=== PATIENT | male | born 1975 | race Caucasian/White ===

== ENCOUNTER 2025-01-28 13:02 | Outpatient (AMB) | payer OTHER, SELFPAY ==
--- OUTSIDE RECORDS SUMMARY | 2014-03-26 06:08 | XMS_ITS | Continuity of Care Document ---
Author Organization [facility] Address [address] [place] [address] Care Team Providers Care Bacteriologist Dairy Name Role Phone Gabrielle BENITEZ, Shantal Unavailable Unavai lable Allergies, Adverse Reactions, Alerts Substance Reaction Status Criticality No Known Allergies Active No Inform ation Medications Medication Instructions Dosage Effective Dates (start - stop) Status Comments metformin 500 mg tablet TAKE 1 TABLET BY MOUTH DAILY WITH DINNER IN 2 WEEKS AND INCREASE TO TWICE A DAY THEREAFTER - Active losartan 50 mg tablet take 1 tablet by oral route every day 50 MG - Active Lipitor 10 mg tablet take 1 tablet by oral route every day 10 MG - Active METFORMIN HCL 500 MG TABLET TAKE 1 TABLET BY MOUTH DAILY WITH DINNER IN 2 WEEKS AND INCREASE TO TWICE A DAY THEREAFTER - No Longer Active metformin 500 mg tablet take 1 tablet by oral route one time daily with dinner and in 2 weeks increase to 2 times every day with morning and evening meals - No Longer Active Procedures Procedure Date Offic/Outpt E&M Estab Low-Mod 4 Systolic BP 140 Or Above Mm Hg 14 Diastolic BP Between 80-89 Mm Hg 2013 BODY MASS INDEX DOCD Current Tobacco Smoker Offic/Outpt E&M Estab Low-Mod 4 Systolic BP 140 Or Above Mm Hg 14 Diastolic BP 90 Or Above Mm Hg 14 BODY MASS INDEX DOCD Glucose Bld Monitr Ysdperj-Fgh-Ruib Use Preven Meds E&M Estab Pt; 18-39 Yr Systolic BP 140 Or Above Mm Hg 14 Diastolic BP 90 Or Above Mm Hg 14 BODY MASS INDEX DOCD Offic/Outpt E&M New Mod Sever 30Min Srvc Prvd Off Add To Basic Srvc 012 Advance Directives Directive Yes / No Effective Date File Name No Information Encounters Encounter Description Practice Location Reason(s) For Visit Diagnoses Date Provider Providers Copied on Encounter [facility] , [address], [place], [place], [id number], [address]. [place] [address] L[address] No Information 4 Gabrielle Murguia. [address] , [address], [place], [address], [place]. tel:[phone] Offic/Outpt E&M Estab LowMod [facility] , [address], [place], [place], [id number], [facility]. [place] [address] LMO Follow up on lab test(s) (chief complaint) DiabetesEssenti al hypertensionHyp erlipidemiaTran saminitis Sep-3 0- 4 Gabrielle Murguia. [address], [address], [place], [address], [place]. tel:[phone] Offic/Outpt E&M Estab LowMod [facility] , [address], [place], [place], [id number], [facility] [address] LMO Discuss blood test results (chief complaint) Essential hypertensionHig h blood sugarTransamini tisBody Mass Index 35.0-35.9, adult Sep-2 -201 4 Gabrielle Murguia. [address] , [address], [place], [address], [place]. tel:[phone] Preven Meds E&M Estab Pt; 18-39 Yr [facility] , [address], [place], [place], [id number], [facility] physical (chief complaint) Hypertensi on (chief complaint) Anxiety (chief complaint) Allergic rhinitis, cause unspecifiedRout ine Medical ExamHypertensio n, BenignRoutine Medical ExamAnxietyAnxi etyRoutine Medical ExamOther specified examinationBody Mass Index 36.0-36.9, adult 4 No Information Offic/Outpt E&M New Mod Sever 30Min [facility] , [address], [place], [place], [id number], [place] [address]. [place] [address] LMO No Information 2 Holly Tineo. [address] [facility], [address], [place], [place], [id number], [place]. tel:[phone] Family History Family Member Type Diagnosis Age At Onset Aunt Problem (finding) Cancer - tongue Uncle Problem (finding) [place] Payers Payer name Insurance type Covered republican ID Authoriza tion(s) Blue [employer] BL [id number] Social History Type Description Quantity Date Captured Comments Sex Male Smoking Status No Information Chief Complaint And Reason For Visit No Information Reason For Referral Reason For Referral No Information Plan Of Treatment Date Type Action Status Future Order: Lab Order BASIC ME TABOLIC PANEL ([id number]), Sent on: Sent Future Order: Lab Order HEPATIC FUNCTION PANEL ([id number]), Sent on: Sent Future Order: Lab Order HEMOGLOBIN A1c (4 96), Sent on: Sent Future Order: Lab Order HEPATITI S PANEL, ACUTE W/REFLEX ([id number]), Sent on: Sent History Of Present Illness Encounter Date Complaint History Of Prese nt Illness Follow up on lab test(s) atient is here to follow-up, repeat blood work showed slightly high A normal hepatitis panel, hemoglobin A1c was 7.8 and blood sugar unfortunately he is losing his insurance today's the last day and hs [facility], denies any new complaintshe has been cutting the losartan in half but no side effects so far after two dosesdenies any cardiopulmonary complaints Discuss blood test results Discuss blood test r esults (comments) patient is here to follow-up, the last blood work showed a blood sugar of 193, ALT was only minily high at 44, LDL was 208, he has had blood pressure currently not taking any blood pressure medication denies any cardiopulmonary complaints he will see an candy depositing machine operator for routine eye exam physical Hypertension Pt ascribes to w boom coat HTN. Pt asx. Anxiety (comments) physical (comments) Hypertension (comments) Anxiety The patient does not present with thoughts of or suicide. The patient denies any nausea and vomiting. Additional information: Mild. Pt declines med or referral. Functional Status Date Functional Assessmen t No Information Medications Administered Medication Instructions Dosage Effective Dates (start - stop) Status Comments METFORMIN HCL 500 MG TABLET TAKE 1 TABLET BY MOUTH DAILY WITH DINNER IN 2 WEEKS AND INCREASE TO TWICE A DAY THEREAFTER - No Longer Active Instructions Date Instruction Additional Infor mation in favor of [place] ht and diet management discussedhe cannot follow up with us anymore, liver ultrasound and further evaluation should be done by PCP as to get established patient was instructed to come in tomorrow to get a copy of his rrds Related to Transaminitis . Continue losartana t 50 mgdailyDASH diet and weight management discussed recheck BMP in diameter to 3 weeksand monitor blood pressure at home Related to Essential hypertension Lipitor was orderedb ut I suggested to holdtill he gets established with his new PCP so we can monitor his LFTdiet management discussed losing weight is strongly recommended Related to Hyperlipidemia discussed the patien t's plasty of insurance and [facility] is [facility] metformin is started, 500 mg daily andincrease to 500 mg twice a day with food in 2 weeks if tolerated he should Establish with new PCPASAP is minimally increased high liver enzyme is in favor of fatty liverand metformin is actually helpful monitor orLFT closely should be seen and blood works redone in the next3-4 weeks + Instructed to monitor and manage his diabetes to maintain a FBS below 80-120 and two hour post prandial sugar of less than 180. Target A1c goal is <7.0.+ Monitor A1c values as instructed. + Instructed the patient to obtain annual diabetic ophthalmologic exams.+ Instructed on well balanced diet and general diabetic care. + Regular exercise program. + Encourage weight loss. -- Labs: A1c, BMP, Lipids, Urn Microalbumin, CBC Related to Diabetes very minimally high ALTs I do not believe this is anything more than mild fatty liver, I would alkaline OTC meds, maintain healthy weight discussed,recheck liver panel and hepatitis panel given his high LDL stocking was ordered, his LT is only minimally high and I do not believe this is contra also indicated for fatty liver side effects reviewed,Recheck and hepatic panel in the next 2 weeks as above follow-up as above and call me as needed otherwise Related to Transaminitis his blood sugar righ t now and nonfasting was 166,I would check the ed and discussed,Diet management discussed,Losing weight also discussed,Further treatment planning would be based on the repeat blood testing Related to High blood sugar blood pressure is co nfirmed high multiple times, at this point I believe is a candidate for hypertensive medication,Normal BMP,Declines any imaging including ultrasound of the kidneys,Losartan was ordered,Side effects reviewed,DASH diet,Recheck BMP in the next 10 days and follow up to recheck the blood prere,Monitor blood pressure at home Related to Essential hypertension Assessments Type Assessment Date No Information Patient Care Teams Name Effective Dates (start - stop) Status Members No Information
--- NOTE | 2025-01-28 13:09 | MHC.PC.OV ---
Vital Signs 01/28/25 13:12 Height 5 ft 8.31 in Weight 234 lb BMI 35.3 BP 125/72 Respiration 18 Pulse 110 H Pulse Source Pulse Oximeter Temp 98.6 F Temp Source Temporal Artery Scan Pulse Oximetry (%) 98 Oxygen Delivery Method Room Air Intake Visit Reasons: establish care Lean Leader Required: No Accompanied by: Self / Same As Patient Allergies No Known Allergies Allergy (Verified 01/28/25 17:09) Medication List - Last Reconciled 01/28/25 by Swapna Douglas PA-C alprazolam 0.5 mg PO BID amlodipine 5 mg PO DAILY hydrocodone-acetaminophen 5-325 mg 1 tab PO BID PRN hydrocortisone 2.5% 1 appl topical BID-TID PRN levetiracetam 1,500 mg PO BID losartan 50 mg PO BID metformin 500 mg PO TID rosuvastatin 5 mg PO DAILY semaglutide (Ozempic) 2 mg subcut QWEEK Tobacco use date assessed: 01/28/25 Dental Screening Dental Screen Date: 01/28/25 Did you have a dental visit in the last 12 months?: Yes Did you have a dental problem in the last 6 months where you did not have access to dental care?: No Was dental information given to patient?: Patient has dentist HPI establish care HPI Details The patient is a 49-year-old male presenting for a new patient appointment and management of multiple chronic conditions. The patient has a history of brain cancer, initially diagnosed after experiencing a bump on the head and subsequent imaging revealing a tumor. He underwent emergency surgery, which was successful in removing the tumor, and has since been under the care of [facility] for follow-up scans. Recently, he underwent another surgery 14 days ago to remove a recurrent tumor, with the procedure involving lifting a titanium plate to access the tumor site. The patient reports a good recovery but is advised against heavy lifting and bending. The patient experiences anxiety, managed with alprazolam prescribed by his previous primary care provider. He takes the medication primarily at night to aid sleep and reduce anxiety symptoms. Hypertension is managed with amlodipine and losartan, with no reported side effects such as leg swelling. The patient has adhesive capsulitis in the shoulder, initially caused by a seizure-related injury. He received a cortisone injection previously, which provided relief, and is considering further orthopedic evaluation and physical therapy. Diabetes mellitus is managed with metformin and Ozempic, with recent blood work showing a non-fasting glucose level and an A1c of 5.6%. The patient seeks a dermatology referral for regular skin examinations due to a family history of melanoma and previous skin excisions. Social History - Employment: Previously worked as a claims clerk and agriculture research director, currently not working due to health issues. - Family status: Has family support living nearby. - Education: Holds a master's degree in nonprofit management. - Exercise: Engages in walking as part of recovery. [facility] Medical History (Updated 01/28/25 @ 17:12 by Swapna Douglas PA-C) Type 2 diabetes mellitus with hemoglobin A1c goal of less than 7.0% Hypertension Anxiety Brain cancer Multiple nevi Frozen shoulder Left shoulder pain Family History Father Prediabetes Mother Lung cancer Social History Housing: Apartment Alcohol intake: current Alcohol intake frequency: holidays/special occasions only Patient Tobacco Use Status: Former Tobacco user service: No Current occupational status: disabled Cognitive needs: No Hearing needs: No Vision needs: Yes (reading glasses) Questionnaire PHQ-9 Over the last 2 weeks, how often have you been bothered by any of the following problems? 1. Little interest or pleasure in doing things: not at all 2. Feeling down, depressed, or hopeless: not at all 3. Trouble falling or staying asleep, or sleeping too much: not at all 4. Feeling tired or having little energy: not at all 5. Poor appetite or overeating: not at all 6. Feeling bad about yourself - or that you are a failure or have let yourself or your family down: not at all 7. Trouble concentrating on things, such as reading the newspaper or watching television: not at all 8. Moving or speaking so slowly that other people could have noticed. Or the opposite - being so fidgety or restless that you have been moving around a lot more than usual: not at all 9. Thoughts that you would be better off or of hurting yourself in some way: not at all Total score: 0 Depression Screening Interpretation: Negative Depression Screening Done: Yes 12641 - PHQ-9 Billing: Yes Source: Developed by Drs. Tremayne Avendano, Estelle Zhang, Kane Moseley and colleagues, with an educational briana from [employer] Thrive Questionnaire Date Thrive assessed: 01/28/25 I am a: Patient What is your living situation today?: I have a steady place to live Within the past 12 months, did the food you bought not last and you didn't have the money to get more?: Never true Within the past 12 months, did you worry whether your food would run out before you got money to buy more?: Never true Do you have trouble paying for medicines?: No Do you have trouble getting transportation to medical appointments?: No Do you have trouble paying your heating and electricity bill?: No Do you have trouble taking care of your child, family member or friend?: No Do you have trouble with day-to-day activities such as bathing, preparing meals, shopping, managing finances, etc.?: No Are you currently unemployed and looking for a job?: No Are you interested in more education?: No Please select the resources that you would like help with: None THRIVE Score: 0 AUDIT C Alcohol Use Questionnaire (AUDIT-C) 1. How often do you have a drink containing alcohol?: Monthly or less 2. How many drinks containing alcohol do you have on a typical day when you are drinking?: 1 or 2 3. How often do you have six or more drinks on one occasion?: Never Total Score: 1 Score Reviewed/Action Taken: No LINDA-7 AMB Questionnaire LINDA-7 Date LINDA - 7 assessed: 01/28/25 Feeling nervous, anxious, or on edge: 0 = Not at all Not being able to stop or control worryin = Not at all Worrying too much about different things: 0 = Not at all Trouble relaxin = Not at all Being so restless that it is hard to sit still: 0 = Not at all Becoming easily annoyed or irritable: 0 = Not at all Feeling afraid as if something awful might happen: 0 = Not at all Total LINDA-7 score (0-4 normal; 5-9 mild; 10-14 moderate; 15-21 severe): 0 Source: Developed by Drs. Tremayne Avendano, Kane Irvinnke and colleagues, with an educational briana from [employer] LINDA-7 Assessment Billing LINDA-7 Assessment Tool: LINDA-7 Assessment 92885 Review of Systems Const Details: - Cardiovascular: Denies chest pain, reports fast heart rate. - Neurological: Reports history of seizures, denies current symptoms. - Musculoskeletal: Reports shoulder pain, limited range of motion. - Dermatological: Reports skin irritation, seeking dermatology referral. - Gastrointestinal: Denies black or bloody stools, reports no unintentional weight loss. All systems reviewed & are unremarkable except as noted in HPI and below Physical exam (Primary Care) Vital Signs: Last Vital Signs Temp 98.6 F 01/28/25 13:12 Pulse 110 H 01/28/25 13:12 Resp 18 01/28/25 13:12 BP 125/72 01/28/25 13:12 Pulse Ox 98 01/28/25 13:12 Oxygen Delivery Method Room Air 01/28/25 13:12 Care Plan Goal for BP management: <140/90 at Goal BMI result Body Mass Index 35.3 BMI Assessment/Plan discussion: High BMI High, discussed plan: lifestyle, weight reduction, dietary, physical activity, alcohol moderation and other Tobacco/Smoking Status: Tobacco use Status Tobacco use date assessed 01/28/25 01/28/25 13:27 Patient Tobacco Use Status Former Tobacco user 01/28/25 13:27 PHQ-9: PHQ-9 Score PHQ-9: Total score 0 01/28/25 13:27 Depression Screening Interpretation: Negative Thrive Assessment: Date of Thrive Assessment Date Thrive assessed 01/28/25 01/28/25 13:27 Const Other: Appearance: Alert. Oriented X3. No acute distress. Head: Normal external exam. Normocephalic. Atraumatic. Scar from recent brain surgery noted. Eyes: Pupils are equal, round, and reactive to light. Extraocular movements intact. Conjunctiva and sclera normal. Eyelids normal. Ears: External auditory canal normal. Tympanic membranes normal. Throat: Pharynx normal. Uvula midline. Moist mucous membranes. Neck: Normal inspection. Neck supple. Full range of motion. No adenopathy. Thyroid Normal. No meningeal signs. No neck mass noted. Cardiovascular: Fast heart rate, but normal rhythm. Heart sound normal. No murmurs noted. Pulses normal throughout. Respiratory: No respiratory distress. Painless inspiration. Breath sounds normal. No wheezes/rales/rhonchi noted. Chest nontender. No accessory muscle usage noted or decreased air movement noted. Abdomen: Soft and nontender. Bowel sounds normal in all 4 quadrants. No distention noted. No organomegaly noted. No visible injury noted. Back: No costovertebral angle tenderness. Full range of motion noted. Skin: Skin warm and dry. Normal skin color. Normal skin turgor. No rashes/lesions/lacerations noted. Recent excisions on back from dermatological procedures. Extremities: No lower extremity edema. Extremities exhibit normal range of motion. Extremities nontender. Limited range of motion in shoulder due to adhesive capsulitis. Neuro: Oriented X 3. No motor deficit. No sensory deficit. Reflexes normal. Results Reviewed Results Reviewed: - Labs: A1c 5.6%, non-fasting glucose level elevated. Coding Level of Care Code New Pt Level 4 (28319) Complex EM visit Add On G2211 Diagnoses Brain cancer C71.9 Anxiety F41.9 Hypertension I10 Frozen shoulder M75.00 Left shoulder pain M25.512 Type 2 diabetes mellitus with hemoglobin A1c goal of less than 7.0% E11.9 Multiple nevi D22.9 Additional Codes PHQ-9 - 37560 - PHQ-9 Billing: Yes ([id number]) LINDA-7 Assessment Billing - LINDA-7 Assessment Tool: LINDA-7 Assessment 88432 ([id number]) Time Spent (min) 50 Assessment & Plan Assessment & Plan (1) Brain cancer: Code(s): C71.9 - Malignant neoplasm of brain, unspecified Category: Medical Plan: The patient will continue follow-up with his oncologist, Dr. Scott, with a virtual appointment scheduled for February 01 to discuss biopsy results and further management. He is advised to avoid heavy lifting and bending during recovery. Patient will also be reduced from [place] every 6 hours 2 [place] 5 x 325 twice a day. Patient understands agrees with this plan. (2) Anxiety: Code(s): F41.9 - Anxiety disorder, unspecified Category: Medical Plan: The patient will continue taking alprazolam, with a plan to reduce the dosage to two pills per day. A pain contract will be signed, and a drug test will be conducted to monitor medication use. (3) Hypertension: Code(s): I10 - Essential (primary) hypertension Category: Medical Plan: The patient will continue current antihypertensive medications, amlodipine and losartan, with no changes discussed. (4) Frozen shoulder: Code(s): M75.00 - Adhesive capsulitis of unspecified shoulder Category: Medical Plan: The patient will be referred to orthopedics and pain management for further evaluation and possible cortisone injection. Physical therapy will be considered to improve shoulder mobility. (5) Left shoulder pain: Code(s): M25.512 - Pain in left shoulder Category: Medical Plan: The patient will be referred to orthopedics and pain management for further evaluation and possible cortisone injection. Physical therapy will be considered to improve shoulder mobility. (6) Type 2 diabetes mellitus with hemoglobin A1c goal of less than 7.0%: Code(s): E11.9 - Type 2 diabetes mellitus without complications Category: Medical Plan: The patient will continue current diabetes management with metformin and Ozempic, with no changes discussed. (7) Multiple nevi: Code(s): D22.9 - Melanocytic nevi, unspecified Category: Medical Plan: A referral to dermatology will be made for regular skin examinations due to a family history of melanoma. Plan Plan Patient was informed and verbally consented to the use of an ambient scribe for clinic note documentation during this visit. 1. Brain Cancer The patient will continue follow-up with his oncologist, Dr. Scott, with a virtual appointment scheduled for February 01 to discuss biopsy results and further management. He is advised to avoid heavy lifting and bending during recovery. 2. Anxiety The patient will continue taking alprazolam, with a plan to reduce the dosage to two pills per day. A pain contract will be signed, and a drug test will be conducted to monitor medication use. 3. Hypertension The patient will continue current antihypertensive medications, amlodipine and losartan, with no changes discussed. 4. Adhesive Capsulitis The patient will be referred to orthopedics and pain management for further evaluation and possible cortisone injection. Physical therapy will be considered to improve shoulder mobility. 5. Diabetes Mellitus The patient will continue current diabetes management with metformin and Ozempic, with no changes discussed. 6. Preventative Care: Dermatology Referral For Skin Examination A referral to dermatology will be made for regular skin examinations due to a family history of melanoma. I discussed with the patient the importance of continuing follow-up with his oncologist for brain cancer management, including the upcoming virtual appointment to review biopsy results. We also talked about managing anxiety with a reduced dosage of alprazolam and the necessity of signing a pain contract and undergoing drug testing. For hypertension, the patient will maintain his current medication regimen. I recommended referrals to orthopedics and pain management for his shoulder condition and discussed the potential benefits of physical therapy. We agreed on a dermatology referral for regular skin checks due to his family history of melanoma. Orders: Orders PT Evaluation and Treatment Today M25.512 - Pain in left shoulder, M75.00 - Adhesive capsulitis of unspecified shoulder XR shoulder LT min 2V Today M25.512 - Pain in left shoulder, M75.00 - Adhesive capsulitis of unspecified shoulder Drug Screen Urine Today M25.512 - Pain in left shoulder, M75.00 - Adhesive capsulitis of unspecified shoulder Referrals Orthopedics Referral M25.512 - Pain in left shoulder, M75.00 - Adhesive capsulitis of unspecified shoulder Pain Management Referral M25.512 - Pain in left shoulder, M75.00 - Adhesive capsulitis of unspecified shoulder Dermatology Referral D22.9 - Melanocytic nevi, unspecified Medications: New hydrocortisone 2.5% 1 appl topical BID-TID PRN 454 grams 1RF itching Patient Instructions: - Continue follow-up with your oncologist and attend the virtual appointment on February 01. - Take alprazolam as prescribed, reducing to two pills per day. - Maintain current blood pressure medications and monitor for any side effects. - Follow up with orthopedics and pain management for shoulder evaluation and consider physical therapy. - Schedule a dermatology appointment for a skin examination. - Complete the drug test as instructed and sign the pain contract.
[2025-01-28 13:12] VITALS: BP 125/72; PULSE 110; RESP 18; TEMP 37; O2SAT 98; BMI 35.3
--- OUTSIDE RECORDS SUMMARY | 2025-01-28 14:17 | XMS_ITS | Encounter Summary ---
Author Organization [facility] Address [address] [place] [id number] Phone Care Team Providers Care Poultry Hatchery Manager Name Role Phone Self-Referred, Patient Unavailable Unavailab Lucio Arora MD Primary Care Provider [phone] Encounter Details Date Type Department Care Team (Late st Contact Info) Description 01/13/[address] [facility] [address] [place] [address] Social History Tobacco Use Types Packs/Day Years Used Date Smoking Tobacco: Former Cigarettes Smokeless Tobacco: Never Comments:Quit 2015 Uses nicotine gum Alcohol Use Standard Drinks/Week Comments Yes 0 (1 standard drink = 0.6 oz pur e alcohol) 3 drinks per week Child or Family Care Answer Date Record ed Do you have problems with on e of the following making it difficult for you to work, study, or receive health care? No 12/30/2024 Education Answer Date Recorded Are you interested in help w ith more adult education (for example, completing high school, GED, job training, learning the [place] language, technical skills, or developing parenting skills)? No 12/30/2024 Are you concerned about learning? Not on file 12/30/2024 No 12/30/2024 Yes 12/30/2024 Food Answer Date Recorded Within the past 6 months we worried whether our food would run out before we got money to buy more. Never True 01/13/2025 Within the past 6 months the food we bought just didn't last and we didn't have enough money to get more. Never True Residential Stability Answer Date Recor ded What is your housing situation today? I have vesta deshpande 01/13/2025 How many times have you moved in the past 12 sat ths? One time 01/13/2025 Paying for Meds Answer Date Recorded Do you have trouble paying for medicines? No 01/13/2025 Paying Utility Bills Answer Date Record ed Do you have trouble paying your heating or elect ricity bill? No 01/13/2025 Transportation Answer Date Recorded Has the lack of transportati on kept you from medical appointments or from getting medications? No 01/13/2025 Digital Access Answer Date Recorded No 01/13/2025 Yes 01/13/2025 Do you have reliable internet access at home? Ye s 01/13/2025 Do you have a device (e.g., phone, tablet, computer) with a working camera? Yes 01/13/2025 Intimate Partner Violence Answer Date R ecorded Are you denied basic needs s uch as food, clothing, or medical care? No 01/13/2025 In the past 12 months have y ou been in a relationship with a person who hurts, threatens, or tries to control you? No 01/13/2025 Are you denied basic needs s uch as food, clothing, or medical care? No 01/13/2025 In the past 12 months have y ou been in a relationship with a person who hurts, threatens, or tries to control you? No 01/13/2025 Sex and Gender Information Value Date Recorded Sex Assigned at Male 08/18/2024 2:58 PM EDT Legal Sex Male 2:57 PM EDT Gender Identity Male 08/18/2024 2:58 PM EDT Sexual Orientation Straight 08/18/2024 2: 58 PM EDT documented as of this encounter Functional Status * Calculated C-SSRS Risk Score (Lifetime/Recent) Answer Date of Assessment Author No Risk Indicated 01/14/2025 4:00 AM Bev Parra RN * [place] Suicide Severity Rating Scale (Screener/Recent Self-Report) Question Answer Date of Assessment Author 1. Wish to be (Past 1 Month) No 025 4:00 AM Bev Parra RN 2. Non-Specific Active Suici wilder Thoughts (Past 1 Month) No 01/14/2025 4:00 AM EDT Sergey Harrell RN 6. Suicidal Behavior (Lifetime) No 4:00 AM EDT Bev Harrell RN documented as of this encounter Plan of Treatment Upcoming Encounters Date Type Department Care Team (Late st Contact Info) Description 02/01/2025 2:00 PM EDT [facility] [address] [place] [address] Meghna Galeano MD, MPH [address] [place] [id number] [email or web address] documented as of this encounter Visit Diagnoses Not on filedocumented in this encounter Care Teams Poultry Hatchery Manager Relationship Specialty Start Date End Date Lucio Bhatt MD [address] [place] [id number] PCP - General Internal Medicine 08/18/24 Self-Referred, Patient 08/18/24 documented as of this encounter Additional Source Comments The information contained in this document represents components of the legal health record. It is not the complete legal health record.[facility]
--- OUTSIDE RECORDS SUMMARY | 2025-01-28 14:17 | XMS_ITS | Clinical Summary ---
Author Organization [facility] Address [address] [id number] Phone Care Team Providers Care Prepress Specialist Name Role Phone Self-Referred, Patient Unavailable Unavailab Lucio Arora MD Primary Care Provider [phone] Allergies No known active allergies Medications HYDROcodone-les taminophen (NORCO) 5-325 mg per tablet Take 1 tablet by mouth every 6 (six) hours as needed. 12/15/19 25 Active acetaminophen (TYLENOL) 500 MG tablet Take 1,000 mg by mouth. 04/07/20 24 Active ALPRAZolam (XANAX) 0.5 MG tablet Take 0.5 mg by mouth. 12/11/19 25 Active amLODIPine (NORVASC) 5 MG tablet Take 5 mg by mouth daily. Active atorvastatin (LIPITOR) 20 MG tablet Take 1 tablet by mouth daily. Active losartan (COZAAR) 50 MG tablet Take 50 mg by mouth 2 (two) times a day. Active metFORMIN (GLUCOPHAGE) 500 MG tablet Take 500 mg by mouth 4 (four) times a day. Active rosuvastatin (CRESTOR) 5 MG tablet Take 5 mg by mouth daily. Active OZEMPIC 2 mg/dose (8 mg/3 mL) subcutaneous injection pen inject 2 mg subcutaneously every 7 days Active FREESTYLE 28 gauge lancets Active polyethylene glycol (MIRALAX) 17 gram packet Take 17 g by mouth daily as needed for other (free text field) (severe constipation). 01/15/20 25 Active oxyCODONE 5 MG immediate release tablet Take 0.5-1 tablets (2.5-5 mg total) by mouth every 6 (six) hours as needed for pain (specific location in comments). Partial fill ok 10 tablet 01/15/20 25 Active HYDROcodone-les taminophen (NORCO) 5-325 mg per tablet Take 1 tablet by mouth every 6 (six) hours as needed for pain (specific location in comments). Partial fill ok 15 tablet 01/15/20 25 Active levETIRAcetam (KEPPRA) 750 MG IMMEDIATE release tablet Take 1 tablet (750 mg total) by mouth 2 (two) times a day. 180 tablet 01/27/20 25 Active levETIRAcetam (KEPPRA) 750 MG IMMEDIATE release tablet Take 750 mg by mouth. 12/11/19 25 025 Discontinu ed(Reorder ) dexAMETHasone (DECADRON) 1 MG tablet Take 4 tablets (4 mg total) by mouth 2 (two) times a day with meals for 1 day, THEN 2 tablets (2 mg total) 2 (two) times a day with meals for 1 day, THEN 1 tablet (1 mg total) 2 (two) times a day with meals for 1 day. 14 tablet 01/15/20 25 025 Active Problems Problem Noted Date Diagnosed Date Brain lesion 01/13/2025 Glioblastoma 11/11/2024 Encounters Date Type Department Care Team Description 01/26/2025 Orders Only [facility] [address] [facility], 9th [place] [address] Zara Rooney NP 01/21/2025 11:30 AM EDT Office Visit [facility] Department of Neurosurgery [address] [place] [address] Aroldo Knapp MD Moran, Christine, PA-C Glioblastoma (Primary Dx) 01/15/2025 Telephone [facility] [address] [place] [address] Francesca Mcmahon PA-C 01/13/2025 9:30 AM EDT - 01/13/2025 2:[address] [facility] Periop [address] [place] [address] Aroldo Knapp MD Right craniotomy for tumor resection (MONITORING CONFIRMED FOR 01/13 AT 9:30AM) 01/13/2025 9:24 AM EDT Anesthesia Event [facility] Periop [address] [place] [address] Ariana Monge MD Cavagnaro, Laura Kristen, RN 01/13/2025 7:37 AM EDT - 01/14/2025 2:56 PM EDT Hospital Encounter [facility] 5D [address] [place] [address] Aroldo Knapp MD Discharge Disposition: Home or Self Care 01/13/2025 Procedure Pass [facility] [address] [place] [address] 01/13/[address] [facility] Periop [address] [place] [address] 01/12/2025 10:24 AM EDT - 01/12/2025 11:59 PM EDT Hospital Encounter [facility] Laboratory [address] [place] [address] Aroldo Knapp MD Discharge Disposition: Home or Self Care 01/12/[address] [facility] Department of Neurosurgery [address] [place] [address] Rosa Garcia, RN 01/11/[address] [facility] Department of Neurosurgery [address] [place] [address] Rosa Garcia, RN 01/11/[address] [facility] Department of Neurosurgery [address] [place] [address] Rosa Garcia, RN 01/08/2025 1:07 PM EDT - 01/08/2025 11:59 PM EDT Hospital Encounter [facility], [facility] [address] [place] [address] Discharge Disposition: Home or Self Care 01/08/2025 Orders Only [facility], [facility] [address] [facility], 9th [place] [address] Meghna Galeano MD, MPH Glioma (Primary Dx) 01/07/2025 3:30 PM EDT Pre-Admission Testing [facility] [address] [facility] 2[address] [place] [address] Aroldo Knapp MD Pre-op evaluation (Primary Dx) 01/01/2025 3:26 PM EDT - 01/01/2025 11:59 PM EDT Hospital Encounter [facility] Anatomic Pathology [address] [place] [address] Discharge Disposition: Home or Self Care 12/31/2024 1:30 PM EDT Telemedicine [facility] Neurosurgery [facility] [address] [facility], 9th Floor, [address] [place] [address] Aroldo Knapp MD Glioblastoma (Primary Dx) 12/31/[address] [facility] Department of Neurosurgery [address] [place] [address] Aroldo Knapp MD 12/30/2024 11:30 AM EDT Office Visit [facility], [facility] [place] [address] [facility], [address]th [place] [address] Meghna Galeano MD, MPH Glioblastoma (Primary Dx) 12/30/2024 7:10 AM EDT - 12/30/2024 11:59 PM EDT Hospital Encounter [facility], [facility] [address] [address] Meghna Galeano MD, MPH Discharge Disposition: Home or Self Care 11/11/2024 3:00 PM EDT Office Visit [facility], [facility] [address] [facility], [address]th [place] [address] Meghna Galeano MD, MPH Glioblastoma (Primary Dx) 11/11/2024 Procedure Pass [facility], [facility] [address] [address] 11/04/2024 10:05 AM EDT - 11/04/2024 11:59 PM EDT Hospital Encounter [facility], [facility], MRI [address] [facility] [place] [address] Aashish Jackson MD Discharge Disposition: Home or Self Care 09/02/2024 Procedure Pass [facility], [facility], MRI [address] [place] [address] from Last 3 Months Social History Tobacco Use Types Packs/Day Years Used Date Smoking Tobacco: Former Cigarettes Smokeless Tobacco: Never Tobacco Cessation:Counseling Given: Not Answered Comments:Quit 2015 Uses nicotine gum Alcohol Use [...] high school, GED, job training, learning the [place] language, technical skills, or developing parenting skills)? [...] your housing situation today? I have vesta sing 01/13/2025 How many times have you moved [...] Orientation Straight 08/18/2024 2: 58 PM EDT Last Filed Vital Signs Vital Sign Reading Time Taken Comments Blood Pressure 164/82 01/21/2025 11:20 AM EDT Pulse 105 01/21/2025 11:20 AM EDT Temperature 37.2 C (99 F) 01/21/2025 11:20 AM EDT Respiratory Rate 16 01/21/2025 11:2 0 AM EDT Oxygen Saturation 98% 01/21/2025 11: 20 AM EDT Inhaled Oxygen Concentration 100% 01/13/2025 1 :35 PM EDT Weight 107.1 kg (236 lb 1.6 oz) 025 11:20 AM EDT Height 171.5 cm (5' 7.52 ) 01/21/2025 1 1:20 AM EDT Body Mass Index 36.41 01/21/2025 11:20 AM EDT Plan of Treatment Upcoming Encounters Date Type Department Care Team (Late st Contact Info) Description 02/01/2025 2:00 PM EDT [facility]icine [facility] [address] [facility], [address]th [place] [address] Meghna Galeano MD, MPH [address] [place] [address], [place] [address] [email or web address] Maintenance Due Date Last Done Comments Adult Td,Tdap Booster 1975 DEPRESSION SCREENING 1987 SMOKING Hx and SMOKELESS TOBACCO SCREENING 10/15/1988 HEPATITIS C SCREENING 10/15/1993 HIV ONE-TIME SCREENING (18-65 YEARS) 10/15/1993 PNEUMOCOCCAL VACCINES (0-49 years) (1 of 2 - PCV) 10/15/1994 COLOGUARD 10/15/2020 COLONOSCOPY 10/15/2020 COLORECTAL CANCER SCREENING 10/15/2020 FIT TEST 10/15/2020 FOBT 10/15/2020 SIGMOIDOSCOPY 10/15/2020 VIRTUAL COLONOSCOPY 10/15/2020 INFLUENZA VACCINE (#1) 2024 COVID-19 VACCINE ( season) 2025 HEMOGLOBIN A1C 05/29/2025 11/26/2024, 07/11/2024 BLOOD PRESSURE 07/24/2025 01/21/2025 DIABETIC EYE EXAM 12/04/2025 12/04/2024, , 09/27/2023, Additional history exists CREATININE LEVEL 01/14/2026 01/14/2025, , 12/30/2024, Additional history exists POTASSIUM LEVEL 01/14/2026 01/14/2025, 12/26, 12/30/2024, Additional history exists HEPATITIS A VACCINES Aged Out No long er eligible based on patient's age to complete this topic HIB VACCINES Aged Out No longer eligi ble based on patient's age to complete this topic MENINGOCOCCAL VACCINES (ACWY) Aged Out No longer eligible based on patient's age to complete this topic MENINGOCOCCAL VACCINES (B) Aged Out N o longer eligible based on patient's age to complete this topic Medical Devices Implanted Type Area Loader [employer] Dies Device Identifier Shelf Expiration Date Model / Serial / Lot Graft Tissue 2.0 Oliva Duragen Plus Ultra Pure Collagen Regeneration Matrix Dural Ca/1ea - [id number] Implanted:Qty: 1 on 01/13/2025 by Aroldo Knapp MD at [facility] STANDARD Right: Cranial [employer]NA 07/25/2027 [id number] / / [id number] Titanium Description:In skull Plate In Head Procedures Procedure Name Priority Date/Time Associated Diagnosis Comments POCT GLUCOSE Routine 01/14/2025 12:30 PM EDT BASIC METABOLIC PANEL Routine 01/14/2025 7:31 AM EDT CBC Routine 01/14/2025 7:31 AM EDT MAGNESIUM Routine 01/14/2025 7:31 AM EDT POCT GLUCOSE Routine 01/14/2025 7:23 AM EDT MRI BRAIN WITH AND WITHOUT CONTRAST Imaging within next 12 hours 01/14/2025 1:17 AM EDT POCT GLUCOSE Routine 01/13/2025 10:37 PM EDT POCT GLUCOSE Routine 01/13/2025 4:25 PM EDT ECG 12-LEAD Routine 01/13/2025 3:47 PM EDT PTT STAT 01/13/2025 1:48 PM EDT PT-INR STAT 01/13/2025 1:48 PM EDT CBC STAT 01/13/2025 1:48 PM EDT BASIC METABOLIC PANEL STAT 01/13/2025 1:48 PM EDT POCT GLUCOSE Routine 01/13/2025 1:47 PM EDT ANATOMIC PATHOLOGY Routine 01/13/2025 12:09 PM EDT NC INSERT CATH ART PERCUT SHORTTERM PERF Routine 01/13/2025 10:21 AM EDT AIRWAY PLACEMENT Routine 01/13/2025 9:54 AM EDT NC EXCIS SUPRATENT BRAIN TUMOR 01/13/2025 9:12 AM EDT Brain tumor Special Needs Laterality: RightSurgical Control Time: 4 hours Patient Position: LateralEquipment: Microscope, Becky Bipolars, Brainlab, Ultrasound , and Ultralow bedICU needs: CRANI Pathway(MONITORING CONFIRMED FOR 01/13 AT 9:30AM) POCT GLUCOSE Routine 01/13/2025 8:00 AM EDT TYPE AND SCREEN (ABO,RH,ANTIBODY SCREEN) Routine 01/12/2025 10:25 AM EDT Pre-op evaluation PT-INR Routine 01/12/2025 10:25 AM EDT Pre-op evaluation PTT Routine 01/12/2025 10:25 AM EDT Pre-op evaluation ONCOPANEL Routine 01/08/2025 1:08 PM EDT Glioma MRI BRAIN WITH AND WITHOUT CONTRAST Routine 12/30/2024 8:23 AM EDT Glioblastoma COMPREHENSIVE METABOLIC PANEL Routine 12/30/2024 7:06 AM EDT Glioblastoma HC BLOOD COUNT COMPLETE AUTO&AUTO DIFRNTL WBC Routine 12/30/2024 7:06 AM EDT Glioblastoma MRI BRAIN (TUMOR) WITH AND WITHOUT CONTRAST Routine 11/04/2024 10:49 AM EDT Glioblastoma COMPREHENSIVE METABOLIC PANEL Routine 11/04/2024 10:03 AM EDT Glioblastoma HC BLOOD COUNT COMPLETE AUTO&AUTO DIFRNTL WBC Routine 11/04/2024 10:03 AM EDT Glioblastoma from Last 3 Months Results * (ABNORMAL) POCT Glucose (01/14/2025 12:30 PM EDT) Only the most recent of6 resultswithin the time period is included. Glucose, POCT 209(H) 70 - 100 mg/dL [facility] 01/14/2025 12:3 0 PM EDT 01/14/2025 12:33 PM EDT Aroldo Knapp MD POINT OF CARE TEST ORDERABLES Fi nal Result Performing Organization Address City/[facility] Co de Phone Number [facility] [address] [place] [phone] * (ABNORMAL) CBC (01/14/2025 7:31 AM EDT) Only the most recent of2 resultswithin the time period is included. WBC 11.94(H) 4.00 - 11.00 K/uL [facility] RBC 4.36(L) 4.50 - 5.90 M/uL [facility] HGB 13.0(L) 13.5 - 17.5 g/dL [facility] HCT 39.1(L) 41.0 - 53.0 % [facility] PLT 322 150 - 450 K/uL [facility] MCV 89.7 80.0 - 100.[address] [facility] MCH 29.8 27.0 - 31.[address] [facility] MCHC 33.2 32.0 - 36.0 g/dL [facility] RDW 13.3 11.5 - 14.5 % [facility] MPV 8.9 8.4 - 12.[address] [facility] NRBC 0.00 0.00 /[address] [facility] ABSOLUTE NRBC 0.00 0.00 K/uL [facility] Blood 01/14/2025 7:31 AM EDT 01/14/2025 7:59 AM EDT us Aroldo Knapp MD LAB BLOOD ORDERABLES Final Resul t Performing Organization Address City/[facility]/ZIP Co de Phone Number [facility] [address] [place] [phone] * Magnesium (01/14/2025 7:31 AM EDT) MAGNESIUM 1.8 1.7 - 2.6 mg/dL [facility] Blood 01/14/2025 7:31 AM EDT 01/14/2025 7:59 AM EDT Aroldo Knapp MD LAB BLOOD ORDERABLES Final Resul t Performing Organization Address [facility] de Phone Number [facility] [address] [place] [phone] * (ABNORMAL) Basic metabolic panel (01/14/2025 7:31 AM EDT) Only the most recent of2 resultswithin the time period is included. SODIUM 139 136 - 145 mmol/L [facility] POTASSIUM 4.0 3.4 - 5.1 mmol/L [facility] CHLORIDE 104 98 - 107 mmol/L [facility] CO2 25 22 - 31 mmol/L [facility] BUN 6 6 - 23 mg/dL [facility] CREATININE 0.62 0.50 - 1.20 mg/dL [facility] GLUCOSE 178(H) 70 - 100 mg/dL [facility] CALCIUM 9.0 8.8 - 10.7 mg/dL [facility] EGFR 117 >59 mL/min/1.[address] [facility] Comment:Estimated glomerular filtration rate calculated using the CKD-EPI refit equation. ANION GAP 10 7 - 17 mmol/L [facility] Blood 01/14/2025 7:31 AM EDT 01/14/2025 7:59 AM EDT us Aroldo Knapp MD LAB BLOOD ORDERABLES Final Resul t Performing Organization Address [facility] de Phone Number [facility] [address] [place] [phone] * MRI BRAIN WITH AND WITHOUT CONTRAST (01/14/2025 1:17 AM EDT) Anatomical Region Laterality Modality Head Magnetic Resonan ce 01/14/2025 7:43 AM EDT Impressions 01/14/2025 9:01 AM EDT 1. Overall expected postsurgical changes of right parietal craniotomy for mass resection. 2. Trace layering intraventricular blood products. No evidence of hydrocephalus. ATTESTATION: I, Pantera Barger, as teaching physician have reviewed the images, if any, for this patient's exam, and if necessary, have edited the report originally created by Latasha Colmenares. Narrative 01/14/2025 9:01 AM EDT MRI BRAIN WITH AND WITHOUT CONTRAST Referring clinician's provided indication for this examination in [facility]: * Brain mass or lesion Review of the Electronic Medical Record reveals an additional history of: Per neurosurgery report: History significant for PMHx R parietal crani s/p resection 01/2025 (OSH), now presents with disease recurrence. Now, s/p R redo crani for resection with Dr. Knapp on 01/13/25. TECHNIQUE: MRI BRAIN WITH AND WITHOUT CONTRAST Multi-sequence, multi-planar MRI of the brain was performed before and after intravenous contrast. COMPARISON: MRI BRAIN WITH AND WITHOUT CONTRAST ; MRI BRAIN (TUMOR) WITH AND WITHOUT CONTRAST ; MRI BRAIN (TUMOR) WITH AND WITHOUT CONTRAST FINDINGS: Brain Parenchyma: Interval right posterior parietal craniotomy for resection of enhancing mass with small-volume postoperative cast of blood products within the resection cavity. Linear foci of reduced diffusivity along the resection margin, likely reflecting devitalized tissue and adjacent blood products. Scattered foci of predominantly linear enhancement immediately along the resection margin. Slightly increased degree of FLAIR hyperintensity subjacent to the resection site. Similar scattered small chronic infarctions involving the left winters radiata, bilateral basal ganglia, and bilateral cerebellar hemispheres. Ventricular System and Extra-Axial Spaces: Small-volume layering intraventricular hemorrhage within the occipital horns. No evidence of hydrocephalus. Extracranial Structures: Expected arterial flow signal is observed at the skull base. Paranasal sinuses mastoid air cells are clear. Procedure Note Pantera Barger MD - 01/14/2025 MRI BRAIN WITH AND WITHOUT CONTRAST Referring clinician's provided indication for this examination in [facility]: *Brain mass or lesion Review of the Electronic Medical Record reveals an additional history of: Per neurosurgery report: History significant for PMHx R parietal cranis/p resection 01/2025 (OSH), now presents with disease recurrence. Now, s/pR redo crani for resection with Dr. Knapp on 8/20/25. TECHNIQUE: MRI BRAIN WITH AND WITHOUT CONTRAST Multi-sequence, multi-planar MRI of the brain was performed before andafter intravenous contrast. COMPARISON: MRI BRAIN WITH AND WITHOUT CONTRAST ; MRI BRAIN(TUMOR) WITH AND WITHOUT CONTRAST ; MRI BRAIN (TUMOR) WITH ANDWITHOUT CONTRAST FINDINGS: Brain Parenchyma: Interval right posterior parietal craniotomy forresection of enhancing mass with small-volume postoperative cast of bloodproducts within the resection cavity. Linear foci of reduced diffusivityalong the resection margin, likely reflecting devitalized tissue andadjacent blood products. Scattered foci of predominantly linearenhancement immediately along the resection margin. Slightly increaseddegree of FLAIR hyperintensity subjacent to the resection site. Similar scattered small chronic infarctions involving the left coronaradiata, bilateral basal ganglia, and bilateral cerebellar hemispheres. Ventricular System and Extra-Axial Spaces: Small-volume layeringintraventricular hemorrhage within the occipital horns. No evidence ofhydrocephalus. Extracranial Structures: Expected arterial flow signal is observed at theskull base. Paranasal sinuses mastoid air cells are clear. IMPRESSION: 1. Overall expected postsurgical changes of right parietal craniotomy formass resection. 2. Trace layering intraventricular blood products. No evidence ofhydrocephalus. ATTESTATION: I, Pantera Barger, as teaching physician have reviewed theimages, if any, for this patient's exam, and if necessary, have edited thereport originally created by Latasha Colmenares. Aroldo Knapp MD IMG MR HEAD/NECK Final Result * ECG 12-LEAD (01/13/2025 3:47 PM EDT) Systolic Blood Pressure 151 mmHg [facility] Diastolic Blood Pressure 74 mmHg [facility] Ventricular Rate EKG/MIN 119 BPM [facility] Atrial Rate 119 BPM [facility] NC Interval 180 ms [facility] QRS Duration 88 ms [facility] QT Interval 320 ms [facility] QTC Interval 450 ms [facility] P [place] 58 degrees [facility] R Wave [place] -74 degrees [facility] T Wave [place] 73 degrees [facility] 01/13/2025 3:47 PM EDT Narrative [facility] - 01/14/2025 3:21 PM EDT Sinus tachycardia Left axis deviation Abnormal ECG Lucio Tucker PA-C ECG ORDERABLES Final Resul t Performing Organization Address City/[facility] Co de Phone Number [facility] * PTT (01/13/2025 1:48 PM EDT) Only the most recent of2 resultswithin the time period is included. APTT 26.0 24.0 - 37.[address] [facility] Comment:Emicizumab (Hemlibra ) treatment can result in falsely lowered aPTT test results. Blood 01/13/2025 1:48 PM EDT 01/13/2025 1:53 PM EDT Aroldo Knapp MD LAB BLOOD ORDERABLES Final Resul t Performing Organization Address [facility] Co de Phone Number [facility] [employer] [address] [place] [phone] * PT-INR (01/13/2025 1:48 PM EDT) Only the most recent of2 resultswithin the time period is included. PT 11.3 10.0 - 13.[address] [facility] INR 1.0 0.9 - 1.1 [facility] Blood 01/13/2025 1:48 PM EDT 01/13/2025 1:53 PM EDT Aroldo Knapp MD LAB BLOOD ORDERABLES Final Resul t Performing Organization Address City/[facility] Co de Phone Number [facility] [employer] [address] [place] [phone] * Anatomic Pathology (01/13/2025 12:09 PM EDT) 01/13/2025 12:0 9 PM EDT 01/13/2025 12:[address] [facility] - 01/18/2025 1:01 PM EDT CASE: [id number] PATIENT: MÓNICA HURST Date: 1975 Sex: Male [facility] Department of Pathology [address] [place] [address] License No.: [id number] Clinical Education Consultant: Dr. Joe Belcher M.D., Ph.D. Physician: AROLDO KNAPP MD Procedure Date: 01/13/2025 Resident: Domenico Whitfield M.D., Ph.D. Pathologist: Dimas Simpson M.D. PATHOLOGIC DIAGNOSIS: A. RIGHT PARIETAL LESION: RECURRENT/RESIDUAL GLIOBLASTOMA, IDH-WILDTYPE, W.H.O. GRADE 4. See SYNOPTIC REPORT below. B. RIGHT PARIETAL LESION: GLIOBLASTOMA W.H.O. grade 4 IDH1/IDH2 status: negative for mutations (by sequencing) MGMT Promoter: Unmethylated RECURRENT/RESIDUAL Comment: Surgery #2 NOTE: The overall size of the specimen is large Tumor infiltrates brain parenchyma Prior specimen was reviewed: [id number] The tumor's histologic appearance compared to the prior biopsy: Similar Evidence of histologic progression: not present Treatment effect: Viable Tumor: 30% Necrosis: 40% Normal/Reactive: 30% W.H.O. Histologic Grading Criteria Cellularity: Dense Atypia: Moderate Mitoses: Present Vascular Proliferation: Present Necrosis: Present Pathology Clinical Notes: 49 year old male, with history of migraines, GBM (IDHwt, MGMT promoter unmethylated ) s/p craniotomy w/ resection (04/04/2024) and RT/TMZ (06/01/2024-07/10/2024), DM, and seizures. MRI shows increased nodular enhancement in the right parietal lobe with increased surrounding FLAIR hyperintensity. Tumor Tissue Adequacy: large >1.0 cm in multiple blocks Primary Advanced Study Blocks: B5, 1.2 cm, 70% tumor, 5% necrosis, scroll Tissue Submitted to tissue bank: No Clinical frozen tissue: Yes MGMT promoter methylation: Performed on previous specimen: Unmethylated OncoPanel: Performed on previous specimen: [id number] CLINICAL DATA: History: Brain tumor. Operation: Right craniotomy for tumor resection. Operative Findings: None provided. Clinical Diagnosis: None provided. TISSUE SUBMITTED: A/1. Right parietal lesion B/2. Right parietal lesion O.R. CONSULTATION: SPECIMEN LABELED A. RIGHT PARIETAL LESION (FSA, SMA): FSA: Recurrent/residual infiltrating glioma. SMA: Non-contributory. OR Consultation by: Dimas Simpson M.D. Resident: Angie Moody M.D. The senior physician certifies that he/she personally conducted a gross and/or microscopic examination of the described specimen(s) and rendered or confirmed the rapid diagnos(es) related thereto. GROSS DESCRIPTION: The specimen is received in 2 parts, each labeled with the patient's name and medical record number. Part A received fresh for intraoperative consultation labeled Right parietal lesion consists of is a carroll-pink soft tissue fragment (1.2 x 0.7 x 0.4 cm). Chain Saw Driver sections are frozen for FSA and allocated for clinical frozen. The specimen is entirely submitted. A1: FSA remnant, 3 pieces A2: Remainder of specimen, 1 piece Part B received in formalin labeled Right parietal lesion consists of a carroll-brown soft tissue fragment (2.2 x 1.5 x 1.2 cm). The specimen is serially sectioned displaying a hemorrhagic cut surface. The specimen is entirely submitted. B1-B5: Remainder of specimen Dictated by: An Santacruz By his/her signature below, the senior physician certifies that he/she personally conducted a microscopic examination ( gross only exam if so stated) of the described specimen(s) and rendered or confirmed the diagnosis(es) related thereto. Final Diagnosis by Dimas Simpson M.D., Electronically signed on Saturday January 18, 2025 at 01:01:22PM Aroldo Knapp MD PATHOLOGY ORDERABLES Final Resul t Performing Organization Address City/State/[facility] Co de Phone Number [facility] [address] [place] [id number] * NC INSERT CATH ART PERCUT SHORTTERM PERF (01/13/2025 10:21 AM EDT) Narrative An Holden MD - 01/13/2025 10:21 AM EDT An Holden MD 01/13/2025 10:21 AM Arterial Line Placement Procedure Note: Start Time 01/13/2025 9:28 AM: Location: PACU Procedure performed by: anesthesiologist, fellow/resident/INSTRUMENT REPAIR SUPERVISOR and other anesthesia staff Anesthesiologist: Ariana Monge MD Fellow/Resident/INSTRUMENT REPAIR SUPERVISOR: An Holden MD Other Anesthesia Staff: Mari Galarza MD, MS Indication(s): hemodynamic monitoring and frequent labs [place] Protocol performed: consent obtained, patient identified with 2 identifiers, correct procedure verified, correct site and laterality confirmed, verified equipment, coagulation status reviewed and implant history reviewed. Procedure details: Skin prep: chlorhexidine gluconate Skin prep agent completely dried prior to procedure. Insertion site scrubbed for 30 seconds. Sterile barriers: hands washed, cap, mask, prep and drape and sterile gloves used Laterality: right Location: radial artery Catheter type: Arrow Catheter size: 20 G Technique: Technique: Seldinger technique Number of attempts: 1 Ultrasound: Ultrasound image: not saved Post Procedure: Post procedure: dressing applied Complications: none Patient tolerance: patient tolerated the procedure well with no immediate complications Transducer type: regular Name band removed? No us Ariana Monge MD [place] ANESTHESIA Final Res ult * ANES ETT DOUBLE LUMEN - AIRWAY LDA (01/13/2025 9:54 AM EDT) Narrative An Holden MD - 01/13/2025 9:54 AM EDT An Holden MD 01/13/2025 10:23 AM Airway Placement Procedure Note: Patient was not difficult to intubate. Procedure performed by: fellow/resident/INSTRUMENT REPAIR SUPERVISOR and anesthesiologist Anesthesiologist: Ariana Monge MD Fellow/Resident/INSTRUMENT REPAIR SUPERVISOR: An Holden MD Airway procedure initiated at:01/13/2025 9:54 AM and ended at. Personal Protective Equipment: Mask: surgical mask Gloves: gloves Gown: no gown Mask Ventilation: Quality: easy with adjunct Adjunct: oral airway Airway Placement: Technique: video laryngoscopy Rapid sequence induction: no Details: Blade type: Glidescope Blade size: Mac S3 Video view: grade 1 Video Laryngoscopy was: elective Airway manipulation: cricoid pressure Number of attempts: 1 ETT type: cuffed ETT size: 7.0 ETT depth at teeth: 21 Tube position confirmed by: EtCO2 Outcomes: Evidence of dental injury? no Complications observed? no us Ariana Monge MD [place] ANESTHESIA Final Res ult * Type and Screen (ABO,Rh,Antibody Screen) (01/12/2025 10:25 AM EDT) Expiration Date of Sample 02/02/2025 11:59 PM 01/12/2025 11:06 PM EDT [facility] Resulting Agency [facility] ABO Type O 01/12/2025 11:06 PM EDT [facility] Rh Type Positive 01/12/2025 11:06 PM EDT [facility] Antibody Screen Negative 01/12/2025 11:06 PM EDT [facility] 01/12/2025 10:2 5 AM EDT 01/12/2025 10:31 AM EDT us Aroldo Knapp MD BLOOD BANK TEST ORDERABLES Final Result Performing Organization Address City/State/[facility] Co de Phone Number [facility] [address] [place] [id number] * MRI BRAIN WITH AND WITHOUT CONTRAST (12/30/2024 8:23 AM EDT) Anatomical Region Laterality Modality Head Magnetic Resonan ce Other 12/30/2024 10:1 7 AM EDT Impressions 12/30/2024 10:21 AM EDT Increased nodular enhancement in the right parietal lobe as described with increased surrounding FLAIR hyperintensity. Findings could represent any combination of treatment effect or progressive tumor. 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 COMPARISON: Prior brain MRIs, most recently 11/04/24 FINDINGS: Brain Parenchyma: Redemonstrated postoperative findings with decreased size of the resection cavity in the right parietal lobe. In the interval the extent of nodular enhancement has significantly increased now measuring up to 2 x 1.7 cm in maximal axial dimension with increased surrounding FLAIR hyperintensity in the adjacent parenchyma. Abnormal enhancement extends to the some ependymal margin of the right lateral ventricle. No acute infarct or new parenchymal hemorrhage. Unchanged foci of susceptibility within the left frontal lobe and associated with a chronic left winters radiata lacunar infarct. Additional chronic lacunar infarcts along the right external capsule and in the left basal ganglia. No definite increased relative cerebral blood volume is seen on perfusion sequences. Ventricular System and Extra-Axial Spaces: There is no evidence of midline shift or hydrocephalus. Ex vacuo dilatation of the right lateral ventricle atrium and ventricular horn. Extracranial Structures: Expected arterial flow signal is observed at the skull base. Prior right parietal craniotomy. Trace fluid signal in the left mastoid air cells. 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 COMPARISON: Prior brain MRIs, most recently 11/04/24 FINDINGS: Brain Parenchyma: Redemonstrated postoperative findings with decreasedsize of the resection cavity in the right parietal lobe. In the intervalthe extent of nodular enhancement has significantly increased nowmeasuring up to 2 x 1.7 cm in maximal axial dimension with increasedsurrounding FLAIR hyperintensity in the adjacent parenchyma. Abnormalenhancement extends to the some ependymal margin of the right lateralventricle. No acute infarct or new parenchymal hemorrhage. Unchanged foci ofsusceptibility within the left frontal lobe and associated with a chronicleft winters radiata lacunar infarct. Additional chronic lacunar infarctsalong the right external capsule and in the left basal ganglia. No definite increased relative cerebral blood volume is seen on perfusionsequences. Ventricular System and Extra-Axial Spaces: There is no evidence of midlineshift or hydrocephalus. Ex vacuo dilatation of the right lateral ventricleatrium and ventricular horn. Extracranial Structures: Expected arterial flow signal is observed at theskull base. Prior right parietal craniotomy. Trace fluid signal in theleft mastoid air cells. IMPRESSION: Increased nodular enhancement in the right parietal lobe as described withincreased surrounding FLAIR hyperintensity. Findings could represent anycombination of treatment effect or progressive tumor. Meghna Galeano MD, MPH IMG MR HEAD/NECK Carlyn l Result * (ABNORMAL) Comprehensive metabolic panel (12/30/2024 7:06 AM EDT) Only the most recent of2 resultswithin the time period is included. SODIUM 140 136 - 145 mmol/L [facility]# [id number] POTASSIUM 4.0 3.4 - 5.1 mmol/L [facility]# [id number] CHLORIDE 100 98 - 107 mmol/L [facility]# [id number] CO2 24 22 - 31 mmol/L [facility]# [id number] BUN 6 6 - 23 mg/dL [facility]# [id number] CREATININE 0.63 0.50 - 1.20 mg/dL [facility]# [id number] GLUCOSE 162(H) 70 - 100 mg/dL [facility]# [id number] ALBUMIN 4.6 3.5 - 5.2 g/dL [facility]# [id number] TOTAL PROTEIN 7.0 6.4 - 8.3 g/dL [facility]# [id number] CALCIUM 9.3 8.8 - 10.7 mg/dL [facility]# [id number] ALKALINE PHOSPHATASE 78 40 - 129 U/L [facility]# [id number] TOTAL BILIRUBIN 0.5 0.2 - 1.2 mg/dL [facility]# [id number] AST 25 <41 U/L [facility]# [id number] ALT 37 <42 U/L [facility]# [id number] GLOBULIN 2.4 2.3 - 4.2 g/dL [facility]# [id number] EGFR 117 >59 mL/min/1.7 3m2 [facility]# [id number] Comment:Estimated glomerular filtration rate calculated using the CKD-EPI refit equation. ANION GAP 16 7 - 17 mmol/L [facility]# [id number] Blood 12/30/2024 7:06 AM EDT 12/30/2024 7:09 AM EDT us Meghna Galeano MD, MPH LAB BLOOD ORDERABLES Final Result [facility]# [id number] [address] [place] [address] * (ABNORMAL) CBC and differential (12/30/2024 7:06 AM EDT) Only the most recent of2 resultswithin the time period is included. WBC 6.10 4.00 - 10.00 K/uL [facility]# [id number] RBC 4.63 4.50 - 6.40 M/uL [facility]# [id number] HGB 14.0 13.5 - 18.0 g/dL [facility]# [id number] HCT 39.8(L) 40.0 - 54.0 % [facility]# [id number] PLT 258 150 - 450 K/uL [facility]# [id number] MCV 86.0 80.0 - 100.0 fL [facility]# [id number] MCH 30.2 27.0 - 32.0 pg [facility]# [id number] MCHC 35.2 32.0 - 36.0 g/dL [facility]# [id number] RDW 13.2 11.5 - 14.5 % [facility]# [id number] MPV 8.8 8.4 - 12.0 fL [facility]# [id number] NRBC 0.00 0.00 /100 WBCs [facility]# [id number] ABSOLUTE NRBC 0.00 0 K/uL [facility]# [id number] DIFF METHOD Auto [facility]# [id number] NEUTS 57.4 48.0 - 76.0 % [facility]# [id number] LYMPHS 23.1 18.0 - 41.0 % [facility]# [id number] MONOS 10.3 4.0 - 11.0 % [facility]# [id number] EOS 6.6(H) 0.0 - 5.0 % [facility]# [id number] BASOS 1.0 0.00 - 1.50 % [facility]# [id number] % IMMATURE GRANS 1.6(H) 0.00 - 1.00 % [facility]# [id number] ABSOLUTE NEUTS 3.50 1.92 - 7.60 K/uL [facility]# [id number] ABSOLUTE LYMPHS 1.41 0.72 - 4.10 K/uL [facility]# [id number] ABSOLUTE MONOS 0.63 0.16 - 1.10 K/uL [facility]# [id number] ABSOLUTE EOS 0.40 0.00 - 0.50 K/uL [facility]# [id number] ABSOLUTE BASOS 0.06 0.00 - 0.15 K/uL [facility]# [id number] ABS IMMATURE GRANS 0.10 0.00 - 0.10 K/uL [facility]# [id number] Blood 12/30/2024 7:06 AM EDT 12/30/2024 7:09 AM EDT us Meghna Galeano MD, MPH LAB BLOOD ORDERABLES Final Result [facility]# [id number] [address] [place] [address] * MRI BRAIN (TUMOR) WITH AND WITHOUT CONTRAST (11/04/2024 10:49 AM EDT) Anatomical Region Laterality Modality Head Magnetic Resonan ce Other 11/04/2024 2:31 PM EDT Impressions 11/04/2024 2:52 PM EDT 1. Similar to minimally increased enhancement surrounding the right parietal resection cavity may be due to interval partial collapse and/or evolving posttreatment changes. 2. Slightly increased extent of surrounding nonenhancing signal abnormality in the right parietal lobe, which may represent posttreatment changes, although progressive nonenhancing disease is not entirely excluded. ATTESTATION: Isadora Stafford, as teaching physician have reviewed the images, if any, for this patient's exam, and if necessary, have edited the report originally created by Geri Martin. 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 COMPARISON: MRI brain dated 09/02/2024, 07/28/2024, 05/12/2024. FINDINGS: Brain Parenchyma: Redemonstrated postoperative findings with decreased size of the resection cavity in the right parietal lobe, now measuring approximately 1.6 x 1.5 x 2.0 cm, previously 2.0 x 1.8 x 2.3 cm when measured in a similar fashion. Linear and amorphous enhancement along the margins of the resection cavity is slightly more conspicuous along the anterosuperior aspect. No solid nodular enhancement. Surrounding nonenhancing T2 hyperintensity within the adjacent right parietal lobe is slightly increased in extent compared to the previous study, most notable along the lateral aspect. No acute infarct or new parenchymal hemorrhage. Unchanged foci of susceptibility within the left frontal lobe and associated with a chronic left winters radiata lacunar infarct. Additional chronic lacunar infarcts along the right external capsule and in the left basal ganglia. No definite increased relative cerebral blood volume is seen on perfusion sequences. Ventricular System and Extra-Axial Spaces: There is no evidence of midline shift or hydrocephalus. Ex vacuo dilatation of the right lateral ventricle atrium and ventricular horn. Extracranial Structures: Expected arterial flow signal is observed at the skull base. Prior right parietal craniotomy. Trace fluid signal in the right mastoid air cells. 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 COMPARISON: MRI brain dated 09/02/2024, 07/28/2024, 05/12/2024. FINDINGS: Brain Parenchyma: Redemonstrated postoperative findings with decreasedsize of the resection cavity in the right parietal lobe, now measuringapproximately 1.6 x 1.5 x 2.0 cm, previously 2.0 x 1.8 x 2.3 cm whenmeasured in a similar fashion. Linear and amorphous enhancement along themargins of the resection cavity is slightly more conspicuous along theanterosuperior aspect. No solid nodular enhancement. Surroundingnonenhancing T2 hyperintensity within the adjacent right parietal lobe isslightly increased in extent compared to the previous study, most notablealong the lateral aspect. No acute infarct or new parenchymal hemorrhage. Unchanged foci ofsusceptibility within the left frontal lobe and associated with a chronicleft winters radiata lacunar infarct. Additional chronic lacunar infarctsalong the right external capsule and in the left basal ganglia. No definite increased relative cerebral blood volume is seen on perfusionsequences. Ventricular System and Extra-Axial Spaces: There is no evidence of midlineshift or hydrocephalus. Ex vacuo dilatation of the right lateral ventricleatrium and ventricular horn. Extracranial Structures: Expected arterial flow signal is observed at theskull base. Prior right parietal craniotomy. Trace fluid signal in theright mastoid air cells. IMPRESSION: 1. Similar to minimally increased enhancement surrounding the rightparietal resection cavity may be due to interval partial collapse and/orevolving posttreatment changes. 2. Slightly increased extent of surrounding nonenhancing signalabnormality in the right parietal lobe, which may represent posttreatmentchanges, although progressive nonenhancing disease is not entirelyexcluded. ATTESTATION: I, Isadora Steve, as teaching physician have reviewed the images,if any, for this patient's exam, and if necessary, have edited the reportoriginally created by Geri Martin. us Aashish Jackson MD IMG MR HEAD/NECK Final Result from Last 3 Months Insurance O POS [place] [address] [place], [place] [address]O POS EPO [address] [place], [place] [address]O POS EPO [facility] POS EPO Advance Directives For more information, please contact: [phone] (9AM - 5PM [facility], Saturday-Saturday) * Full Code (Latest Code Status on File) Date Activated Date Inactivated Comments 01/13/2025 1:27 PM Question Answer Comments Code Status Confirmed With: Other (specify below ) Care Teams Prepress Specialist Relationship Specialty Start Date End Date Lucio Bhatt MD [facility] [place] [id number] PCP - General Internal Medicine 08/18/24 Self-Referred, Patient 08/18/24 Additional Source Comments The information contained in this document represents components of the legal health record. It is not the complete legal health record.[facility]
--- OUTSIDE RECORDS SUMMARY | 2025-01-28 14:17 | XMS_ITS ---
Author Organization [facility] Address [address] [facility] [address] [place] [address] Phone Care Team Providers Care Tour Sales Representative Name Role Phone Self-Referred, Patient Unavailable Unavailab Lucio Arora MD Primary Care Provider [phone] Active Problems Problem Noted Date Diagnosed Date Brain lesion 01/13/2025 Glioblastoma 11/11/2024 Current Treatment and Therapy Plans TEMOZOLOMIDE 150MG/M2* Plan Start Date:11/18/2024 Plan Provider:Meghna Galeano MD, MPH Linked Problems Glioblastoma Treatment Medications Current Day (Day 1 , Cycle 2 - Planned for 12/16/2024) Next Day (Day 1, Cycle 3 - Planned for 01/13/2025) temozolomide (TEMODAR) temozolomide (TEM ODAR) 5 MG capsule temozolomide (TEMODAR) 5 MG capsule Past Treatment and Therapy Plans No past plan information found.
--- OUTSIDE RECORDS SUMMARY | 2025-01-28 14:17 | XMS_ITS | Encounter Summary ---
Author Organization [facility] Address [address] [facility] [address] [place] [phone] Phone Care Team Providers Care Manufacturing Project Engineer Name Role Phone Self-Referred, Patient Unavailable Unavailab Lucio Arora MD Primary Care Provider [phone] Encounter Details Date Type Department Care Team (Late st Contact Info) Description 01/26/2025 Orders Only [facility], [facility] [place] [address] [place] [address], 9th [place] [address] Zara Rooney, NILESH [address] [place] [id number] [email or web address] Social History Tobacco Use Types Packs/Day Years Used Date Smoking Tobacco: Former Cigarettes Smokeless Tobacco: Never Comments:Quit 2016 Uses nicotine gum Alcohol Use Standard Drinks/Week [...] high school, GED, job training, learning the Latvian language, technical skills, or developing parenting skills)? [...] PM EDT documented as of this encounter Plan of Treatment Upcoming Encounters Date Type Department Care Team (Late st Contact Info) Description 02/01/2025 2:00 PM EDT Telemedicine [facility], [facility] [place] [address] [facility], 9th [place] [address] Meghna Galeano MD, MPH [address] [place] [address] [email or web address] documented as of this encounter Visit Diagnoses Not on filedocumented in this encounter Care Teams Manufacturing Project Engineer Relationship Specialty Start Date End Date Lucio Bhatt MD [address] [place] [address] PCP - General Internal Medicine 08/18/24 Self-Referred, Patient 08/18/24 documented as of this encounter Additional Source Comments The information contained in this document represents components of the legal health record. It is not the complete legal health record.[facility]
--- OUTSIDE RECORDS SUMMARY | 2025-01-28 14:17 | XMS_ITS | Encounter Summary ---
Author Organization [facility] Address [address] [place] [address] Phone Care Team Providers Care Automotive Mechanic Name Role Phone Self-Referred, Patient Unavailable Unavailab Lucio Arora MD Primary Care Provider [phone] [phone] Encounter Details Date Type Department Care Team (Late st Contact Info) Description 09/02/2024 Procedure Pass [facility] Imaging Department, [facility] [place], MRI [address] [address] Social History Tobacco Use Types Packs/Day Years Used Date Smoking Tobacco: Never Assessed Child or Family Care Answer Date Record ed Do you have problems with on e of the following making it difficult for you to work, study, or receive health care? No 08/22/2024 Education Answer Date Recorded Are you interested in help w ith more adult education (for example, completing high school, GED, job training, learning the Barb[place] language, technical skills, or developing parenting skills)? No 08/22/2024 Are you concerned about learning? Not on file 08/22/2024 No 08/22/2024 Yes 08/22/2024 Food Answer Date Recorded Within the past 6 months we worried whether our food would run out before we got money to buy more. Never True 08/22/2024 Within the past 6 months the food we bought just didn't last and we didn't have enough money to get more. Never True Residential Stability Answer Date Recor ded What is your housing situation today? I have vesta sing 08/22/2024 How many times have you move d in the past 12 months? Zero (I did not move) 08/22/2024 Paying for Meds Answer Date Recorded Do you have trouble paying for medicines? No 08/22/2024 Paying Utility Bills Answer Date Record ed Do you have trouble paying your heating or elect ricity bill? No 08/22/2024 Transportation Answer Date Recorded Has the lack of transportati on kept you from medical appointments or from getting medications? No 08/22/2024 Digital Access Answer Date Recorded No 08/20/2024 No 08/20/2024 Reliable internet access at home? Not on file 08/20/2024 Device with a working camera? Not on file Sex and Gender Information Value Date Recorded [...] 2:00 PM EDT Telemedicine [facility], [facility] [place] [address] [facility], 9th [place] [address] Meghna Galeano MD, MPH [address] [place] [address] [email or web address] documented as of this encounter Visit Diagnoses Not on filedocumented in this encounter Care Teams Automotive Mechanic Relationship Specialty Start Date End Date Lucio Bhatt MD [facility] [place] [address] PCP - General Internal Medicine 08/18/24 Self-Referred, Patient 08/18/24 documented as of this encounter Additional Source Comments The information contained in this document represents components of the legal health record. It is not the complete legal health record.[facility]
--- OUTSIDE RECORDS SUMMARY | 2025-01-28 14:17 | XMS_ITS | Encounter Summary ---
Author Organization [facility] Address [address] [place] [address] Phone Care Team Providers Care Dictating Transcribing Machine Servicer Name Role Phone Self-Referred, Patient Unavailable Unavailab Lucio Arora MD Primary Care Provider [phone] Encounter Details Date Type Department Care Team (Late st Contact Info) Description 11/11/2024 Procedure Pass [facility], MRI [address] [facility] 4th [place] [address] Social History Tobacco Use Types Packs/Day Years [...] high school, GED, job training, learning the German language, technical skills, or developing parenting skills)? [...] EDT Telemedicine [facility], [facility] [place] [address] [facility], 9th [place] [address] Meghna Galeano MD, MPH [address] [place] [address] [email or web address] documented as of this encounter Visit Diagnoses Not on filedocumented in this encounter Care Teams Dictating Transcribing Machine Servicer Relationship Specialty Start Date End Date Lucio Bhatt MD [facility] [place] [address] PCP - General Internal Medicine 08/18/24 Self-Referred, Patient 08/18/24 documented as of this encounter Additional Source Comments The information contained in this document represents components of the legal health record. It is not the complete legal health record.[facility]
--- OUTSIDE RECORDS SUMMARY | 2025-01-28 14:17 | XMS_ITS | Encounter Summary ---
Author Organization [facility] Address [address] [place] [address] Phone Care Team Providers Care Ict Project Manager Name Role Phone Self-Referred, Patient Unavailable Unavailab Lucio Arora MD Primary Care Provider [phone] Encounter Details Date Type Department Care Team (Late st Contact Info) Description 09/02/2024 Procedure Pass [facility] MR Imaging, [place] [address] [place] [address] Social History Tobacco Use Types Packs/Day Years [...] high school, GED, job training, learning the Kinyarwanda language, technical skills, or developing parenting skills)? [...] 2:00 PM EDT Telemedicine [facility], [facility] [place] [address] [facility], 9th [place] [address] Meghna Galeano MD, MPH [address] [place] [phone] [email or web address] documented as of this encounter Visit Diagnoses Not on filedocumented in this encounter Care Teams Ict Project Manager Relationship Specialty Start Date End Date Lucio Bhatt MD [address] [place] [address] PCP - General Internal Medicine 08/18/24 Self-Referred, Patient 08/18/24 documented as of this encounter Additional Source Comments The information contained in this document represents components of the legal health record. It is not the complete legal health record.[facility]
--- OUTSIDE RECORDS SUMMARY | 2025-01-28 14:17 | XMS_ITS | Encounter Summary ---
Author Organization [facility] Address [address] [place] [address] Phone Care Team Providers Care Vending Machine Coin Collector Name Role Phone Self-Referred, Patient Unavailable Unavailab Lucio Arora MD Primary Care Provider [phone] Encounter Details Date Type Department Care Team (Late st Contact Info) Description 01/13/2025 Procedure Pass [facility] [address] [place] [address] Social History Tobacco Use Types Packs/Day Years [...] high school, GED, job training, learning the Hebrew language, technical skills, or developing parenting skills)? [...] have you moved in the past 12 mon ths? One time 01/13/2025 Paying for Meds [...] 01/14/2025 4:00 AM Bev Parra RN * [place] Suicide Severity Rating Scale (Screener/Recent Self-Report) Question Answer Date of Assessment Author 1. Wish to be (Past 1 Month) No 025 4:00 AM Bev Parra RN 2. Non-Specific Active Suici wilder Thoughts (Past 1 Month) No 01/14/2025 4:00 AM EDT Sergey Harrell, RN 6. Suicidal Behavior (Lifetime) No 4:00 AM EDT Bev Harrell, RN documented as of this encounter Plan of Treatment Upcoming Encounters Date Type Department Care Team (Late st Contact Info) Description 02/01/2025 2:00 PM EDT Telemedicine Center for Neuro[facility]Oncology, [facility] [place] [address] [facility], 9th [place] [address] Meghna Galeano MD, MPH [address] [place] [address] [email or web address] .[facility] documented as of this encounter Visit Diagnoses Not on filedocumented in this encounter Care Teams Vending Machine Coin Collector Relationship Specialty Start Date End Date Lucio Bhatt MD [address] [facility] [place] [id number] PCP - General Internal Medicine 08/18/24 Self-Referred, Patient 08/18/24 documented as of this encounter Additional Source Comments The information contained in this document represents components of the legal health record. It is not the complete legal health record.[facility]
== END 2025-01-28 14:04 | disposition home or self-care (01) ==
LOC: HO.HMCSH 13:02
PROVIDERS: PCP Physician Assistant Medical; Visit Provider Physician Assistant Medical
DX: C71.9 Malignant neoplasm of brain, unspecified (principal); F41.9 Anxiety disorder, unspecified; I10 Essential (primary) hypertension; M75.00 Adhesive capsulitis of unspecified shoulder; M25.512 Pain in left shoulder; E11.9 Type 2 diabetes mellitus without complications; D22.9 Melanocytic nevi, unspecified

== ENCOUNTER 2025-01-28 13:02 | Outpatient (REF) | payer OTHER, SELFPAY ==
--- NOTE | ~2025-01-28 | XR_ITS ---
EXAMINATION: XR SHOULDER, LEFT CLINICAL INFORMATION: M75.00 - Adhesive capsulitis of unspecified shoulder COMPARISON: None available. TECHNIQUE: AP external rotation, Grashey, scapular Y, and axillary views of the left shoulder. FINDINGS: The bones and soft tissues are normal. No fracture. Glenohumeral and acromioclavicular alignment is anatomic with normal joint space. No abnormal soft tissue calcifications. XR/XR shoulder LT min 2V IMPRESSION: Unremarkable left shoulder Electronically signed by: Ronald Esquivel MD 01/28/2025 04:53 PM EDT
[2025-01-28 18:26] LABS: Cannabinoid Screen Urine Not Detected (Not Detect)
== END 2025-01-28 13:03 | disposition home or self-care (01) ==
LOC: HO.XRAY 13:02
PROVIDERS: PCP Physician Assistant Medical; Visit Provider Physician Assistant Medical
DX: C71.9 Malignant neoplasm of brain, unspecified (principal); F41.9 Anxiety disorder, unspecified; I10 Essential (primary) hypertension; M75.00 Adhesive capsulitis of unspecified shoulder; M25.512 Pain in left shoulder; E11.9 Type 2 diabetes mellitus without complications; D22.9 Melanocytic nevi, unspecified; Z79.899 Other long term (current) drug therapy; Z80.8 Family history of malignant neoplasm of other organs or systems; Z13.31 Encounter for screening for depression; Z13.39 Encounter for screening examination for other mental health and behavioral disorders
CPT/HCPCS: 73030; 80307; 96127

== ENCOUNTER → 2025-01-28 16:25 | Outpatient (BNV) | payer OTHER, SELFPAY | PROVIDERS: PCP Physician Assistant Medical; Visit Provider Radiology Diagnostic Radiology | DX: M25.512 Pain in left shoulder (principal) | CPT/HCPCS: 73030 ==

== ENCOUNTER 2025-03-01 14:28 | Outpatient (AMB) | payer OTHER, SELFPAY ==
--- OUTSIDE RECORDS SUMMARY | 2014-03-26 06:08 | XMS_ITS | Continuity of Care Document ---
Author Organization [facility] Address [address] [place] [address] Care Team Providers Care Advertising Account Representative Name Role Phone Gabrielle BENITEZ, Shantal Unavailable [...] BODY MASS INDEX DOCD Glucose Bld Monitr Oiwxvxp-Rzy-Geui Use Preven Meds E&M Estab Pt; 18-39 [...] Diagnoses Date Provider Providers Copied on Encounter [facility] , [address], [place], [place], [id number], [address]. [place] [address] LMO No Information 4 Gabrielle Murguia. [address] , [address], [place], [address], [place]. tel:[phone] Offic/Outpt E&M Estab LowMod [facility] , [address], [place], [place], [id number], [facility] [place]. [place] [address] LMO Follow up on lab test(s) (chief complaint) DiabetesEssenti al hypertensionHyp erlipidemiaTran saminitis Sep-3 0- 4 Gabrielle Murguia. [address], [address], [place], [address], [place]. tel:[phone] Offic/Outpt E&M Estab LowMod [facility] , [address], [place], [place], [id number], [facility] [address] LMO Discuss blood test results (chief complaint) Essential hypertensionHig h blood sugarTransamini tisBody Mass Index 35.0-35.9, adult Sep-2 -201 4 Gabrielle Murguia. [address] , [address], [place], [address], [place]. tel:[phone] Preven Meds E&M Estab Pt; 18-[address] [facility] , [address], [place], [id number], [facility] L[facility] physical (chief complaint) Hypertensi on (chief complaint) Anxiety (chief complaint) Allergic rhinitis, cause unspecifiedRout ine Medical ExamHypertensio n, BenignRoutine Medical ExamAnxietyAnxi etyRoutine Medical ExamOther specified examinationBody Mass Index 36.0-36.9, adult 4 No Information Offic/Outpt E&M New Mod Sever 30Min [facility] , [address], [place], [place], [id number], [place] [address]. [place] [address] LMO No Information 2 Holly Tineo. [address] [facility], [address], [place], [place], [address], [place]. tel:[phone] Family History Family Member Type Diagnosis Age At Onset Aunt Problem (finding) Cancer - tongue Uncle Problem (finding) [place] Payers Payer name Insurance type Covered constitution party ID Authoriza tion(s) [employer] BL [id number] Social History Type Description Quantity Date Captured Comments Sex Male Smoking Status No Information Chief Complaint And Reason For Visit No Information Reason For Referral Reason For Referral No Information Plan Of Treatment Date Type Action Status Future Order: Lab Order BASIC ME TABOLIC PANEL ([id number]), Sent on: Sent Future Order: Lab Order HEPATIC FUNCTION PANEL ([id number]), Sent on: Sent Future Order: Lab Order HEMOGLOBIN A1c (4 96), Sent on: Sent Future Order: Lab Order HEPATITI S PANEL, ACUTE W/REFLEX ([id number]), Sent on: Sent History Of Present Illness Encounter Date Complaint History Of Prese nt Illness Follow up on lab test(s) atient is here to follow-up, repeat blood work showed slightly high A normal hepatitis panel, hemoglobin A1c was 7.8 and blood sugar unfortunately he is losing his insurance today's the last day and hs [facility], denies any new complaintshe has been cutting [...] any cardiopulmonary complaints he will see an bean weigher for routine eye exam physical Anxiety The patient does not present with thoughts of or suicide. The patient denies any nausea and vomiting. Additional information: Mild. Pt declines med or referral. Anxiety (comments) physical (comments) Hypertension (comments) Hypertension Pt ascribes to w boom coat HTN. Pt asx. Functional Status Date Functional Assessmen t No [...] plasty of insurance and [facility] metformin is started, 500 mg [...]
--- OUTSIDE RECORDS SUMMARY | 2025-02-24 08:15 | XMS_ITS | Encounter Summary ---
Author Organization [facility] Address [address] [place] [address] Phone Care Team Providers Care Councillor Aboriginal Land [employer] Name Role Phone Self-Referred, Patient Unavailable Unavailab Meghna Dalton MD, MPH Unavailable [phone] Swapna Douglas Primary Care Provider [phone] Sabi Oconnell RN Unavailable Vicki @[email or web address] Reason for Referral * MRI/CAT Scan - Closed Specialty Diagnoses / Procedures Referred By Shahrzad xie Referred To Contact Radiology Diagnoses Glioblastoma Procedures MRI Brain CHG MRI BRAIN Meghna Sutton MD, MPH Phone: tel: fax: mailto:[email or web address] Referral ID Status Reason Start Date Expiration Date Visits Re quested Visits Authorized [id number] Closed 02/02/2025 08/02/2025 1 1 Reason for Visit * MRI/CAT Scan - Closed Specialty Diagnoses / Procedures Referred By Shahrzad xie Referred To Contact Radiology Diagnoses Glioblastoma Procedures MRI Brain CHG MRI BRAIN COMBMeghna Kim MD, MPH Phone: tel: fax: mailto:[email or web address] Referral ID Status Reason Start Date Expiration Date Visits Re quested Visits Authorized [id number] Closed 02/02/2025 08/02/2025 1 1 Encounter Details Date Type Department Care Team (Latest Contact Info) Description 02/24/2025 8:15 AM EDT - 02/24/2025 11:59 PM EDT Hospital Encounter [facility] MR Imaging, [place] [address] [place] [address] Meghna Galeano MD, MPH [address] [place] [address] Luis @[facility] U Discharge Disposition: Home or Self Care Social History Tobacco Use Types Packs/Day Years [...] high school, GED, job training, learning the Turkish language, technical skills, or developing parenting skills)? [...] PM EDT documented as of this encounter Medications at Time of Discharge acetaminophen (TYLENOL) 325 mg tablet Take 1,000 mg by mouth daily as needed. 4 ALPRAZolam (XANAX) 0.5 MG tabletIndications :anxiety Take 0.5-1 mg by mouth daily as needed. Indications: anxious 5 amLODIPine (NORVASC) 5 MG tablet Take 5 mg by mouth daily. aspirin/sod bicarb/citric acid (OBDULIA-SELTZER ORAL) Take by mouth daily as needed. FREESTYLE 28 gauge lancets HYDROcodone-aceta minophen (NORCO) 5-325 mg per tablet Take 1 tablet by mouth every 6 (six) hours as needed for pain (specific location in comments). Partial fill ok 15 tablet 5 levETIRAcetam (KEPPRA) 750 MG IMMEDIATE release tablet Take 1 tablet (750 mg total) by mouth 2 (two) times a day. 180 tablet 5 losartan (COZAAR) 50 MG tablet Take 50 mg by mouth 2 (two) times a day. metFORMIN (GLUCOPHAGE) 500 MG tablet Take 500 mg by mouth 4 (four) times a day. multivit-minerals /folic acid (MULTIVITAMIN GUMMIES ORAL) Take by mouth daily. nicotine polacrilex (COMMIT) [address] 2 mg inside cheek as needed for smoking cessation. OZEMPIC 2 mg/dose (8 mg/3 mL) subcutaneous injection pen inject 2 mg subcutaneously every 7 days polyethylene glycol (MIRALAX) 17 gram packet Take 17 g by mouth daily as needed for other (free text field) (severe constipation). 5 rosuvastatin (CRESTOR) 5 MG tablet Take 5 mg by mouth daily. documented as of this encounter Plan of Treatment Upcoming Encounters Date Type Department Care Team (Late st Contact Info) Description 02/22/2025 Procedure Pass [facility] [employer] [place] [address] [place] [address] 03/04/2025 6:30 AM EDT Blood Draw Laboratory Services, [address], [address]nd [place] [address] Meghna Galeano MD, MPH [address] [place] [phone] Luis@[email or web address] 03/04/2025 7:30 AM EDT Office Visit [facility] [place], [facility] [address], 6th [place] [address] Gil Kiran PA-C [address] [place] [address] [email or web address] 03/04/2025 7:30 AM EDT Nurse Only [facility] [place], [address], [address] [place] [phone] Meghna Galeano MD, MPH [address] [place] [phone] Luis@[facility] 03/04/2025 8:30 AM EDT [facility] [address], [address] [place] [address] Meghna Galeano MD, MPH [address] [place] [phone] Luis@[facility] Elvia Humphrey RN [address] [place] [phone] ELEANOR@[facility] 03/05/2025 9:00 AM EDT Nurse Only [facility] [place], [address], [address] [place] [address] Meghna Galeano MD, MPH [address] [place] [phone] Luis@[facility] Aaron Sherwood, CHIVO [address] [place] [phone] [email or web address] 03/05/2025 9:00 AM EDT Infusion Infusion Therapy [facility] [place] [address], [address], [address] [place] [address] Meghna Galeano MD, MPH [address] [place] [phone] Luis@[facility] Daniela Freire RN [address] [place] [address] Juanito@[email or web address] 03/09/2025 8:30 AM EDT Nurse Only [facility] [place], [address] [address] Meghna Galeano MD, MPH [address] [place] [phone] Luis@[facility] 03/09/2025 8:30 AM EDT Infusion [facility] [address] [address] Meghna Galeano MD, MPH [address] [place] [phone] Luis@[facility] Keira Downey RN [address] [place] [phone] [email or web address] 03/11/2025 6:50 AM EDT Blood Draw [facility], [address], [address] [place] [address] Meghna Galeano MD, MPH [address] [place] [phone] Luis@[facility] 03/11/2025 7:30 AM EDT Office Visit [facility] [place], [address], [address] [place] [phone] Gil Kiran PA-C [address] [place] [phone] Nadine@[facility] 03/11/2025 7:30 AM EDT Nurse Only [facility] [place], [address], [address] [place] [address] Meghna Galeano MD, MPH [address] [place] [phone] Luis@[facility] 03/11/2025 8:30 AM EDT Infusion [facility] [address], [address] [place] [address] Meghna Galeano MD, MPH [address] [place] [phone] Luis@[facility] Sabi Oconnell RN [address] [place] [address] Vicki@[email or web address] 03/18/2025 7:50 AM EDT [facility], [address], [address] [place] [address] Meghna Galeano MD, MPH [address] [place] [phone] Luis@[facility] 03/18/2025 8:30 AM EDT Office Visit [facility] [place], [address], [address] [place] [phone] Gil Kiran PA-C [address] [place] [phone] Nadine@[facility] 03/18/2025 8:30 AM EDT Nurse Only [facility] [place], [facility] [address] [facility], [address] [place] [address] Meghna Galeano MD, MPH [address] [place] [phone] Luis@[facility] 03/18/2025 9:30 AM EDT Infusion Infusion Therapy Services [place] [address], [address], [address] [place] [address] Meghna Galeano MD, MPH [address] [place] [phone] Luis@[facility] Rosa Araujo RN [address] [place] [phone] Luis@[facility] 03/25/2025 6:30 AM EDT Blood [facility], [address], [address] [place] [address] Meghna Galeano MD, MPH [address] [place] [phone] Luis@[facility] 03/25/2025 7:30 AM EDT Office Visit [facility] [place], [address], [address] [place] [address] Gil Kiran PA-C [address] [place] [phone] Nadine@[facility] 03/25/2025 7:30 AM EDT Nurse Only [facility] [place], [address], [address] [place] [address] Meghna Galeano MD, MPH [address] [place] [phone] Luis@[facility] 03/25/2025 8:30 AM EDT Infusion [facility] [address], [address] [place] [address] Meghna Galeano MD, MPH [address] [place] [phone] Luis@[facility] Giselle Morgan RN [address] [place] [phone] CHOLO@ [facility] 04/01/2025 7:50 AM EST Blood [facility], [address], [address] [place] [address] Meghna Galeano MD, MPH [address] [place] [phone] Luis@[facility] 04/01/2025 8:30 AM EST Office Visit [facility] [place], [address], [address] [place] [phone] Gil Kiran PA-C [address] [place] [phone] Nadine@[facility] 04/01/2025 8:30 AM EST Nurse Only [facility] [place], [address], [address] [place] [address] Meghna Galeano MD, MPH [address] [place] [phone] Luis@[facility] 04/01/2025 9:30 AM EST Infusion Infusion Therapy Services [place] , [facility] [address] [facility], [address] [place] [address] Meghna Galeano MD, MPH [address] [place] [phone] Luis@[facility] Juanita Perez RN [address] [place] [address] Gallo@[email or web address] 04/08/2025 6:30 AM EST Blood [facility], [address], [address] [place], [place] Meghna Galeano MD, MPH [address] [place] [phone] Luis@[facility] 04/08/2025 7:30 AM EST Office Visit [facility] [place], [address], [address] [place] [address] Lucio Thorne N.P., STERILE PROCESSING MANAGER [address] [place] [address] [place] [address] Alecia@[email or web address] 04/08/2025 7:30 AM EST Nurse Only [facility] [place], [address], [address] [place] [address] Meghna Galeano MD, MPH [address] [place] [phone] Luis@[facility] 04/08/2025 8:30 AM EST Infusion [facility], [facility] [place] [address] [place] [address], [address]th [place] [address] Meghna Galeano MD, MPH [address] [place] [phone] Luis@[facility] Rani Garzon, RN [address] [place] [phone] maria de 04/13/2025 3:20 PM EST Appointment [facility] [address] [address] Meghna Galeano MD, MPH [address] [place] [phone] Luis@[email or web address] 04/19/2025 10:00 AM EST Telemedicine [facility] Department of Neurosurgery [address] [place] [address] Francesca Mcmahon PA-C [address] [place] [address] [email or web address] documented as of this encounter Procedures Procedure Name Priority Date/Time Associated Diagnosis Comments MRI BRAIN (TUMOR) WITH AND WITHOUT CONTRAST Routine 02/24/2025 8:56 AM EDT Glioblastoma documented in this encounter Results * MRI BRAIN (TUMOR) WITH AND WITHOUT CONTRAST (02/24/2025 8:56 AM EDT) MGB IMG UNDERLAY STITCHER COMMENT No solid enhancing foci at the anterior border of the postop cavity worrisome for recurrent disease. [facility] Anatomical Region Laterality Modality Head Magnetic Resonan ce 02/24/2025 9:41 AM EDT Impressions 02/24/2025 9:51 AM EDT Solid enhancing foci at the superior and inferior anterior border of the postop cavity with associated elevated CBV worrisome for recurrent disease. Slight increase in extra-axial collection on the right. A clinically significant result was initiated on 02/24/2025 9:51 AM, Message ID [id number]. 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 COMPARISON: 01/14/2025 FINDINGS: Status post right parietal craniotomy postop changes postop cavity and surrounding gliosis. Old left winters radiata ischemic changes stable. Interval slight increase in extra-axial fluid collection best proteinaceous. Bilateral old basal ganglia and left thalamic lacune noted. No acute hemorrhage seen with again components of DWI signal abnormality surrounding the postop cavity. After contrast there is a new focal solid enhancing foci at the superior anterior and inferior anterior margin of the postop cavity although the associated FLAIR T2 signal was present on prior exam. This is worrisome for recurrent disease. This is associated with mildly elevated CBV on perfusion study. 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 COMPARISON: 01/14/2025 FINDINGS: Status post right parietal craniotomy postop changes postop cavity andsurrounding gliosis. Old left winters radiata ischemic changes stable.Interval slight increase in extra-axial fluid collection bestproteinaceous. Bilateral old basal ganglia and left thalamic lacune noted.No acute hemorrhage seen with again components of DWI signal abnormalitysurrounding the postop cavity. After contrast there is a new focal solid enhancing foci at the superioranterior and inferior anterior margin of the postop cavity although theassociated FLAIR T2 signal was present on prior exam. This is worrisomefor recurrent disease. This is associated with mildly elevated CBV onperfusion study. IMPRESSION: Solid enhancing foci at the superior and inferior anterior border of thepostop cavity with associated elevated CBV worrisome for recurrentdisease. Slight increase in extra-axial collection on the right. A clinically significant result was initiated on 02/24/2025 9:51 AM,Message ID [id number]. Meghna Galeano MD, MPH IMG MR HEAD/NECK Carlyn l Result documented in this encounter Visit Diagnoses Diagnosis Glioblastoma Malignant neoplasm of brain, unspecified site documented in this encounter Administered Medications Inactive Administered Medications - up to 3 most recent administrations Medication Order MAR Action Action Date Dose Rate Site gadobutrol (GADAVIST) 1 mmol/mL injection 10 mL 10 mL, Intravenous, Once as needed, pre procedure/treatment, Starting on Sat02/24/25 at 0839, For 1 dose, Procedural Contrast/Med Active Now Given 02/24/2025 8:39 AM EDT 10 mL documented in this encounter Care Teams Councillor Aboriginal Land [employer] Relationship Specialty Start Date End Date Swapna Douglas PA [address] [place] [address] PCP - General Physician Detonator Maker 02/01/25 Self-Referred, Patient 08/18/24 Meghna Galeano MD, MPH [address] [place] [phone] [email or web address] Neurology 02/01/25 Sabi Oconnell, RN [address] [place] [phone] [email or web address] Primary Infusion Nurse 02/24/25 documented as of this encounter Additional Source Comments The information contained in this document represents components of the legal health record. It is not the complete legal health record.[facility]
--- OUTSIDE RECORDS SUMMARY | 2025-02-24 11:00 | XMS_ITS | Encounter Summary ---
Author Organization [facility] Address [address] [place] [address] Phone Care Team Providers Care Lamps Tester And Inspector Name Role Phone Self-Referred, Patient Unavailable Unavailab Meghna Dalton MD, MPH Unavailable [phone] Swapna Douglas Primary Care Provider [phone] Sabi Oconnell RN Unavailable [email or web address] Encounter Details Date Type Department Care Team (Late st Contact Info) Description 02/24/2025 11:00 AM EDT Nurse Only Electrocardiogram, [facility] [address] [place] [address] Meghna Galeano MD, MPH [address] [place] [address] [email or web address]@[email or web address] Glioblastoma Social History Tobacco Use Types Packs/Day Years [...] high school, GED, job training, learning the [place] language, technical skills, or developing parenting skills)? [...] PM EDT documented as of this encounter Last Filed Vital Signs Vital Sign Reading Time Taken Comments Blood Pressure 116/58 02/24/2025 10:48 AM EDT Pulse 107 02/24/2025 10:48 AM EDT Temperature 36.8 C (98.2 F) 02/24/2025 10:48 AM EDT Respiratory Rate 18 02/24/2025 10:48 AM EDT Oxygen Saturation 99% 02/24/2025 10:48 AM EDT Inhaled Oxygen Concentration - - Weight 105.8 kg (233 lb 4 oz) 02/24/2025 10:48 A M EDT Height - - Body Mass Index 36.53 02/24/2025 8:27 AM EDT documented in this encounter Plan of Treatment Upcoming Encounters Date Type Department Care Team (Late st Contact Info) Description 02/22/2025 Procedure Pass [facility] Candles Pourer [place] [address] [place] [address] 03/04/2025 6:30 AM EDT Blood Draw Laboratory Services, [address] [place] [address] Meghna Galeano MD, MPH [address] [place] [phone] Luis@[facility] 03/04/2025 7:30 AM EDT Office Visit [facility], [address] [place] [address] Gil Kiran PA-C [address] [place] [phone] [email or web address]. [facility] 03/04/2025 7:30 AM EDT Nurse Only [facility], [address] [place] [address] Meghna Galeano MD, MPH [address] [place] [phone] Luis@[facility] 03/04/2025 8:30 AM EDT Infusion Infusion [facility], [address], [address] [place] [address] Meghna Galeano MD, MPH [address] [place] [phone] Luis@[facility] Elvia Humphrey RN [address] [place] [address] [email or web address] 03/05/2025 9:00 AM EDT Nurse Only [facility], [address], [address] [place] [address] Meghna Galeano MD, MPH [address] [place] [phone] Luis@[facility] Aaron Sherwood RN [address] [place] [address] [email or web address] 03/05/2025 9:00 AM EDT Infusion Infusion Therapy [facility] [place] [address], [address], [address] [place] [address] Meghna Galeano MD, MPH [address] [place] [phone] Luis@[facility] Daniela Freire RN [address] [place] [address] [email or web address]@[facility] 03/09/2025 8:30 AM EDT Nurse Only [facility], [address], [address] [place] [address] Meghna Galeano MD, MPH [address] [place] [phone] Luis@[facility] 03/09/2025 8:30 AM EDT Infusion Infusion Therapy Services [place] [address], [address] [place] [address] Meghna Galeano MD, MPH [address] [place] [phone] Luis@[facility] Keira Downey RN [address] [place] [phone] [email or web address] 03/11/2025 6:50 AM EDT Blood Draw Laboratory Services, [address], [address] [place] [address] Meghna Galeano MD, MPH [address] [place] [phone] Luis@[facility] 03/11/2025 7:30 AM EDT Office Visit [facility], [address] [place] [address] Gil Kiran PA-C [address] [place] [phone] Nadine@[facility] 03/11/2025 7:30 AM EDT Nurse Only [facility], [address], [address] [place] [address] Meghna Galeano MD, MPH [address] [place] [phone] Luis@[facility] 03/11/2025 8:30 AM EDT Infusion Infusion Therapy Services [address], [address] [place] [address] Meghna Galeano MD, MPH [address] [place] [phone] Luis@[facility] Sabi Oconnell RN [address] [place] [phone] Vicki@[facility] 03/18/2025 7:50 AM EDT Blood Draw Laboratory Services, [address], [address] [place] [address] Meghna Galeano MD, MPH [address] [place] [phone] Luis@[facility] 03/18/2025 8:30 AM EDT Office Visit [facility], [address], [address] [place] [address] Gil Kiarn PA-C [address] [place] [address] Nadine@[facility] 03/18/2025 8:30 AM EDT Nurse Only [facility], [address], [address] [place] [address] Meghna Galeano MD, MPH [address] [place] [phone] Luis@[facility] 03/18/2025 9:30 AM EDT Infusion Infusion Therapy Services [facility], [address], [address] [place] [address] Meghna Galeano MD, MPH [address] [place] [phone] Luis@[facility] Rosa Araujo RN [address] [place] [address] Luis@[facility] 03/25/2025 6:30 AM EDT Blood Draw Laboratory Services, [address], [address] [place] [address] Meghna Galeano MD, MPH [address] [place] [phone] Luis@[facility] 03/25/2025 7:30 AM EDT Office [facility], [address], [address] [place] [address] Gil Kiran PA-C [address] [place] [phone] Nadine@[facility] 03/25/2025 7:30 AM EDT Nurse Only [facility], [address], [address] [place] [address] Meghna Galeano MD, MPH [address] [place] [phone] Luis@[facility] 03/25/2025 8:30 AM EDT Infusion Infusion Therapy Services [place] [address], [address], [address] [place] [address] Meghna Galeano MD, MPH [address] [place] [phone] Luis@[facility] Giselle Morgan, CHIVO [address] [place] [phone] CHOLO@ [facility] 04/01/2025 7:50 AM EST Blood [facility], [address], [address] [place] [address] Meghna Galeano MD, MPH [address] [place] [phone] Luis@[facility] 04/01/2025 8:30 AM EST Office [facility], [address], [address] [place] [address] Gil Kiran PA-C [address] [place] [phone] Nadine@[facility] 04/01/2025 8:30 AM EST Nurse Only [facility], [address], [address] [place] [address] Meghna Galeano MD, MPH [address] [place] [phone] Luis@[facility] 04/01/2025 9:30 AM EST Infusion Infusion Therapy Services [place] [address], [facility] [address] [facility], [address] [place] [address] Meghna Galeano MD, MPH [address] [place] [phone] Luis@[facility] Juanita Perez RN [address] [place] [address] [email or web address] 04/08/2025 6:30 AM EST Blood Draw [facility] Services, [address] [place], [place] Meghna Galeano MD, MPH [address] [place] [phone] Luis@[facility] 04/08/2025 7:30 AM EST Office [facility], [address] [place] [address] Lucio Thorne N.P., SPECIAL OFFICER [address] [place] [address] [place] [address] [email or web address] 04/08/2025 7:30 AM EST Nurse Only [facility], [address] [place] [address] Meghna Galeano MD, MPH [address] [place] [phone] Luis@[facility] 04/08/2025 8:30 AM EST Infusion Infusion Therapy Services [place] [address], [address], [address] [place] [address] Meghna Galeano MD, MPH [address] [place] [address] Luis@[facility] Rani Garzon, RN [address] [place] [address] [email or web address] 04/13/2025 3:20 PM EST Appointment [facility] [place] [address] [place] [address] Meghna Galeano MD, MPH [address] [place] [address] Luis@[facility] 04/19/2025 10:00 AM EST Telemedicine [facility] Department of Neurosurgery [address] [place] [address] Francesca Mcmahon PA-C [address] [place] [address] [email or web address] documented as of this encounter Procedures Procedure Name Priority Date/Time Associated Diagnosis Comments ECG 12-LEAD Routine 02/24/2025 11:08 AM EDT Glioblastoma documented in this encounter Results * ECG 12-LEAD (02/24/2025 11:08 AM EDT) Ventricular Rate EKG/MIN 107 BPM [facility] Atrial Rate 107 BPM [facility] NM Interval 162 ms [facility] QRS Duration 78 ms [facility] QT Interval 328 ms [facility] QTC Interval 437 ms [facility] P [place] 44 degrees [facility] R Wave [place] 12 degrees [facility] T Wave [place] 32 degrees [facility] Other 02/24/2025 11:0 8 AM EDT Narrative [facility] - 02/25/2025 10:07 PM EDT Sinus tachycardia Otherwise normal ECG No previous ECGs available Meghna Galeano MD, MPH ECG ORDERABLES Final Result [facility] documented in this encounter Visit Diagnoses Diagnosis Glioblastoma Malignant neoplasm of brain, unspecified site documented in this encounter Care Teams Lamps Tester And Inspector Relationship Specialty Start Date End Date Swapna Douglas PA [address] [place] [phone] PCP - General Physician Software Tools Build Engineer 02/01/25 Self-Referred, Patient 08/18/24 Meghna Galeano MD, MPH [address] [place] [phone] [email or web address]. [facility] Neurology 02/01/25 Sabi Oconnell RN [address] [place] [id number] [email or web address] Primary Infusion Nurse 02/24/25 documented as of this encounter Additional Source Comments The information contained in this document represents components of the legal health record. It is not the complete legal health record.[facility]
--- OUTSIDE RECORDS SUMMARY | 2025-02-24 11:00 | XMS_ITS | Encounter Summary ---
Author Organization [facility] Address [address] [place] [phone] Phone Care Team Providers Care Insurance Administrative Assistant Name Role Phone Self-Referred, Patient Unavailable Unavailab Meghna Dalton MD, MPH Unavailable [phone] Swapna Douglas Primary Care Provider [phone] Sabi Oconnell RN Unavailable Vicki [email or web address] Reason for Referral * - New Request Specialty Diagnoses / Procedures Referred By Shahrzad xie Referred To Contact Medical Oncology Procedures Ambulatory [facility] PharmON (Oncology Dental Instructor) E-Consult Meghna Galeano MD, MPH [address] [place] [address] Phone: tel: fax: mailto:[email or web address] Referral ID Status Reason Start Date Expiration Date V isits Requested Visits Authorized [id number] New Request 02/24/2025 1 1 Reason for Visit * - New Request Specialty Diagnoses / Procedures Referred By Shahrzad xie Referred To Contact Medical Oncology Procedures Ambulatory [facility] PharmON (Oncology Dental Instructor) E-Consult Meghna Galeano MD, MPH [address] [place] [address] Phone: tel: fax: mailto:[email or web address] Referral ID Status Reason Start Date Expiration Date V isihi Requested Visits Authorized [id number] New Request 02/24/2025 1 1 Encounter Details Date Type Department Care Team (Nathaly st Contact Info) Description 02/24/2025 11:00 AM EDT Nurse Only [facility] [place] [place] [facility] [place] [address] [facility]th [place] [address] Zara Escobar, PharmD [address] [place] [address] [email or web address] Social History Tobacco Use Types Packs/Day Years [...] high school, GED, job training, learning the Japanese language, technical skills, or developing parenting skills)? [...] PM EDT documented as of this encounter Progress Notes * Zara Escobar, PharmD - 02/24/2025 11:00 AM EDT [facility] Pharmacy Medication Reconciliation Note Name: Brent Hurst Protocol: 24-561 Brent Hurst is a 49 y.o. male with recurrent glioblastoma being considered for clinical trial 24-561: M3554 in Participants with Advanced Solid Tumors. His medication list is being reconciled and evaluated against the protocol to ensure there are no pertinent interactions or prohibitions. PAST MEDICAL HISTORY No Known Allergies Past Medical History: Diagnosis Date Actinic keratosis Frozen shoulder R & L Glioblastoma Hyperlipidemia Hypertensive disorder Kidney stones Type 2 diabetes mellitus without complications Patient Active Problem List Diagnosis Glioblastoma Brain lesion MEDICATION ASSESSMENT Medication history obtained from patient at today???s visit. Changes made to Medication List: Additions: Multivitamin Nicotine lozenge Obdulia-seltzer Deletions: Medications Discontinued During This Encounter Medication Reason oxyCODONE 5 MG immediate release tablet No longer taking atorvastatin (LIPITOR) 20 MG tablet No longer taking HYDROcodone-acetaminophen (NORCO) 5-325 mg per tablet Duplicate order Changes: Acetaminophen taken as needed Alprazolam 1-2 tablets daily as needed Medication Instructions Indication aspirin/sod bicarb/citric acid (OBDULIA-SELTZER ORAL) Take by mouth daily as needed. Acid reflux ALPRAZolam (XANAX) 0.5 MG tablet Take 0.5-1 mg by mouth daily as needed. Indications: anxious Anxiety polyethylene glycol (MIRALAX) 17 gram packet Take 17 g by mouth daily as needed for severe constipation Constipation multivit-minerals/folic acid (MULTIVITAMIN GUMMIES ORAL) Take by mouth daily. Dietary supplementation rosuvastatin (CRESTOR) 5 MG tablet Take 5 mg by mouth daily. Hyperlipidemia amLODIPine (NORVASC) 5 MG tablet Take 5 mg by mouth daily. Hypertension losartan (COZAAR) 50 MG tablet Take 50 mg by mouth 2 (two) times a day. acetaminophen (TYLENOL) 325 mg tablet Take 1,000 mg by mouth daily as needed. Pain HYDROcodone-acetaminophen (NORCO) 5-325 mg per tablet Take 1 tablet by mouth every 6 (six) hours asneeded for pain (specific location in comments). Partial fill ok levETIRAcetam (KEPPRA) 750 MG IMMEDIATE release tablet Take 1 tablet (750 mg total) by mouth 2 (two) times a day. Seizure prophylaxis nicotine polacrilex (COMMIT) [address] 2 mg inside cheek as needed for smoking cessation. Smoking cessation metFORMIN (GLUCOPHAGE) 500 MG tablet Take 500 mg by mouth 4 (four) times a day. Type 2 Diabetes Mellitus OZEMPIC 2 mg/dose (8 mg/3 mL) subcutaneous injection pen inject 2 mg subcutaneously every 7 days M3554 is an ADC targeting GD2 with an exatecan (topo1 inhibitor) payload. The following relevant medication restrictions will apply once enrolled on protocol: Corticosteroids Concomitant or choronic use of immunosuppressive corticosteroids is prohibited (except to manage AEs) He is not on any corticosteroids. CY inhibitors or inducers Exatecan is metabolized CY, thus strong inhibitors and inducers are prohibited. Moderate inhibitors should be avoided unless no alternative treatment exists. He is not on any strong/moderate CY inhibitors or inducers Strong CY inhibitors Exetecan is metabolized by CY, thus strong inhibitors should be avoided unless no alternative treatment exists. He is not on any strong CY inhibitors. Zara Escobar PharmD, [facility] [place] [facility] [place] [email or web address] pager# [id number] Protocol version utilized: 2 ([id number]) documented in this encounter Plan of Treatment Upcoming Encounters Date Type Department Care Team (Late st Contact Info) Description 02/22/2025 Procedure Pass [facility] [employer] Labou[employer] [place] [address] [place] [address] 03/04/2025 6:30 AM EDT [facility], [address] [place] [address] Meghna Galeano MD, MPH [address] [place] [phone] Luis@[email or web address] 03/04/2025 7:30 AM EDT Office Visit [facility] [place], [facility] [address] [place] [address] Gil Kiran PA-C [address] [place] [phone] Nadine@[email or web address] 03/04/2025 7:30 AM EDT Nurse Only [facility] [place], [facility] [place] [address] [facility], [address] [place] [address] Meghna Galeano MD, MPH [address] [place] [address] Luis@[facility] 03/04/2025 8:30 AM EDT Infusion Infusion Therapy Services [facility], [address], [address] [place] [address] Meghna Galeano MD, MPH [address] [place] [address] Luis@[facility] Elvia Humphrey RN [address] [place] [address] [email or web address]@[facility] 03/05/2025 9:00 AM EDT Nurse Only [facility] [place], [address], [address] [place] [address] Meghna Galeano MD, MPH [address] [place] [address] Luis@[facility] Aaron Sherwood RN [address] [place] [address] [email or web address] 03/05/2025 9:00 AM EDT Infusion [facility] Services [address], [address] [place] [address] Meghna Galeano MD, MPH [address] [place] [address] Luis@[facility] Daniela Freire RN [address] [place] [address] Juanito@[facility] 03/09/2025 8:30 AM EDT Nurse Only [facility] [place], [address], [address] [place] [address] Meghna Galeano MD, MPH [address] [place] [phone] Luis@[facility] 03/09/2025 8:30 AM EDT Infusion Infusion Therapy Services [place] [address], [address] [place] [address] Meghna Galeano MD, MPH [address] [place] [address] Luis@[facility] Keira Downey RN [address] [place] [phone] [email or web address] 03/11/2025 6:50 AM EDT Blood Draw Laboratory Services, [address], [address] [place] [address] Meghna Galeano MD, MPH [address] [place] [phone] Luis@[facility] 03/11/2025 7:30 AM EDT Office Visit [facility] [place], [address], [address] [place] [address] Gil Kiran PA-C [address] [place] [phone] Nadine@[facility] 03/11/2025 7:30 AM EDT Nurse Only [facility] [place], [address], [address] [place] [address] Meghna Galeano MD, MPH [address] [place] [phone] Luis@[facility] 03/11/2025 8:30 AM EDT Infusion Infusion Therapy Services [address], [address] [place] [address] Megnha Galeano MD, MPH [address] [place] [phone] Luis@[facility] Sabi Oconnell RN [address] [place] [address] Vicki@[facility] 03/18/2025 7:50 AM EDT Blood Draw [facility], [address], [address] [place] [address] Meghna Galeano MD, MPH [address] [place] [address] Luis@[facility] 03/18/2025 8:30 AM EDT Office Visit [facility] [place], [address], [address] [place] [address] iGl Kiran PA-C [address] [place] [phone] Nadine@[facility] 03/18/2025 8:30 AM EDT Nurse Only [facility] [place], [address], [address] [place] [address] Meghna Galeano MD, MPH [address] [place] [phone] Luis@[facility] 03/18/2025 9:30 AM EDT Infusion Infusion Therapy Services [facility], [address], [address] [place] [address] Meghna Galeano MD, MPH [address] [place] [address] Luis@[facility] Rosa Araujo RN [address] [place] [address] Luis@[facility] 03/25/2025 6:30 AM EDT Blood Draw [facility], [address], [address] [place] [address] Meghna Galeano MD, MPH [address] [place] [phone] Luis@[facility] 03/25/2025 7:30 AM EDT Office Visit [facility] [place], [address], [address] [place] [address] Gil Kiran PA-C [address] [place] [phone] Nadine@[facility] 03/25/2025 7:30 AM EDT Nurse Only [facility] [place], [address], [address] [place] [address] Meghna Galeano MD, MPH [address] [place] [phone] Luis@[facility] 03/25/2025 8:30 AM EDT Infusion Infusion Therapy Services [place] [address], [address], [address] [place] [address] Meghna Galeano MD, MPH [address] [place] [phone] Luis@[facility] Giselle Morgan RN [address] [place] [phone] CHOLO@ [facility] 04/01/2025 7:50 AM EST [facility], [address], [address] [place] [address] Meghna Galeano MD, MPH [address] [place] [phone] Luis@[facility] 04/01/2025 8:30 AM EST Office Visit [facility] [place], [address], [address] [place] [address] Gil Kiran PA-C [address] [place] [phone] Nadine@[facility] 04/01/2025 8:30 AM EST Nurse Only [facility] [place], [address], [address] [place] [address] Meghna Galeano MD, MPH [address] [place] [phone] Luis@[facility] 04/01/2025 9:30 AM EST Infusion Infusion Therapy Services [place] [address], [facility] [address] [facility], [address] [place] [address] Meghna Galeano MD, MPH [address] [place] [phone] Luis@[facility] Juanita Perez RN [address] [place] [address] Gallo@[email or web address] 04/08/2025 6:30 AM EST Blood Draw [facility] Services, [address], [address] [place], [place] Meghna Galeano MD, MPH [address] [place] [address] Luis@[facility] 04/08/2025 7:30 AM EST Office Visit [facility] [place], [address], [address] [place] [address] Lucio Thorne N.P., [employer] [address] [place] [address] [place] [address] Alecia@[facility] 04/08/2025 7:30 AM EST Nurse Only [facility] [place], [address], [address] [place] [address] Meghna Galeano MD, MPH [address] [place] [phone] Luis@[facility] 04/08/2025 8:30 AM EST Infusion Infusion Therapy Services [place] , [facility] [address] [facility], [address] [place] [address] Meghna Galeano MD, MPH [address] [place] [address] Luis@[facility] Rani Garzon, RN [address] [place] [address] 04/13/2025 3:20 PM EST Appointment [facility] [employer] [place] [address] [place] [address] Meghna Galeano MD, MPH [address] [place] [address] Luis@[email or web address] 04/19/2025 10:00 AM EST Telemedicine [facility] Department of Neurosurgery [address] [place] [address] Francesca Mcmahon PA-C [address] [place] [address] [email or web address] documented as of this encounter Visit Diagnoses Not on filedocumented in this encounter Care Teams Insurance Administrative Assistant Relationship Specialty Start Date End Date Swapna Douglas PA [address] [place] [phone] PCP - General Physician Therapist Rrt 02/01/25 Self-Referred, Patient 08/18/24 Meghna Galeano MD, MPH [address] [place] [address] [email or web address] Neurology 02/01/25 Sabi Oconnell, RN [address] [place] [address] [email or web address] Primary Infusion Nurse 02/24/25 documented as of this encounter Additional Source Comments The information contained in this document represents components of the legal health record. It is not the complete legal health record.[facility]
--- OUTSIDE RECORDS SUMMARY | 2025-02-24 12:30 | XMS_ITS | Encounter Summary ---
Author Organization [facility] Address [address] [place] [address] [place] [address] Phone Care Team Providers Care Bond Underwriter Name Role Phone Self-Referred, Patient Unavailable Unavailab Meghna Dalton MD, MPH Unavailable [phone] Swapna Douglas Primary Care Provider [phone] Sabi Oconnell RN Unavailable Vicki @[facility] Reason for Visit * Consultation (Routine) - Authorized Specialty Diagnoses / Procedures Referred By Shahrzad xie Referred To Contact Diagnoses GBM // Recs at [facility] / [facility]/ [facility] / [facility] Procedures CONSULT FELLOW Unknown, Unknown, [address] [address] Referral ID Status Reason Start Date Expiration Date V isits Requested Visits Authorized [id number] Authorized 09/02/2024 05/26/2025 1000 1000 Encounter Details Date Type Department Care Team (Late st Contact Info) Description 02/24/2025 12:30 PM EDT Office Visit Center for Neuro-Oncology, [facility] [address], 9th [place] [address] Meghna Galeano MD, MPH [address] [place] [address] Luis@ [facility] Glioblastoma (Primary Dx) Social History Tobacco Use Types Packs/Day Years [...] high school, GED, job training, learning the Tajik language, technical skills, or developing parenting skills)? [...] Sign Reading Time Taken Comments Blood Pressure 114/78 02/24/2025 11:42 AM EDT Pulse 105 02/24/2025 11:42 AM EDT Temperature 36.8 C (98.2 F) 02/24/2025 11:42 AM EDT Respiratory Rate 18 02/24/2025 11:4 0 AM EDT Oxygen Saturation 97% 02/24/2025 11: 42 AM EDT Inhaled Oxygen Concentration - - Weight 105.1 kg (231 lb 11.3 oz) 2024 11:40 AM EDT Height 171.2 cm (5' 7.4 ) 02/24/2025 11 :40 AM EDT Body Mass Index 35.86 02/24/2025 11:40 AM EDT documented in this encounter Plan of Treatment Upcoming Encounters Date Type Department Care Team (Late st Contact Info) Description 02/22/2025 Procedure Pass [facility] Debt Counselor [place] [address] [place] [address] 03/04/2025 6:30 AM EDT Blood Draw Laboratory Services, [facility] [place] [address] [place] [address], 2nd [place] [address] Meghna Galeano MD, MPH [address] [place] [address] Meghna_[email or web address] I.[facility] 03/04/2025 7:30 AM EDT Office Visit [facility] [place], [facility] [address], 6th [place] [address] Gil Kiran PA-C [address] [place] [address] Nadine@[facility] 03/04/2025 7:30 AM EDT Nurse Only [place] [facility] [place], [address] [address] Meghna Galeano MD, MPH [address] [place] [phone] Luis@[facility] 03/04/2025 8:30 AM EDT Infusion Infusion Therapy Services [address] [address] Meghna Galeano MD, MPH [address] [place] [phone] Luis@[facility] Elvia Humphrey RN [address] [place] [address] ELEANOR@[facility] 03/05/2025 9:00 AM EDT Nurse Only [place] [facility] [place], [address] [address] Mehgna Galeano MD, MPH [address] [place] [address] Luis@[facility] Aaron Sherwood RN [address] [place] [address] carlos@[facility] 03/05/2025 9:00 AM EDT Infusion Infusion Therapy Services [address], [address] [place] [address] Meghna Galeano MD, MPH [address] [place] [phone] Luis@[facility] Daniela Freire RN [address] [place] [address] Juanito@[facility] 03/09/2025 8:30 AM EDT Nurse Only [facility] [place], [address] [address] Meghna Galeano MD, MPH [address] [place] [phone] Luis@[facility] 03/09/2025 8:30 AM EDT Infusion Infusion Therapy Services [address], [address] [place] [address] Meghna Galeano MD, MPH [address] [place] [phone] Luis@[facility] Keira Downey RN [address] [place] [address] [email or web address] 03/11/2025 6:50 AM EDT Blood Draw Laboratory Services, [address], [address] [place] [address] Meghna Galeano MD, MPH [address] [place] [phone] Luis@[facility] 03/11/2025 7:30 AM EDT Office Visit [place] [facility] [place], [address], [address] [place] [address] Gil Kiran PA-C [address] [place] [address] [email or web address]@[facility] 03/11/2025 7:30 AM EDT Nurse Only [facility] [place], [address], [address] [place] [address] Meghna Galeano MD, MPH [address] [place] [phone] Luis@[facility] 03/11/2025 8:30 AM EDT Infusion Infusion Therapy Services [address], [address] [place] [address] Meghna Galeano MD, MPH [address] [place] [phone] Luis@[facility] Sabi Oconnell RN [address] [place] [address] Vicki@[facility] 03/18/2025 7:50 AM EDT Blood Draw Laboratory Services, [address], 2nd [place] [address] Meghna Galeano MD, MPH [address] [place] [phone] Luis@[facility] 03/18/2025 8:30 AM EDT Office Visit [place] [facility] [place], [address], [address] [place] [address] Gil Kiran PA-C [address] [place] [phone] Nadine@[facility] 03/18/2025 8:30 AM EDT Nurse Only [place] [facility] [place], [address], [address] [place] [address] Meghna Galeano MD, MPH [address] [place] [phone] Luis@[facility] 03/18/2025 9:30 AM EDT Infusion Infusion Therapy Services [address], [address] [place] [address] Meghna Galeano MD, MPH [address] [place] [phone] Luis@[facility] Rosa Araujo, CHIVO [address] [place] [address] Luis@[facility] 03/25/2025 6:30 AM EDT Blood Draw Laboratory Services, [address], [address] [place] [address] Meghna Galeano MD, MPH [address] [place] [phone] Luis@[facility] 03/25/2025 7:30 AM EDT Office Visit [place] [facility] [place], [address], [address] [place] [address] Gil Kiran PA-C [address] [place] [address] Nadine@[facility] 03/25/2025 7:30 AM EDT Nurse Only [place] [facility] [place], [address] [address] Meghna Galeano MD, MPH [address] [place] [phone] Luis@[facility] 03/25/2025 8:30 AM EDT Infusion Infusion Therapy Services [address] [address] Meghna Galeano MD, MPH [address] [place] [address] Luis@[facility] Giselle Morgan, CHIVO [address] [place] [address] CHOLO@ [facility] 04/01/2025 7:50 AM EST Blood Draw Laboratory Services, [address] Meghna Galeano MD, MPH [address] [place] [phone] Luis@[facility] 04/01/2025 8:30 AM EST Office Visit [place] [facility] [place], [address] [address] Gil Kiran PA-C [address] [place] [address] Nadine@[facility] 04/01/2025 8:30 AM EST Nurse Only [place] [facility] [place], [address], [address] [place] [address] Meghna Galeano MD, MPH [address] [place] [phone] Luis@[facility] 04/01/2025 9:30 AM EST Infusion Infusion Therapy Services [place] [address], [address], [address] [place] [address] Meghna Galeano MD, MPH [address] [place] [address] Luis@[facility] Juanita Perez, CHIVO [address] [place] [address] Gallo@[email or web address] 04/08/2025 6:30 AM EST Blood Draw Laboratory Services, [address], [address] [place], [place] Meghna Galeano MD, MPH [address] [place] [phone] Luis@[facility] 04/08/2025 7:30 AM EST Office Visit [place] [facility] [place], [address], [address] [place] [address] Lucio Thorne N.P., SUPERVISOR FRAME ASSEMBLY [address] [place] [address] [place] [address] Alecia@[facility] 04/08/2025 7:30 AM EST Nurse Only [facility] [place], [address], [address] [place] [address] Meghna Galeano MD, MPH [address] [place] [phone] Luis@[facility] 04/08/2025 8:30 AM EST Infusion Infusion Therapy Services [address], [address] [place] [address] Meghna Galeano MD, MPH [address] [place] [address] Luis@[facility] Rani Garzon RN [address] [place] [address] maria de [email or web address] 04/13/2025 3:20 PM EST Appointment [facility]'s Debt Counselor [address] [address] Meghna Galeano MD, MPH [address] [place] [phone] Luis@[facility] 04/19/2025 10:00 AM EST Telemedicine [facility] Department of Neurosurgery [address] [place] [address] Francesca Mcmahon PA-C [address] [place] [address] [email or web address] [place] Scheduled Referrals Name Type Priority Associated Diagnoses Order Schedule Ambulatory referral to [facility] Center for Cancer Therapeutics and [place] ([facility]) Outpatient Referral Routine Ordere d: 02/02/2025 documented as of this encounter Visit Diagnoses Diagnosis Glioblastoma- Primary Malignant neoplasm of brain, unspecified site documented in this encounter Care Teams Bond Underwriter Relationship Specialty Start Date End Date Swapna Douglas PA [address] [place] [address] PCP - General Physician Cda Teacher 02/01/25 Self-Referred, Patient 08/18/24 Meghna Galeano MD, MPH [address] [place] [phone] Luis@[email or web address]. [facility] Neurology 02/01/25 Sabi Oconnell, RN [address] [place] [address] Vicki@[facility] Primary Infusion Nurse 02/24/25 documented as of this encounter Additional Source Comments The information contained in this document represents components of the legal health record. It is not the complete legal health record.[facility]
--- OUTSIDE RECORDS SUMMARY | 2025-02-24 13:30 | XMS_ITS | Encounter Summary ---
Author Organization [facility] Address [address] [place] [address] Phone Care Team Providers Care Industrial Hire Sales Assistant Name Role Phone Self-Referred, Patient Unavailable Unavailab Meghna Dalton MD, MPH Unavailable Swapna Douglas Primary Care Provider [phone] Sabi Oconnell RN Unavailable Vicki @[email or web address] Reason for Visit * Reason Comments Blood Draw * Consultation (Routine) - Authorized Specialty Diagnoses / Procedures Referred By Shahrzad xie Referred To Contact Diagnoses GBM // Recs at [facility] / [facility]/ [facility] / [facility] Procedures CONSULT FELLOW Unknown, Unknown, [address] [address] Referral ID Status Reason Start Date Expiration Date V isits Requested Visits Authorized [id number] Authorized 09/02/2024 05/26/2025 1000 1000 Encounter Details Date Type Department Care Team (Late st Contact Info) Description 02/24/2025 1:30 PM EDT Infusion Infusion Therapy Services [address] Cancer [address], 6th [place] [address] Meghna Galeano MD, MPH [address] [place] [address] Luis@[email or web address] Sabi Oconnell RN [address] [place] [address] [email or web address] Glioblastoma Social History Tobacco Use Types Packs/Day [...] high school, GED, job training, learning the Romanian language, technical skills, or developing parenting skills)? [...] Sign Reading Time Taken Comments Blood Pressure 147/82 02/24/2025 2:04 PM EDT Pulse 98 02/24/2025 2:02 PM EDT Temperature 36.6 C (97.8 F) 02/24/2025 2:02 PM EDT Respiratory Rate 18 02/24/2025 2:02 PM EDT Oxygen Saturation 100% 02/24/2025 2:02 PM EDT Inhaled Oxygen Concentration - - Weight - - Height - - Body Mass Index - - documented in this encounter Progress Notes * Sabi Oconnell RN - 02/24/2025 1:30 PM EDT Brent is in clinic for screening assessments for protocol [id number]. VSS, offers no complaints today.Triplicate blood pressured collected w/o incident. T bili redrawn as it had hemolyzed this morning,confirmed w/ RRN brent did not need to stay in clinic for results. Brent is in agreement w/ treatment plan and aware to call w/ questions or concerns, left clinic stable. documented in this encounter Plan of Treatment Upcoming Encounters Date Type Department Care Team (Late st Contact Info) Description 02/22/2025 Procedure Pass [facility] Wax Machine Operator [place] [address] [place] [address] 03/04/2025 6:30 AM EDT Blood Draw Laboratory Services, [address], [address] [place] [address] Meghna Galeano MD, MPH [address] [place] [phone] Luis@[facility] 03/04/2025 7:30 AM EDT Office Visit [facility] [place], [address], [address] [place] [address] Gil Kiran PA-C [address] [place] [phone] Nadine@[facility] 03/04/2025 7:30 AM EDT Nurse Only [place] [facility] [place], [address], [address] [place] [address] Meghna Galeano MD, MPH [address] [place] [phone] Luis@[facility] 03/04/2025 8:30 AM EDT Infusion Infusion Therapy Services [address], [address] [place] [address] Meghna Galeano MD, MPH [address] [place] [phone] Luis@[facility] Elvia Humphrey RN [address] [place] [phone] ELEANOR@[facility] 03/05/2025 9:00 AM EDT Nurse Only [place] [facility] [place], [address], [address] [place] [address] Meghna Galeano MD, MPH [address] [place] [phone] Luis@[facility] Aaron Sherwood, CHIVO [address] [place] [address] [email or web address] 03/05/2025 9:00 AM EDT Infusion Infusion Therapy Services [address], [address] [place] [address] Meghna Galeano MD, MPH [address] [place] [phone] Luis@[facility] Daniela Freire RN [address] [place] [address] Juanito@[facility] 03/09/2025 8:30 AM EDT Nurse Only [facility] [place], [address], [address] [place] [address] Meghna Galeano MD, MPH [address] [place] [address] Luis@[facility] 03/09/2025 8:30 AM EDT Infusion Infusion Therapy Services [address], [address] [place] [address] Meghna Galeano MD, MPH [address] [place] [phone] Luis@[facility] Keira Downey RN [address] [place] [address] [email or web address] 03/11/2025 6:50 AM EDT Blood Draw Laboratory Services, [address], [address] [place] [address] Meghna Galeano MD, MPH [address] [place] [phone] Luis@[facility] 03/11/2025 7:30 AM EDT Office Visit [facility] [place], [address], [address] [place] [address] Gil Kiran PA-C [address] [place] [phone] Nadine@[facility] 03/11/2025 7:30 AM EDT Nurse Only [facility] [place], [address], [address] [place] [address] Meghna Galeano MD, MPH [address] [place] [phone] Luis@[facility] 03/11/2025 8:30 AM EDT Infusion Infusion Therapy Services [place] [address], [address], [address] [place] [address] Meghna Galeano MD, MPH [address] [place] [phone] Luis@[facility] Sabi Oconnell RN [address] [place] [address] Vicki@[facility] 03/18/2025 7:50 AM EDT Blood Draw Laboratory Services, [address], [address] [place] [address] Meghna Galeano MD, MPH [address] [place] [phone] Luis@[facility] 03/18/2025 8:30 AM EDT Office Visit [facility] [place], [address], [address] [place] [address] Gil Kiran PA-C [address] [place] [phone] Nadine@[facility] 03/18/2025 8:30 AM EDT Nurse Only [facility] [place], [address], [address] [place] [address] Meghna Galeano MD, MPH [address] [place] [phone] Luis@[facility] 03/18/2025 9:30 AM EDT Infusion Infusion Therapy Services [address], [address] [place] [address] Meghna Galeano MD, MPH [address] [place] [phone] Luis@[facility] Rosa Araujo, CHIVO [address] [place] [address] Luis@[facility] 03/25/2025 6:30 AM EDT Blood Draw Laboratory Services, [address], [address] [place] [address] Meghna Galeano MD, MPH [address] [place] [phone] Luis@[facility] 03/25/2025 7:30 AM EDT Office Visit [place] [facility] [place], [address], [address] [place] [address] Gil Kiran PA-C [address] [place] [address] Nadine@[facility] 03/25/2025 7:30 AM EDT Nurse Only [facility] [place], [address] [address] Meghna Galeano MD, MPH [address] [place] [phone] Luis@[facility] 03/25/2025 8:30 AM EDT Infusion Infusion Therapy Services [address], [address] [place] [address] Meghna Galeano MD, MPH [address] [place] [phone] Luis@[facility] Giselle Morgan, RN [address] [place] [address] CHOLO@ [facility] 04/01/2025 7:50 AM EST Blood Draw Laboratory Services, [address], [address] [place] [address] Meghna Galeano MD, MPH [address] [place] [phone] Luis@[facility] 04/01/2025 8:30 AM EST Office Visit [facility] [place], [address], [address] [place] [address] Gil Kiran PA-C [address] [place] [address] Nadine@[facility] 04/01/2025 8:30 AM EST Nurse Only [facility] [place], [address], [address] [place] [address] Meghna Galeano MD, MPH [address] [place] [phone] Luis@[facility] 04/01/2025 9:30 AM EST Infusion Infusion Therapy Services [place] [address], [address], [address] [place] [address] Meghna Galeano MD, MPH [address] [place] [phone] Luis@[facility] Juanita Perez, CHIVO [address] [place] [address] Gallo@[facility] 04/08/2025 6:30 AM EST Blood Draw Laboratory Services, [address], [address] [place] [address] Meghna Galeano MD, MPH [address] [place] [address] Luis@[facility] 04/08/2025 7:30 AM EST Office Visit [facility] [place], [facility] [address] [facility], [address] [place] [address] Lucio Thorne N.P., RECRUITMENT MANAGER [address] [facility] [place] [address] Alecia@[facility] 04/08/2025 7:30 AM EST Nurse Only [facility] [place], [address], [address] [place] [address] Meghna Galeano MD, MPH [address] [place] [phone] Luis@[facility] 04/08/2025 8:30 AM EST Infusion Infusion Therapy Services [address], [address] [place] [address] Meghna Galeano MD, MPH [address] [place] [phone] Luis@[facility] Rani Garzon RN [address] [place] [address] maria de [email or web address] 04/13/2025 3:20 PM EST Appointment [facility]'s Wax Machine Operator [place] [address] [place] [address] Meghna Galeano MD, MPH [address] [place] [phone] Luis@[facility] 04/19/2025 10:00 AM EST Telemedicine [facility] Department of Neurosurgery [address] [place] [address] Francesca Mcmahon PA-C [address] [address] TRESSA@[email or web address] [place] documented as of this encounter Procedures Procedure Name Priority Date/Time Associated Diagnosis Comments BILIRUBIN, DIRECT Routine 02/24/2025 2:1 6 PM EDT Glioblastoma documented in this encounter Results * Bilirubin, direct (02/24/2025 2:16 PM EDT) DIRECT BILIRUBIN 0.2 0.0 - 0.3 mg/dL [facility] Blood 02/24/2025 2:16 PM EDT 02/24/2025 2:24 PM EDT us Meghna Galeano MD, MPH LAB BLOOD ORDERABLES Final Result [facility] [address] [place] [address] documented in this encounter Visit Diagnoses Diagnosis Glioblastoma Malignant neoplasm of brain, unspecified site documented in this encounter Care Teams Industrial Hire Sales Assistant Relationship Specialty Start Date End Date Swapna Douglas PA [address] [place] [address] PCP - General Physician Instrumentation And Controls Designer 02/01/25 Self-Referred, Patient 08/18/24 Meghna Galeano MD, MPH [address] [place] [address] Luis@[email or web address] [place] Neurology 02/01/25 Sabi Oconnell, RN [address] [place] [address] Vicki@[email or web address] Primary Infusion Nurse 02/24/25 documented as of this encounter Additional Source Comments The information contained in this document represents components of the legal health record. It is not the complete legal health record.[facility]
--- NOTE | 2025-03-01 14:31 | MHC.PC.OV ---
Vital Signs 03/01/25 14:32 Height 5 ft 8.31 in Weight 230 lb BMI 34.7 BP 123/60 Blood Pressure Location Rt brachial Position Sitting Respiration 16 Pulse 110 H Pulse Source Pulse Oximeter Temp 97 F Temp Source Temporal Artery Scan Pulse Oximetry (%) 98 Oxygen Delivery Method Room Air Intake Visit Reasons: follow up Intermediate Frame Tender Required: No Accompanied by: Self / Same As Patient Allergies No Known Allergies Allergy (Verified 03/01/25 15:06) Medication List - Last Reconciled 03/01/25 by Swapna Dogulas PA-C alprazolam 0.5 mg PO BID 30 days amlodipine 5 mg PO DAILY hydrocodone-acetaminophen 5-325 mg 1 tab PO BID PRN levetiracetam 1,500 mg PO BID losartan 50 mg PO BID metformin 500 mg PO TID rosuvastatin 5 mg PO DAILY semaglutide (Ozempic) 2 mg subcut QWEEK Tobacco use date assessed: 03/01/25 Dental Screening Dental Screen Date: 03/01/25 Did you have a dental visit in the last 12 months?: Yes Did you have a dental problem in the last 6 months where you did not have access to dental care?: No Was dental information given to patient?: Patient has dentist HPI follow up HPI Details The patient is a 49-year-old male presenting with brain tumor recurrence. The tumor was initially treated with surgery on January 14, but has since recurred, necessitating further intervention. The patient is enrolled in a phase one clinical trial at [facility], involving an antibody-drug conjugate targeting cancer cells. The trial drug, identified as M 3554, is designed to bind to cancer cells and deliver chemotherapy directly, with pain being the primary reported side effect. The patient is scheduled for an infusion on March 04 and has been approved to continue current medications, including Jerusalem 5 mg x 325 b.i.d. for pain management. Additionally, the patient reports shoulder pain, which was temporarily alleviated by acupuncture during a recent cruise. He plans to pursue further acupuncture treatments through a support group offering free services for cancer patients. Social History - The patient recently went on a cruise to [place], where he engaged in acupuncture treatments for shoulder pain. - He plans to continue acupuncture through a local support group offering free services for cancer patients. [facility] Medical History Type 2 diabetes mellitus with hemoglobin A1c goal of less than 7.0% Hypertension Anxiety Brain cancer Multiple nevi Frozen shoulder Left shoulder pain Family History Father Prediabetes Mother Lung cancer Social History Housing: Apartment Alcohol intake: current Alcohol intake frequency: holidays/special occasions only Patient Tobacco Use Status: Former Tobacco user service: No Current occupational status: disabled Cognitive needs: No Hearing needs: No Vision needs: Yes (reading glasses) Questionnaire PHQ-9 Over the last 2 weeks, how often have you been bothered by any of the following problems? 1. Little interest or pleasure in doing things: not at all 2. Feeling down, depressed, or hopeless: not at all 3. Trouble falling or staying asleep, or sleeping too much: not at all 4. Feeling tired or having little energy: not at all 5. Poor appetite or overeating: not at all 6. Feeling bad about yourself - or that you are a failure or have let yourself or your family down: not at all 7. Trouble concentrating on things, such as reading the newspaper or watching television: not at all 8. Moving or speaking so slowly that other people could have noticed. Or the opposite - being so fidgety or restless that you have been moving around a lot more than usual: not at all 9. Thoughts that you would be better off or of hurting yourself in some way: not at all Total score: 0 Depression Screening Interpretation: Negative Depression Screening Done: Yes 42784 - PHQ-9 Billing: Yes Source: Developed by Drs. Tremayne Avendano, Estelle Zhang, Kane Moseley and colleagues, with an educational briana from [employer]. Thrive Questionnaire Date Thrive assessed: 03/01/25 I am a: Patient What is your living situation today?: I have a steady place to live Within the past 12 months, did the food you bought not last and you didn't have the money to get more?: Never true Within the past 12 months, did you worry whether your food would run out before you got money to buy more?: Never true Do you have trouble paying for medicines?: No Do you have trouble getting transportation to medical appointments?: No Do you have trouble paying your heating and electricity bill?: No Do you have trouble taking care of your child, family member or friend?: No Do you have trouble with day-to-day activities such as bathing, preparing meals, shopping, managing finances, etc.?: No Are you currently unemployed and looking for a job?: No Are you interested in more education?: No Please select the resources that you would like help with: None THRIVE Score: 0 AUDIT C Alcohol Use Questionnaire (AUDIT-C) 1. How often do you have a drink containing alcohol?: Monthly or less 2. How many drinks containing alcohol do you have on a typical day when you are drinking?: 1 or 2 3. How often do you have six or more drinks on one occasion?: Never Total Score: 1 Score Reviewed/Action Taken: No LINDA-7 AMB Questionnaire LINDA-7 Date LINDA - 7 assessed: 03/01/25 Feeling nervous, anxious, or on edge: 0 = Not at all Not being able to stop or control worryin = Not at all Worrying too much about different things: 0 = Not at all Trouble relaxin = Not at all Being so restless that it is hard to sit still: 0 = Not at all Becoming easily annoyed or irritable: 0 = Not at all Feeling afraid as if something awful might happen: 0 = Not at all Total LINDA-7 score (0-4 normal; 5-9 mild; 10-14 moderate; 15-21 severe): 0 Source: Developed by Drs. Tremayne Avendano, Estelle Zhang, Kane Moseley and colleagues, with an educational briana from [employer]. LINDA-7 Assessment Billing LINDA-7 Assessment Tool: LINDA-7 Assessment 13624 Review of Systems Const Details: - Neurological: Reports no vision changes or other neurological symptoms. - Musculoskeletal: Reports shoulder pain, temporarily relieved by acupuncture. All systems reviewed & are unremarkable except as noted in HPI and below Physical exam (Primary Care) Vital Signs: Last Vital Signs Temp 97 F 03/01/25 14:32 Pulse 110 H 03/01/25 14:32 Resp 16 03/01/25 14:32 BP 123/60 03/01/25 14:32 Pulse Ox 98 03/01/25 14:32 Oxygen Delivery Method Room Air 03/01/25 14:32 Care Plan Goal for BP management: <140/90 at Goal BMI result Body Mass Index 34.7 BMI Assessment/Plan discussion: High BMI High, discussed plan: lifestyle, weight reduction, dietary, physical activity, alcohol moderation and other Tobacco/Smoking Status: Tobacco use Status Tobacco use date assessed 03/01/25 03/01/25 14:36 Patient Tobacco Use Status Former Tobacco user 03/01/25 14:36 PHQ-9: PHQ-9 Score PHQ-9: Total score 0 03/01/25 14:36 Depression Screening Interpretation: Negative Thrive Assessment: Date of Thrive Assessment Date Thrive assessed 03/01/25 03/01/25 14:36 Const Other: Appearance: Alert. Oriented X3. No acute distress. Head: Normal external exam. Normocephalic. Atraumatic. Eyes: Pupils are equal, round, and reactive to light. Extraocular movements intact. Conjunctiva and sclera normal. Eyelids normal. Throat: Pharynx normal. Uvula midline. Moist mucous membranes. Neck: Normal inspection. Neck supple. Full range of motion. Cardiovascular: Normal heart rate and rhythm. Respiratory: No respiratory distress. Painless inspiration. Back: Full range of motion noted. Skin: Skin warm and dry. Normal skin color. Extremities: Extremities exhibit normal range of motion. Coding Level of Care Code Est Pt Level 4 (27480) Complex EM visit Add On G2211 Diagnoses Brain cancer C71.9 Left shoulder pain M25.512 Additional Codes LINDA-7 Assessment Billing - LINDA-7 Assessment Tool: LINDA-7 Assessment 06314 ([id number]) PHQ-9 - 16063 - PHQ-9 Billing: Yes ([id number]) Assessment & Plan Assessment & Plan (1) Brain cancer: Code(s): C71.9 - Malignant neoplasm of brain, unspecified Category: Medical Plan: The patient is enrolled in a phase one clinical trial at [facility], testing an antibody-drug conjugate, M 3554, which targets cancer cells and delivers chemotherapy. The infusion is scheduled for March 04, and the patient will continue current medications, including Jerusalem for pain management. (2) Left shoulder pain: Code(s): M25.512 - Pain in left shoulder Category: Medical Plan: The patient reports shoulder pain, which was temporarily alleviated by acupuncture during a recent cruise. He plans to pursue further acupuncture treatments through a support group offering free services for cancer patients. Patient to continue Jerusalem 5 x 325 mg b.i.d.. Refill sent today. Pain contract already sign. Patient passed drug test. Explained to patient he does not have to come every 30 days. Condition is chronic and stable will continue to monitor. Plan Plan Patient was informed and verbally consented to the use of an ambient scribe for clinic note documentation during this visit. 1. Brain Tumor Recurrence The patient is enrolled in a phase one clinical trial at [facility], testing an antibody-drug conjugate, M 3554, which targets cancer cells and delivers chemotherapy. The infusion is scheduled for March 04, and the patient will continue current medications, including Jerusalem for pain management. 2. Shoulder Pain The patient reports shoulder pain, which was temporarily alleviated by acupuncture during a recent cruise. He plans to pursue further acupuncture treatments through a support group offering free services for cancer patients. I discussed with the patient the recurrence of his brain tumor and the upcoming participation in a phase one clinical trial at [facility]. We reviewed the mechanism of the trial drug, M 3554, and its potential side effects, primarily pain. The patient was advised to continue his current medications and was informed about the infusion scheduled for March 04. Medications: Refilled alprazolam 0.5 mg PO BID 60 tabs 0RF 30 days hydrocodone-acetaminophen 5-325 mg 1 tab PO BID PRN 60 tabs 0RF pain Patient Instructions: - Continue current medications, including Jerusalem, as prescribed. - Attend the scheduled infusion on March 04 at [facility]. - Consider continuing acupuncture treatments for shoulder pain through the [facility] support group.
[2025-03-01 14:32] VITALS: BP 123/60; PULSE 110; RESP 16; TEMP 36.1; O2SAT 98; BMI 34.7
--- OUTSIDE RECORDS SUMMARY | 2025-03-01 16:53 | XMS_ITS ---
Author Organization [facility] Address [address] [place] [address] Phone Care Team Providers Care Machine Shop Helper Name Role Phone Self-Referred, Patient Unavailable Unavailab Meghna Dalton MD, MPH Unavailable Swapna Douglas Primary Care Provider [phone] Sabi Oconnell RN Unavailable Vicki [email or web address] Active Problems Problem Noted Date Diagnosed Date [...]
--- OUTSIDE RECORDS SUMMARY | 2025-03-01 16:53 | XMS_ITS | Encounter Summary ---
Author Organization [facility] Address [address] [place] [phone] Phone Care Team Providers Care Repairer Veneer Sheet Name Role Phone Self-Referred, Patient Unavailable Unavailab Lucio Arora MD Primary Care Provider [phone] Meghna Galeano MD, MPH Unavailable Swapna Douglas Primary Care Provider [phone] Sabi Oconnell RN Unavailable Vicki [email or web address] Encounter Details Date Type Department Care Team (Late st Contact Info) Description 01/13/2025 Procedure Pass [facility] Radiology [address] [place] [address] Social History Tobacco Use Types Packs/Day Years [...] high school, GED, job training, learning the Malaysian language, technical skills, or developing parenting skills)? [...] have you moved in the past 12 sat? One time 01/13/2025 Paying for Meds Answer [...] Author No Risk Indicated 01/14/2025 4:00 AM EDT Bev Harrell RN * [place] Suicide Severity Rating Scale (Screener/Recent Self-Report) Question Answer Date of Assessment Author 1. Wish to be (Past 1 Month) No 025 4:00 AM EDT Bev Harrell RN 2. Non-Specific Active Suici wilder Thoughts (Past 1 Month) No 01/14/2025 4:00 AM EDT Sergey Harrell RN 6. Suicidal Behavior (Lifetime) No 4:00 AM EDT Bev Harrell RN documented as of this encounter Plan of Treatment Upcoming Encounters Date Type Department Care Team (Late st Contact Info) Description 02/22/2025 Procedure Pass [facility]' Psychologist [facility] [place] [address] [place] [address] 03/04/2025 6:30 AM EDT Blood Draw Laboratory Services, [address], [address] [place], [place] Meghna Galeano MD, MPH [address] [place] [phone] [email or web address] 03/04/2025 7:30 AM EDT Office Visit [facility], [address] [place] [address] Gil Kiran PA-C [address] [place] [phone] [email or web address] 03/04/2025 7:30 AM EDT Nurse Only [facility], [address], [address] [place] [address] Meghna Galeano MD, MPH [address] [place] [phone] Luis@[email or web address] 03/04/2025 8:30 AM EDT Infusion [facility], [address] [address] Meghna Galeano MD, MPH [address] [place] [phone] Luis@[email or web address] Elvia Humphrey RN [address] [place] [phone] [email or web address]@[email or web address] 03/05/2025 9:00 AM EDT Nurse Only [facility], [address] [address] Meghna Galeano MD, MPH [address] [place] [phone] Luis@[email or web address] Aaron Sherwood, CHIVO [address] [place] [address] [email or web address] 03/05/2025 9:00 AM EDT Infusion Infusion Therapy Services [address], [address] [place] [address] Meghna Galeano MD, MPH [address] [place] [phone] Luis@[facility] Daniela Freire RN [address] [place] [phone] Juanito@[facility] 03/09/2025 8:30 AM EDT Nurse Only [facility], [address], [address] [place] [address] Meghna Galeano MD, MPH [address] [place] [phone] Luis@[facility] 03/09/2025 8:30 AM EDT Infusion Infusion [facility] Services [facility], [address], [address] [place] [address] Meghna Galeano MD, MPH [address] [place] [phone] Luis@[facility] Keira Downey RN [address] [place] [phone] [email or web address] 03/11/2025 6:50 AM EDT Blood Draw Laboratory Services, [address], [address] [place] [address] Meghna Galeano MD, MPH [address] [place] [phone] [email or web address]@[facility] 03/11/2025 7:30 AM EDT Office Visit [facility], [address], [address] [place] [phone] Gil Kiran PA-C [address] [place] [phone] Nadine@[facility] 03/11/2025 7:30 AM EDT Nurse Only [facility], [address], [address] [place] [address] Meghna Galeano MD, MPH [address] [place] [phone] Luis@[facility] 03/11/2025 8:30 AM EDT Infusion Infusion Therapy Services [place] [id number], [address], [address] [place] [address] Meghna Galeano MD, MPH [address] [place] [phone] Luis@[facility] Sabi Oconnell RN [address] [place] [address] Vicki@[facility] 03/18/2025 7:50 AM EDT Blood Draw [facility], [address], [address] [place] [address] Meghna Galeano MD, MPH [address] [place] [phone] Luis@[facility] 03/18/2025 8:30 AM EDT Office Visit [facility], [address], [address] [place] [address] Gil Kiran PA-C [address] [place] [phone] Nadine@[facility] 03/18/2025 8:30 AM EDT Nurse Only [facility], [address], [address] [place] [address] Meghna Galeano MD, MPH [address] [place] [phone] Luis@[facility] 03/18/2025 9:30 AM EDT Infusion Infusion Therapy Services [facility], [address], [address] [place] [address] Meghna Galeano MD, MPH [address] [place] [phone] Luis@[facility] Rosa Araujo RN [address] [place] [address] Luis@[facility] 03/25/2025 6:30 AM EDT Blood Draw Laboratory Services, [address], [address] [place] [address] Meghna Galeano MD, MPH [address] [place] [phone] Luis@[facility] 03/25/2025 7:30 AM EDT Office Visit [facility], [address], [address] [place] [phone] Gil Kiran PA-C [address] [place] [phone] Nadine@[facility] 03/25/2025 7:30 AM EDT Nurse Only [facility], [address], [address] [place] [address] Meghna Galeano MD, MPH [address] [place] [phone] Luis@[facility] 03/25/2025 8:30 AM EDT Infusion [facility], [address], [address] [place] [address] Meghna Galeano MD, MPH [address] [place] [phone] Luis@[facility] Giselle Morgan RN [address] [place] [phone] CHOLO@ [facility] 04/01/2025 7:50 AM EST Blood Draw [facility], [address], [address] [place] [address] Meghna Galeano MD, MPH [address] [place] [phone] Luis@[email or web address] 04/01/2025 8:30 AM EST Office Visit [facility], [address], [address] [place] [phone] Gil Kiran PA-C [address] [place] [phone] Nadine@[facility] 04/01/2025 8:30 AM EST Nurse Only [facility], [address], [address] [place] [address] Meghna Galeano MD, MPH [address] [place] [phone] Luis@[facility] 04/01/2025 9:30 AM EST Infusion [facility], [address], [address] [place] [address] Meghna Galeano MD, MPH [address] [place] [phone] Luis@[facility] Juanita Perez, CHIVO [address] [place] [address] [email or web address] 04/08/2025 6:30 AM EST Blood Draw [facility] Services, [address], [address] [place] [address] Meghna Galeano MD, MPH [address] [place] [phone] Luis@[email or web address] 04/08/2025 7:30 AM EST Office Visit [facility], [address], [address] [place] [phone] Lucio Thorne N.P., CHILI PEPPER GRINDER [address] [place] [address] [place] [address] [email or web address]@[email or web address] 04/08/2025 7:30 AM EST Nurse Only [facility], [address], [address] [place] [address] Meghna Galeano MD, MPH [address] [place] [phone] Luis@[email or web address] 04/08/2025 8:30 AM EST Infusion Infusion Therapy Services [place] , [address], [address] [place] [address] Meghna Galeano MD, MPH [address] [place] [phone] Luis@[email or web address] Rani Garzon, CHIVO [address] [place] [address] maria de 04/13/2025 3:20 PM EST Appointment [facility] Psychologist [facility] [place] [address] [place] [address] Meghna Galeano MD, MPH [address] [place] [address] Luis@[email or web address] 04/19/2025 10:00 AM EST Telemedicine [facility] Department of Neurosurgery [address] [place] [address] Francesca Mcmahon PA-C [address] [place], [place] [email or web address] documented as of this encounter Visit Diagnoses Not on filedocumented in this encounter Care Teams Repairer Veneer Sheet Relationship Specialty Start Date End Date Lucio Bhatt MD [address] [place] [phone] PCP - General Internal Medicine 08/18/24 01/31/25 Swapna Douglas PA [address] [place] [address] PCP - General Physician Salon Assistant 02/01/25 Self-Referred, Patient 08/18/24 Meghna Galeano MD, MPH [address] [place] [phone] [email or web address] Neurology 02/01/25 Sabi Oconnell RN [address] [place] [phone] [email or web address] Primary Infusion Nurse 02/24/25 documented as of this encounter Additional Source Comments The information contained in this document represents components of the legal health record. It is not the complete legal health record[facility]
--- OUTSIDE RECORDS SUMMARY | 2025-03-01 16:53 | XMS_ITS | Encounter Summary ---
Author Organization [facility] Address [address] [facility] [address] [place] [phone] Phone Care Team Providers Care Parent Aide Name Role Phone Self-Referred, Patient Unavailable Unavailab Lucio Arora MD Primary Care Provider [phone] Meghna Galeano MD, MPH Unavailable Swapna Douglas Primary Care Provider [phone] Sabi Oconnell RN Unavailable Vicki [email or web address] Encounter Details Date Type Department Care Team (Late st Contact Info) Description 01/13/2025 Procedure Pass [facility] Periop [address] [place] [address] Social History Tobacco Use Types Packs/Day Years [...] high school, GED, job training, learning the Georgian language, technical skills, or developing parenting skills)? [...] 4:00 AM EDT Bev Harrell RN * [place] Suicide Severity Rating Scale (Screener/Recent Self-Report) Question [...] st Contact Info) Description 02/22/2025 Procedure Pass [facility] Team Leader [place] [address] [place] [address] 03/04/2025 6:30 AM EDT Blood Draw [facility], [address], [address] [place], [place] Meghna Galeano MD, MPH [address] [place] [phone] Luis@[facility] 03/04/2025 7:30 AM EDT Office Visit [facility], [address] [place] [address] Gil Kiran PA-C [address] [place] [phone] Nadine@[email or web address]. [facility], [facility] 03/04/2025 7:30 AM EDT Nurse Only [facility], [address], [address] [place] [address] Meghna Galeano MD, MPH [address] [place] [phone] Luis@[facility] 03/04/2025 8:30 AM EDT Infusion [facility] [address] [address] Meghna Galeano MD, MPH [address] [place] [phone] Luis@[facility] Elvia Humphrey RN [address] [place] [phone] ELEANOR@[facility] 03/05/2025 9:00 AM EDT Nurse Only [facility], [address] [address] Meghna Galeano MD, MPH [address] [place] [phone] Luis@[facility] Aaron Sherwood RN [address] [place] [phone] [email or web address] 03/05/2025 9:00 AM EDT Infusion [facility] [address] [address] Meghna Galeano MD, MPH [address] [place] [phone] Luis@[facility] Daniela Freire RN [address] [place] [phone] Juanito@[facility] 03/09/2025 8:30 AM EDT Nurse Only [facility], [address] [place] [address] Meghna Galeano MD, MPH [address] [place] [phone] Luis@[facility] 03/09/2025 8:30 AM EDT Infusion [facility] [address] [place] [address] Meghna Galeano MD, MPH [address] [place] [phone] Luis@[facility] Keira Downey RN [address] [place] [phone] hue@[facility] 03/11/2025 6:50 AM EDT Blood Draw Laboratory Services, [address], [address] [place] [address] Meghna Galeano MD, MPH [address] [place] [phone] Luis@[facility] 03/11/2025 7:30 AM EDT Office Visit [facility], [address], [address] [place] [address] Gil Kiran PA-C [address] [place] [phone] Nadine@[facility] 03/11/2025 7:30 AM EDT Nurse Only [facility], [address], [address] [place] [address] ChuMeghna guevara MD, MPH [address] [place] [phone] Luis@[facility] 03/11/2025 8:30 AM EDT Infusion [facility], [address], [address] [place] [address] Meghna Galeano MD, MPH [address] [place] [phone] Luis@[facility] Sabi Oconnell RN [address] [place] [address] Vicki@[facility] 03/18/2025 7:50 AM EDT Blood Draw [facility], [address], [address] [place] [address] Meghna Galeano MD, MPH [address] [place] [phone] Luis@[facility] 03/18/2025 8:30 AM EDT Office Visit [facility], [address], [address] [place] [address] Gil Kiran PA-C [address] [place] [phone] Nadine@[facility] 03/18/2025 8:30 AM EDT Nurse Only [facility], [address], [address] [place] [address] Meghna Galeano MD, MPH [address] [place] [phone] Luis@[facility] 03/18/2025 9:30 AM EDT Infusion Infusion [facility], [address], [address] [place] [address] Meghna Galeano MD, MPH [address] [place] [phone] Luis@[facility] Rosa Araujo RN [address] [place] [address] Luis@[facility] 03/25/2025 6:30 AM EDT Blood [facility], [address], [address] [place] [address] Meghna Galeano MD, MPH [address] [place] [phone] Luis@[facility] 03/25/2025 7:30 AM EDT Office Visit [facility], [address], [address] [place] [address] Gil Kiran PA-C [address] [place] [phone] Nadine@[facility] 03/25/2025 7:30 AM EDT Nurse Only [facility], [address], [address] [place] [address] Meghna Galeano MD, MPH [address] [place] [phone] Luis@[facility] 03/25/2025 8:30 AM EDT Infusion Infusion Therapy [facility], [address], [address] [place] [address] Meghna Galeano MD, MPH [address] [place] [phone] Luis@[facility] Giselle Morgan RN [address] [place] [phone] CHOLO@ [facility] 04/01/2025 7:50 AM EST [facility], [address], [address] [place] [address] Meghna Galeano MD, MPH [address] [place] [phone] Luis@[facility] 04/01/2025 8:30 AM EST Office [facility], [address], [address] [place] [address] Gil Kiran PA-C [address] [place] [phone] Nadine@[facility] 04/01/2025 8:30 AM EST Nurse Only [facility], [address], [address] [place] [address] Meghna Galeano MD, MPH [address] [place] [phone] Luis@[facility] 04/01/2025 9:30 AM EST Infusion In[facility], [address], [address] [place] [address] Meghna Galeano MD, MPH [address] [place] [phone] Luis@[facility] Juanita Perez, CHIVO [address] [place] [address] Gallo@[facility] 04/08/2025 6:30 AM EST Blood Draw Laboratory Services, [facility] [address] [facility], [address] [place], [place] Meghna Galeano MD, MPH [address] [place] [phone] Luis@[facility] 04/08/2025 7:30 AM EST Office Visit [facility], [address], [address] [place] [address] Lucio Thorne N.P., SENIOR PACKAGING ENGINEER [address] [place] [address] [place] [address] Alecia@[facility] 04/08/2025 7:30 AM EST Nurse Only [facility], [address], [address] [place] [address] Meghna Galeano MD, MPH [address] [place] [phone] Luis@[facility] 04/08/2025 8:30 AM EST Infusion Infusion Therapy Services [place] , [facility] [address] [facility], [address] [place] [address] Meghna Galeano MD, MPH [address] [place] [phone] Luis@[facility] Rani Garzon RN [address] [place] [address] maria de 04/13/2025 3:20 PM EST Appointment [facility] Team Leader [employer] [address] [place] [address] Meghna Galeano MD, MPH [address] [place] [phone] Luis@[facility] 04/19/2025 10:00 AM EST Telemedicine [facility] Department of Neurosurgery [address] [place] [address] Francesca Mcmahon PA-C [address] [place], [place] [email or web address] [place] documented as of this encounter Visit Diagnoses Not on filedocumented in this encounter Care Teams Parent Aide Relationship Specialty Start Date End Date Lucio Bhatt MD [address] [place] [phone] PCP - General Internal Medicine 08/18/24 01/31/25 Swapna Douglas PA [address] [place] [address] PCP - General Physician Executive Admin 02/01/25 Self-Referred, Patient 08/18/24 Meghna Galeano MD, MPH [address] [place] [phone] Luis@[email or web address]. [facility] Neurology 02/01/25 Sabi Oconnell RN [address] [place] [address] [email or web address] Primary Infusion Nurse 02/24/25 documented as of this encounter Additional Source Comments The information contained in this document represents components of the legal health record. It is not the complete legal health record.[facility]
--- OUTSIDE RECORDS SUMMARY | 2025-03-01 16:53 | XMS_ITS | Clinical Summary ---
Author Organization [facility] Address [address] [place], [place] [id number] Phone Care Team Providers Care Homicide Investigator Name Role Phone Self-Referred, Patient Unavailable Unavailab Meghna Dalton MD, MPH Unavailable Swapna Douglas Primary Care Provider [phone] Sabi Oconnell RN Unavailable [email or web address] Allergies No known active allergies Medications acetaminophen (TYLENOL) 325 mg tablet Take 1,000 mg by mouth daily as needed. 04/07/20 24 Active ALPRAZolam (XANAX) 0.5 MG tabletIndication s:anxiety Take 0.5-1 mg by mouth daily as needed. Indications: anxious 12/11/19 25 Active amLODIPine (NORVASC) 5 MG tablet Take 5 mg by mouth daily. Active losartan (COZAAR) 50 [...] text field) (severe constipation). 01/15/20 25 Active HYDROcodone-acet aminophen (NORCO) 5-325 mg per tablet Take 1 tablet by mouth every 6 (six) hours as needed for pain (specific location in comments). Partial fill ok 15 tablet 01/15/20 25 Active levETIRAcetam (KEPPRA) 750 MG IMMEDIATE release tablet Take 1 tablet (750 mg total) by mouth 2 (two) times a day. 180 tablet 01/27/20 25 Active nicotine polacrilex (COMMIT) [address] 2 mg inside cheek as needed for smoking cessation. Active multivit-mineral s/folic acid (MULTIVITAMIN GUMMIES ORAL) Take by mouth daily. Active aspirin/sod bicarb/citric acid (OBDULIA-SELTZER ORAL) Take by mouth daily as needed. Active HYDROcodone-acet aminophen (NORCO) 5-325 mg per tablet Take 1 tablet by mouth every 6 (six) hours as needed. 12/15/19 25 025 Discontin ued(Dupli erin order) atorvastatin (LIPITOR) 20 MG tablet Take 1 tablet by mouth daily. 025 Discontin ued(No longer taking) oxyCODONE 5 MG immediate release tablet Take 0.5-1 tablets (2.5-5 mg total) by mouth every 6 (six) hours as needed for pain (specific location in comments). Partial fill ok 10 tablet 01/15/20 25 025 Discontin ued(No longer taking) Active Problems Problem Noted Date Diagnosed Date Brain lesion 01/13/2025 Glioblastoma 11/11/2024 Encounters Date Type Department Care Team Description 02/24/2025 1:30 PM EDT Infusion Infusion Therapy [facility] [address]th [place] [address] Meghna Galeano MD, MPH Sabi Oconnell RN Glioblastoma 02/24/2025 12:30 PM EDT Office Visit [facility], [facility] [address], 9th [place] [address] Meghna Galeano MD, MPH Glioblastoma (Primary Dx) 02/24/2025 11:00 AM EDT Nurse Only [facility], [facility] [address]th [place] [address] Zara Escobar, PharmD 02/24/2025 11:00 AM EDT Nurse Only [facility], [facility] [address] [place] [address] Meghna Galeano MD, MPH Glioblastoma 02/24/2025 8:15 AM EDT - 02/24/2025 11:59 PM EDT Hospital Encounter [facility] MR Imaging, Elinor [address] [place] [address] Meghna Galeano MD, MPH Discharge Disposition: Home or Self Care 02/22/2025 Orders Only [facility] [place], [facility] [address] [facility] [place] [address] Meghna Galeano MD, MPH Glioblastoma (Primary Dx) 02/18/2025 Orders Only [facility] [place], [facility] [address] [facility] [place] [address] Meghna Galeano MD, MPH Glioblastoma (Primary Dx) 02/18/2025 Orders Only [facility] [place], [facility] [address] [facility] [place] [address] Meghna Galeano MD, MPH Glioblastoma (Primary Dx); Need for hepatitis B screening test; Need for hepatitis C screening test 02/03/2025 Documentation [facility] [place], [facility] [address] [facility] [place] [address] Katie Zavala, CHIVO Care Coordination 02/01/2025 2:00 PM EDT Telemedicine [facility], [facility] [address] [facility], [address]th [place] [address] ChuMeghna guevaar MD, MPH Glioblastoma (Primary Dx) 02/01/2025 Procedure Pass [facility] MR Imaging, [place] [address] [place] [address] 01/26/2025 Orders Only [facility], [facility] [address] [facility]th [place] [address] Zara Rooney NP 01/21/2025 11:30 AM EDT Office Visit [facility] Department of Neurosurgery [address] [place] [address] Benigno Knapp MD Moran, Christine, PA-C Glioblastoma (Primary Dx) 01/15/[address] [address] Francesca Mcmahon PA-C 01/13/2025 9:30 AM EDT - 01/13/2025 2:14 PM EDT Surgery [facility] Periop [address] [place] [address] Benigno Knapp MD Right craniotomy for tumor resection (MONITORING CONFIRMED FOR 01/13 AT 9:30AM) 01/13/2025 9:24 AM EDT Anesthesia Event [facility] Periop [address] [place] [address] Ariana Monge MD Cavagnaro, Laura Kristen, RN 01/13/2025 7:37 AM EDT - 01/14/2025 2:56 PM EDT Hospital Encounter [facility] 5D [address] [place] [address] Benigno Knapp MD Discharge Disposition: Home or Self Care 01/13/2025 Procedure Pass [facility] Radiology [address] [place] [address] 01/13/2025 Procedure Pass [facility] Periop [address] [place] [address] 01/12/2025 10:24 AM EDT - 01/12/2025 11:59 PM EDT Hospital Encounter [facility] Laboratory [address] [place] [address] Benigno Knapp MD Discharge Disposition: Home or Self Care 01/12/2025 Documentation [facility] Department of Neurosurgery [address] [place] [address] Rosa Garcia, CHIVO 01/11/2025 Documentation [facility] Department of Neurosurgery [address] [place] [address] Rosa Garcia, CHIVO 01/11/2025 Documentation [facility] Department of Neurosurgery [address] [place] [address] Rosa Garcia, CHIVO 01/08/2025 1:07 PM EDT - 01/08/2025 11:59 PM EDT Hospital Encounter [facility], [facility] [address] [place] [address] Discharge Disposition: Home or Self Care 01/08/2025 Orders Only [facility], [address], [address] [place] [address] Meghna Galeano MD, MPH Glioma (Primary Dx) 01/07/2025 3:30 PM EDT Pre-Admission Testing [facility] [address] [facility] [address] [place] [address] Benigno Knapp MD Pre-op evaluation (Primary Dx) 01/01/2025 3:26 PM EDT - 01/01/2025 11:59 PM EDT Hospital Encounter [facility] Anatomic Pathology [address] [place] [address] Discharge Disposition: Home or Self Care 12/31/2024 1:30 PM EDT Telemedicine [facility] [address] [facility], 9th [address], [address] [place] [address] Benigno Knapp MD Glioblastoma (Primary Dx) 12/31/2024 Orders Only [facility] Department of Neurosurgery [address] [place] [address] Benigno Knapp MD 12/30/2024 11:30 AM EDT Office Visit [facility], [address] [place] [address] Meghna Galeano MD, MPH Glioblastoma (Primary Dx) 12/30/2024 7:10 AM EDT - 12/30/2024 11:59 PM EDT Hospital Encounter [facility], MRI [address] [address] Meghna Galeano MD, MPH Discharge Disposition: Home or Self Care 11/11/2024 Procedure Pass [facility], [facility] [address] [address] from Last 3 Months Social History Tobacco Use Types Packs/Day Years Used Date Smoking Tobacco: Former Cigarettes Smokeless Tobacco: Never Tobacco Cessation:Counseling Given: Not Answered Comments:Quit 2016 Uses nicotine gum Alcohol Use [...] high school, GED, job training, learning the Kazakh language, technical skills, or developing parenting skills)? [...] is your housing situation today? I have vestajenn deshpande 01/13/2025 How many times have you [...] 02/24/2025 2:02 PM EDT Inhaled Oxygen Concentration 100% 01/13/2025 1 :35 PM EDT Weight 105.1 kg (231 lb 11.3 oz) 2024 11:40 AM EDT Height 171.2 cm (5' 7.4 ) 02/24/2025 11 :40 AM EDT Body Mass Index 35.86 02/24/2025 11:40 AM EDT Plan of Treatment Upcoming Encounters Date Type Department Care Team (Late st Contact Info) Description 02/22/2025 Procedure Pass [facility] [place] [address] [place] [address] 03/04/2025 6:30 AM EDT Blood Draw Laboratory Services, [address], [address] [place], [place] Meghna Galeano MD, MPH [address] [place] [address] [email or web address]@[email or web address] 03/04/2025 7:30 AM EDT Office Visit [facility] [place], [address] [place] [address] Gil Kiran PA-C [address] [place] [phone] [email or web address] 03/04/2025 7:30 AM EDT Nurse Only [facility] [place], [address], [address] [place] [address] Meghna Galeano MD, MPH [address] [place] [phone] Luis@[facility] 03/04/2025 8:30 AM EDT Infusion Infusion Therapy Services [place] , [address], [address] [place] [address] Meghna Galeano MD, MPH [address] [place] [phone] Luis@[facility] Elvia Humphrey RN [address] [place] [phone] [email or web address] 03/05/2025 9:00 AM EDT Nurse Only [facility] [place], [address], [address] [place] [address] Meghna Galeano MD, MPH [address] [place] [phone] Luis@[facility] Aaron Sherwood, CHIVO [address] [place] [address] [email or web address] 03/05/2025 9:00 AM EDT Infusion Infusion Therapy Services [address], [address] [place] [address] Meghna Galeano MD, MPH [address] [place] [phone] Luis@[facility] Daniela Freire RN [address] [place] [address] [email or web address] 03/09/2025 8:30 AM EDT Nurse Only [facility] [place], [address], [address] [place] [address] Meghna Galeano MD, MPH [address] [place] [address] Luis@[facility] 03/09/2025 8:30 AM EDT Infusion [facility] Services [address], [address] [place] [address] Meghna Galeano MD, MPH [address] [place] [phone] Luis@[facility] Keira Downey RN [address] [place] [phone] [email or web address] 03/11/2025 6:50 AM EDT Blood Draw Laboratory Services, [address], [address] [place] [address] Meghna Galeano MD, MPH [address] [place] [phone] Luis@[email or web address] 03/11/2025 7:30 AM EDT Office Visit [facility] [place], [address] [address] Gil Kiran PA-C [address] [place] [phone] Nadine@[email or web address] 03/11/2025 7:30 AM EDT Nurse Only [facility] [place], [address], [address] [place] [address] Meghna Galeano MD, MPH [address] [place] [phone] Luis@[facility] 03/11/2025 8:30 AM EDT Infusion Infusion Therapy Services [place] [address], [address], [address] [place] [address] Meghna Galeano MD, MPH [address] [place] [phone] Luis@[facility] Sabi Oconnell RN [address] [place] [phone] [email or web address] 03/18/2025 7:50 AM EDT Blood Draw Laboratory Services, [address], [address] [place] [address] Meghna Galeano MD, MPH [address] [place] [phone] Luis@[facility] 03/18/2025 8:30 AM EDT Office Visit [facility] [place], [address], [address] [place] [address] Gil Kiran PA-C [address] [place] [phone] Nadine@[email or web address] 03/18/2025 8:30 AM EDT Nurse Only [facility] [place], [address], [address] [place] [address] Meghna Galeano MD, MPH [address] [place] [phone] Luis@[facility] 03/18/2025 9:30 AM EDT Infusion Infusion Therapy Services [place] [address], [address], [address] [place] [address] Meghna Galeano MD, MPH [address] [place] [phone] Luis@[facility] Rosa Araujo RN [address] [place] [address] Luis@[email or web address] 03/25/2025 6:30 AM EDT Blood Draw Laboratory Services, [address], [address] [place] [address] Meghna Galeano MD, MPH [address] [place] [phone] Luis@[facility] 03/25/2025 7:30 AM EDT Office Visit [facility] [place], [address], [address] [place] [address] Gil Kiran PA-C [address] [place] [phone] Nadine@[email or web address] 03/25/2025 7:30 AM EDT Nurse Only [facility] [place], [address], [address] [place] [address] Meghna Galeano MD, MPH [address] [place] [phone] Luis@[facility] 03/25/2025 8:30 AM EDT Infusion Infusion Therapy Services [address], [address] [place] [address] Meghna Galeano MD, MPH [address] [place] [address] Luis@[facility] Giselle Morgan, RN [address] [place] [phone] [email or web address]@ [email or web address] 04/01/2025 7:50 AM EST Blood Draw Laboratory Services, [address], [address] [place] [address] Meghna Galeano MD, MPH [address] [place] [phone] Luis@[facility] 04/01/2025 8:30 AM EST Office Visit [facility] [place], [address], [address] [place] [phone] Gil Kiran PA-C [address] [place] [address] Nadine@[email or web address] 04/01/2025 8:30 AM EST Nurse Only [facility] [place], [address] [address] Meghna Galeano MD, MPH [address] [place] [phone] Luis@[facility] 04/01/2025 9:30 AM EST Infusion Infusion Therapy Services [address], [address] [place] [address] Meghna Galeano MD, MPH [address] [place] [phone] Luis@[facility] Juanita Perez, CHIVO [address] [place] [address] [email or web address] 04/08/2025 6:30 AM EST Blood Draw Laboratory Services, [address], [address] [place] [address] Meghna Galeano MD, MPH [address] [place] [phone] Luis@[facility] 04/08/2025 7:30 AM EST Office Visit [facility] [place], [address], [address] [place] [address] Lucio Thorne N.P., [employer] [address] [place] [address] [place] [address] [email or web address]@[email or web address] 04/08/2025 7:30 AM EST Nurse Only [facility] [place], [address] [address] Meghna Galeano MD, MPH [address] [place] [address] Luis@[facility] 04/08/2025 8:30 AM EST Infusion Infusion Therapy Services [address], [address] [place] [address] Meghna Galeano MD, MPH [address] [place] [phone] Luis@[facility] Rani Garzon, CHIVO [address] [place] [address] maria de 04/13/2025 3:20 PM EST Appointment [facility] [address] [address] Meghna Galeano MD, MPH [address] [place] [phone] [email or web address]@[email or web address] 04/19/2025 10:00 AM EST Telemedicine [facility] Department of Neurosurgery [address] [place] [address] Francesca Mcmahon PA-C [address] [place] [address] [email or web address] Maintenance Due Date Last Done Comments Adult Td,Tdap Booster 1975 DEPRESSION SCREENING 1987 SMOKING Hx and SMOKELESS TOBACCO SCREENING 10/15/1988 HIV ONE-TIME SCREENING (18-65 YEARS) 10/15/1993 PNEUMOCOCCAL VACCINES (0-49 years) (1 of 2 - PCV) 10/15/1994 COLOGUARD 10/15/2020 COLONOSCOPY 10/15/2020 COLORECTAL CANCER SCREENING 10/15/2020 FIT TEST 10/15/2020 FOBT 10/15/2020 SIGMOIDOSCOPY 10/15/2020 VIRTUAL COLONOSCOPY 10/15/2020 INFLUENZA VACCINE (#1) 2024 COVID-19 VACCINE ( - season) 2025 HEMOGLOBIN A1C 05/29/2025 11/26/2024, 07/11/2024 BLOOD PRESSURE 08/25/2025 02/24/2025 DIABETIC EYE EXAM 12/04/2025 12/04/2024, , 09/27/2023, Additional history exists CREATININE LEVEL 02/24/2026 02/24/2025, , 01/13/2025, Additional history exists POTASSIUM LEVEL 02/24/2026 02/24/2025, 12/26, 01/13/2025, Additional history exists HEPATITIS C SCREENING Completed 02/24/2025, 025 HEPATITIS A VACCINES Aged Out No long [...] this topic Medical Devices Implanted Type Area Computer Operations Analyst Device Identifier Shelf Expiration Date Model / Serial / Lot Graft Tissue 2.0 Oliva Duragen Plus Ultra Pure Collagen Regeneration Matrix Dural Ca/1ea - [id number] Implanted:Qty: 1 on 01/13/2025 by Benigno Knapp MD at [facility] STANDARD Right: Cranial [employer] 07/25/2027 [id number] / / [id number] Titanium Description:In skull Plate In Head Procedures Procedure Name Priority Date/Time Associated Diagnosis Comments BILIRUBIN, DIRECT Routine 02/24/2025 2:1 6 PM EDT Glioblastoma URINALYSIS Routine 02/24/2025 11:28 AM EDT Glioblastoma ECG 12-LEAD Routine 02/24/2025 11:08 AM EDT Glioblastoma PTT Routine 02/24/2025 10:05 AM EDT Glioblastoma PT-INR Routine 02/24/2025 10:05 AM EDT Glioblastoma IRON AND IRON BINDING CAPACITY Routine 02/24/2025 10:05 AM EDT Glioblastoma FERRITIN Routine 02/24/2025 10:05 AM EDT Glioblastoma LDH Routine 02/24/2025 10:05 AM EDT Glioblastoma LIPASE Routine 02/24/2025 10:05 AM EDT Glioblastoma GGT (GAMMA GLUTAMYL TRANSFERASE) Routine 02/24/2025 10:05 AM EDT Glioblastoma C-REACTIVE PROTEIN Routine 02/24/2025 10:05 AM EDT Glioblastoma BILIRUBIN, DIRECT Routine 02/24/2025 10:05 AM EDT Glioblastoma AMYLASE Routine 02/24/2025 10:05 AM EDT Glioblastoma RETICULOCYTES Routine 02/24/2025 10:05 AM EDT Glioblastoma COMPREHENSIVE METABOLIC PANEL Routine 02/24/2025 10:05 AM EDT Glioblastoma HC BLOOD COUNT COMPLETE AUTO&AUTO DIFRNTL WBC Routine 02/24/2025 10:05 AM EDT Glioblastoma HEPATITIS B SURFACE ANTIBODY Routine 02/24/2025 10:05 AM EDT Glioblastoma HEPATITIS C VIRAL LOAD (PCR) Routine 02/24/2025 10:05 AM EDT Glioblastoma HEPATITIS C ANTIBODY, QUALITATIVE Routine 02/24/2025 10:05 AM EDT Glioblastoma HEPATITIS B CORE ANTIBODY, TOTAL Routine 02/24/2025 10:05 AM EDT Glioblastoma HEPATITIS B SURFACE ANTIGEN Routine 02/24/2025 10:05 AM EDT Glioblastoma MRI BRAIN (TUMOR) WITH AND WITHOUT CONTRAST Routine 02/24/2025 8:56 AM EDT Glioblastoma POCT GLUCOSE Routine 01/14/2025 12:30 PM EDT [...] ANATOMIC PATHOLOGY Routine 01/13/2025 12:09 PM EDT OK INSERT CATH ART PERCUT SHORTTERM PERF Routine 01/13/2025 10:21 AM EDT AIRWAY PLACEMENT Routine 01/13/2025 9:54 AM EDT OK EXCIS SUPRATENT BRAIN TUMOR 01/13/2025 9:12 AM [...] ONCOPANEL Routine 01/08/2025 1:08 PM EDT Glioma CLINICAL ONCOPANEL Routine 01/08/2025 12:00 AM EDT MRI BRAIN WITH AND WITHOUT CONTRAST Routine 12/30/2024 8:23 AM EDT Glioblastoma COMPREHENSIVE METABOLIC PANEL Routine 12/30/2024 7:06 AM EDT Glioblastoma HC BLOOD COUNT COMPLETE AUTO&AUTO DIFRNTL WBC Routine 12/30/2024 7:06 AM EDT Glioblastoma from Last 3 Months Results * Bilirubin, direct (02/24/2025 2:16 PM EDT) Only the most recent of2 resultswithin the time period is included. Pathologist [facility] DIRECT BILIRUBIN 0.2 0.0 - 0.3 mg/dL [facility] Blood 02/24/2025 2:16 PM EDT 02/24/2025 2:24 PM EDT Meghna Galeano MD, MPH LAB BLOOD ORDERABLES Final Result [facility] [address] [place] [address] * (ABNORMAL) Urinalysis (02/24/2025 11:28 AM EDT) Pathologist [facility] COLOR LT YELLOW(A) Yellow [facility] CLARITY Clear Clear [facility] GLUCOSE NORMAL NORMAL [facility] BILI Negative Negative [facility] KETONES Negative Negative [facility] SPECIFIC GRAVITY 1.015 1.003 - 1.035 [facility] BLOOD Negative Negative [facility] PH 5.5 4.6 - 8.0 [facility] Protein-UA Negative Negative [facility] UROBILINOGEN NORMAL NORMAL [facility] NITRITE Negative Negative [facility] Leukocyte esterase, ur Negative Negative [facility] WBC 1 0 - 9 /hpf [facility] RBC None 0 - 2 /hpf [facility] BACTERIA None None /hpf [facility] Urine (Urine) 02/24/2025 11: 28 AM EDT 02/24/2025 11:44 AM EDT Meghna Galeano MD, MPH URINE ORDERABLES Carlyn l Result Performing Organization Address City/[facility] Co de Phone Number [facility] [address] [place] [address] * ECG 12-LEAD (02/24/2025 11:08 AM EDT) Only the most recent of2 resultswithin the time period is included. Ventricular Rate EKG/MIN 107 BPM [facility] Atrial Rate 107 BPM [facility] OK Interval 162 ms [facility] QRS Duration 78 ms [facility] QT Interval 328 ms [facility] QTC Interval 437 ms [facility] P [place] 44 degrees [facility] R Wave [place] 12 degrees [facility] T Wave [place] 32 degrees [facility] Other 02/24/2025 11:0 8 AM EDT Narrative [facility] - 02/25/2025 10:07 PM EDT Sinus tachycardia Otherwise normal ECG No previous ECGs available Meghna Galeano MD, MPH ECG ORDERABLES Final Result Performing Organization Address City/[facility] Co de Phone Number [facility] * Reticulocytes (02/24/2025 10:05 AM EDT) RETIC (%) 1.9 0.7 - 2.5 % [facility] RETIC (ABSOLUTE) 0.0922 0.0315 - 0.1600 M/uL [facility] RETIC HGB EQUIV 34.6 28.6 - 36.2 pg [facility] Blood 02/24/2025 10:0 5 AM EDT 02/24/2025 10:10 AM EDT Meghna Galeano MD, MPH LAB BLOOD ORDERABLES Final Result Performing Organization Address [facility] de Phone Number [facility] [address] [place] [address] * LDH (02/24/2025 10:05 AM EDT) Pathologist [facility] LDH 204 135 - 225 U/L [facility] Comment:INTERPRET WITH CAUTI ON, SPECIMEN HEMOLYZED Blood 02/24/2025 10:0 5 AM EDT 02/24/2025 10:10 AM EDT Meghna Galeano MD, MPH LAB BLOOD ORDERABLES Final Result Performing Organization Address [facility] de Phone Number [facility] [address] [place] [phone] * (ABNORMAL) Comprehensive metabolic panel (02/24/2025 10:05 AM EDT) Only the most recent of2 resultswithin the time period is included. Pathologist [facility] SODIUM 138 136 - 145 mmol/L [facility] POTASSIUM 4.0 3.4 - 5.1 mmol/L [facility] CHLORIDE 102 98 - 107 mmol/L [facility] CO2 21(L) 22 - 31 mmol/L [facility] BUN 12 6 - 23 mg/dL [facility] CREATININE 0.70 0.50 - 1.20 mg/dL [facility] CLINICAL LABORATORY GLUCOSE 130(H) 70 - 100 mg/dL [facility] CL[facility]ICAL LABORATORY ALBUMIN 4.8 3.5 - 5.2 g/dL [facility] TOTAL PROTEIN 7.3 6.4 - 8.3 g/dL [facility] CALCIUM 9.8 8.8 - 10.7 mg/dL [facility] ALKALINE PHOSPHATASE 68 40 - 129 U/L [facility] TOTAL BILIRUBIN 0.8 0.2 - 1.2 mg/dL [facility] CL[facility]ICAL LABORATORY AST 33 <41 U/L [facility] CLINICAL LABORATORY ALT 54(H) <42 U/L [facility] CLINICAL LAB[facility]ATORY GLOBULIN 2.5 2.3 - 4.2 g/dL [facility] EGFR 113 >59 mL/min/1.7 3m2 [facility] Comment:Estimated glomerular filtration rate calculated using the CKD-EPI refit equation. ANION GAP 15 7 - 17 mmol/L [facility] LAB[facility] Blood 02/24/2025 10:0 5 AM EDT 02/24/2025 10:10 AM EDT us Meghna Galeano MD, MPH LAB BLOOD ORDERABLES Final Result Performing Organization Address City/[facility] Co de Phone Number [facility] CLINICAL LABORATORY [address] [place] [address] * Hepatitis C antibody, qualitative (02/24/2025 10:05 AM EDT) Pathologist [facility] HCV Nonreactive Nonreactive [facility] Comment:Antibodies to HCV no t detected. Does not exclude the possibility of exposure to HCV. Blood 02/24/2025 10:0 5 AM EDT 02/24/2025 10:10 AM EDT us Meghna Galeano MD, MPH LAB BLOOD ORDERABLES Final Result Performing Organization Address City/[facility] Co de Phone Number [facility] [address] [place] [address], [facility] * Iron and iron binding capacity (02/24/2025 10:05 AM EDT) IRON 95 59 - 158 ug/dL [facility] CLINICAL LABORATORY IRON BINDING CAPACITY 372 220 - 460 ug/dL [facility] CLINICAL LABORATORY TRANSFERRIN SATURAT. 26 14 - 50 % [facility] Blood 02/24/2025 10:0 5 AM EDT 02/24/2025 10:10 AM EDT us Meghna Galeano MD, MPH LAB BLOOD ORDERABLES Final Result Performing Organization Address [facility]/ZIP Co de Phone Number [facility] CL[facility] LAB[facility]ATORY [address] [place] [address] * Hepatitis B core antibody, total (02/24/2025 10:05 AM EDT) Pathologist [facility] HEP B CORE AB, TOT Nonreactive Nonreactive [facility] Comment:Antibodies to HBc we re not detected, does not exclude the possibility of exposure to HBV. Blood 02/24/2025 10:0 5 AM EDT 02/24/2025 10:10 AM EDT us Meghna Galeano MD, MPH LAB BLOOD ORDERABLES Final Result Performing Organization Address [facility] Co de Phone Number [facility] [address] * Hepatitis C viral load (PCR) (02/24/2025 10:05 AM EDT) Pathologist [facility] HCV RNA DETECT/QNT Undetected Undetected IU/mL [facility] Comment: (NOTE) Result in log IU/mL is Undetected. ADDITIONAL INFORMATION The quantification range of this assay is 15 to 100,000,000 IU/mL (1.18 log to 8.00 log IU/mL). Testing was performed using the rayray HCV test ([employer] Blood (Blood) 02/24/2025 10: 05 AM EDT 02/24/2025 10:10 AM EDT us Meghna Galeano MD, MPH NON CULTURE MICROBIOL OGY Final Result Performing Organization Address [facility] Co de Phone Number [facility]PATH [address] [place] [address] * Hepatitis B surface antibody (02/24/2025 10:05 AM EDT) HBSAB 210.80 mIU/mL [facility] Comment: Reactive (>=10 mIU/ml) Individual is considered immune to HBV infection. Blood 02/24/2025 10:0 5 AM EDT 02/24/2025 10:10 AM EDT Meghna Galeano MD, MPH LAB BLOOD ORDERABLES Final Result Performing Organization Address [facility] de Phone Number [address] * Hepatitis B surface antigen (02/24/2025 10:05 AM EDT) HBV SURFACE ANTIGEN Nonreactive Nonreactive [facility] Comment:HBsAg not detected , does not exclude the possibility of exposure to HBV. Blood 02/24/2025 10:0 5 AM EDT 02/24/2025 10:10 AM EDT Meghna Galeano MD, MPH LAB BLOOD ORDERABLES Final Result Performing Organization Address [facility] de Phone Number [address] * GGT (Gamma glutamyl transferase) (02/24/2025 10:05 AM EDT) GGT 37 8 - 61 U/L [facility] CLINICAL LABORATORY Blood 02/24/2025 10:0 5 AM EDT 02/24/2025 10:10 AM EDT Meghna Galeano MD, MPH LAB BLOOD ORDERABLES Final Result Performing Organization Address [facility] de Phone Number [facility] CL[facility] LABORATORY [address] [place] [address] * PTT (02/24/2025 10:05 AM EDT) Only the most recent of3 resultswithin the time period is included. Pathologist [facility] APTT 30.1 22.7 - 35.9 sec [facility] Blood 02/24/2025 10:0 5 AM EDT 02/24/2025 10:10 AM EDT Meghna Galeano MD, MPH LAB BLOOD ORDERABLES Final Result Performing Organization Address [facility] de Phone Number [facility] [address] [place] [address] * PT-INR (02/24/2025 10:05 AM EDT) Only the most recent of3 resultswithin the time period is included. [facility] PT 12.4 12.1 - 14.8 sec [facility] INR 0.9 0.9 - 1.1 [facility] Blood 02/24/2025 10:0 5 AM EDT 02/24/2025 10:10 AM EDT Meghna Galeano MD, MPH LAB BLOOD ORDERABLES Final Result Performing Organization Address [facility] Co de Phone Number [facility] [address] [place] [address] * CBC and differential (02/24/2025 10:05 AM EDT) Only the most recent of2 resultswithin the time period is included. Pathologist [facility] WBC 6.99 4.00 - 10.00 K/uL [facility] RBC 4.88 4.50 - 6.40 M/uL [facility] HGB 14.3 13.5 - 18.0 g/dL [facility] HCT 42.4 40.0 - 54.0 % [facility] CL[facility] LABORAT[facility] PLT 287 150 - 450 K/uL [facility] MCV 86.9 80.0 - 100.0 fL [facility] MCH 29.3 27.0 - 32.0 pg [facility] MCHC 33.7 32.0 - 36.0 g/dL [facility] RDW 11.9 11.5 - 14.5 % [facility] MPV 9.2 8.4 - 12.0 fL [facility] NRBC 0.00 0 /100 WBCs [facility] CL[facility] LABORATORY ABSOLUTE NRBC 0.00 0 K/uL [facility] LAB[facility] DIFF [employer] [facility] NEUTS 65.4 48.0 - 76.0 % [facility] LAB[facility] LYMPHS 18.7 18.0 - 41.0 % [facility] MONOS 9.6 4.0 - 11.0 % [facility] EOS 4.7 0.0 - 5.0 % [facility] BASOS 0.7 0.0 - 1.5 % [facility] % IMMATURE GRANS 0.9 0.0 - 1.0 % [facility] ABSOLUTE NEUTS 4.57 1.92 - 7.60 K/uL [facility] ABSOLUTE LYMPHS 1.31 0.72 - 4.10 K/uL [facility] ABSOLUTE MONOS 0.67 0.16 - 1.10 K/uL [facility] ABSOLUTE EOS 0.33 0.00 - 0.50 K/uL [facility] ABSOLUTE BASOS 0.05 0.00 - 0.15 K/uL [facility] ABS IMMATURE GRANS 0.06 0.00 - 0.10 K/uL [facility] Blood 02/24/2025 10:0 5 AM EDT 02/24/2025 10:10 AM EDT us Meghna Galeano MD, MPH LAB BLOOD ORDERABLES Final Result Performing Organization Address [facility] de Phone Number [facility] [address] [place] [address] * C-Reactive Protein (02/24/2025 10:05 AM EDT) C REACTIVE PROTEIN 1.1 0.0 - 10.0 mg/L [facility] Blood 02/24/2025 10:0 5 AM EDT 02/24/2025 10:10 AM EDT us Meghna Galeano MD, MPH LAB BLOOD ORDERABLES Final Result Performing Organization Address [facility] Phone Number [facility] [address] [place] [phone] * Lipase (02/24/2025 10:05 AM EDT) LIPASE 19 13 - 60 U/L [facility] Blood 02/24/2025 10:0 5 AM EDT 02/24/2025 10:10 AM EDT us Meghna Galeano MD, MPH LAB BLOOD ORDERABLES Final Result Performing Organization Address [facility] de Phone Number [facility] [address] [place] [address] * Ferritin (02/24/2025 10:05 AM EDT) FERRITIN 207 30 - 400 ug/L [facility] Blood 02/24/2025 10:0 5 AM EDT 02/24/2025 10:10 AM EDT us Meghna Galeano MD, MPH LAB BLOOD ORDERABLES Final Result Performing Organization Address [facility]/State/ZIP Co de Phone Number [facility] [address] [place] [address] * Amylase (02/24/2025 10:05 AM EDT) AMYLASE 45 28 - 100 U/L [facility] Blood 02/24/2025 10:0 5 AM EDT 02/24/2025 10:10 AM EDT us Meghna Galeano MD, MPH LAB BLOOD ORDERABLES Final Result [facility] [address] [place] [address] * MRI BRAIN (TUMOR) WITH AND WITHOUT CONTRAST (02/24/2025 8:56 AM EDT) MGB IMG ASSISTANT NURSE MANAGER COMMENT No solid enhancing foci at the anterior border of the postop cavity worrisome for recurrent disease. [facility] Anatomical Region Laterality Modality Head Magnetic Resonan ce 02/24/2025 9:41 AM EDT Impressions 02/24/2025 9:51 AM EDT Solid enhancing foci at the superior and inferior anterior border of the postop cavity with associated elevated CBV worrisome for recurrent disease. Slight increase in extra-axial collection on the right. A clinically significant result was initiated on 02/24/2025 9:51 AM, Message ID [id number]. Narrative 02/24/2025 9:51 AM EDT MRI BRAIN [...] clinician's provided indication for this examination in [facility]: *Anaplastic gliomas/glioblastoma, monitor (Age 19-70y) TECHNIQUE: Multi-sequence, [...] was initiated on 02/24/2025 9:51 AM,Message ID [id number]. Meghna Galeano MD, MPH IMG MR HEAD/NECK Carlyn l Result * (ABNORMAL) POCT Glucose (01/14/2025 12:30 PM EDT) Only the most recent of6 resultswithin the time period is included. Glucose, POCT 209(H) 70 - 100 mg/dL [facility] NURSING DEPARTMENT 01/14/2025 12:3 0 PM EDT 01/14/2025 12:33 PM EDT Benigno Knapp MD POINT OF CARE TEST ORDERABLES Fi nal Result Performing Organization Address [facility] Co de Phone Number [facility] NURSING DEPARTMENT [address] [place] [phone] * (ABNORMAL) CBC (01/14/2025 7:31 AM EDT) Only the most recent of2 resultswithin the time period is included. WBC 11.94(H) 4.00 - 11.00 K/uL [facility] RBC 4.36(L) 4.50 - 5.90 M/uL [facility] HGB 13.0(L) 13.5 - 17.5 g/dL [facility] HCT 39.1(L) 41.0 - 53.0 % [facility] PLT 322 150 - 450 K/uL [facility] MCV 89.7 80.0 - 100.0 fL [facility] MCH 29.8 27.0 - 31.0 pg [facility] MCHC 33.2 32.0 - 36.0 g/dL [facility] RDW 13.3 11.5 - 14.5 % [facility] MPV 8.9 8.4 - 12.0 fL [facility] NRBC 0.00 0.00 /100 WBCs [facility] ABSOLUTE NRBC 0.00 0.00 K/uL [facility] Blood 01/14/2025 7:31 AM EDT 01/14/2025 7:59 AM EDT Benigno Knapp MD LAB BLOOD ORDERABLES Final Resul t Performing Organization Address [facility] Co de Phone Number [facility] [address] [place] [address] * Magnesium (01/14/2025 7:31 AM EDT) MAGNESIUM 1.8 1.7 - 2.6 mg/dL [facility] Blood 01/14/2025 7:31 AM EDT 01/14/2025 7:59 AM EDT Benigno Knapp MD LAB BLOOD ORDERABLES Final Resul t Performing Organization Address City/[facility]/ZIP Co de Phone Number [facility] [address] [place] [address] * (ABNORMAL) Basic metabolic panel (01/14/2025 7:31 AM EDT) Only the most recent of2 resultswithin the time period is included. SODIUM 139 136 - 145 mmol/L [facility] POTASSIUM 4.0 3.4 - 5.1 mmol/L [facility] CHLORIDE 104 98 - 107 mmol/L [facility] CO2 25 22 - 31 mmol/L [facility] BUN 6 6 - 23 mg/dL [facility] CREATININE 0.62 0.50 - 1.20 mg/dL [facility] GLUCOSE 178(H) 70 - 100 mg/dL [facility] CALCIUM 9.0 8.8 - 10.7 mg/dL [facility] EGFR 117 >59 mL/min/1.7 3m2 [facility] Comment:Estimated glomerular filtration rate calculated using the CKD-EPI refit equation. ANION GAP 10 7 - 17 mmol/L [facility] Blood 01/14/2025 7:31 AM EDT 01/14/2025 7:59 AM EDT us Benigno Knapp MD LAB BLOOD ORDERABLES Final Resul t [facility] [address] [place] [address] * MRI BRAIN WITH AND WITHOUT CONTRAST [...] indication for this examination in Epic: * Brain mass or lesion Review of [...] provided indication for this examination in Epic: *Brain mass or lesion Review of the [...] intraventricular blood products. No evidence ofhydrocephalus. ATTESTATION: Pantera Stafford, as teaching physician have reviewed theimages, if any, for this patient's exam, and if necessary, have edited thereport originally created by Latasha Colmenares. Benigno Knapp MD IMG MR HEAD/NECK Final Result * Anatomic Pathology (01/13/2025 12:09 PM EDT) 01/13/2025 12:0 9 PM EDT 01/13/2025 12:30 PM EDT Narrative [facility] - 02/05/2025 2:09 PM EDT CASE: [id number] PATIENT: MÓNICA HURST Date: 1975 Sex: Male [facility] Department of Pathology [address] [place] [address] License No.: [id number] Stock Car Driver: Dr. Joe Belcher M.D., Ph.D. Physician: BENIGNO KNAPP MD Procedure Date: 01/13/2025 Addended Report Resident: Domenico Whitfield M.D., Ph.D. Pathologist: Dimas [...] infiltrates brain parenchyma Prior specimen was reviewed: [id number] The tumor's histologic appearance compared to the [...] specimen: Unmethylated OncoPanel: Performed on previous specimen: [id number] CLINICAL DATA: History: Brain tumor. Operation: Right [...] fragment (1.2 x 0.7 x 0.4 cm). Mechanical System Technician sections are frozen for FSA and allocated [...] on Saturday January 18, 2025 at 01:01:22PM ADDENDUM: Results of MGMT testing was performed previously, and the tumor is UNMETHYLATED. 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 EGFR p.A289V and p.A289T Biallelic PIK3R1 inactivation (PIK3R1 p.Z111Uuk*28 and p.C825Lep*15) EGFR amplification with vIII variant CDKN2A/CDKN2B two copy loss MTAP single copy loss Polysomy 7 Monosomy 10 Negative for IDH1/IDH2 mutations Negative for 1p/19q co-deletion Addendum #1 by Jassi Flowers M.D., Ph.D., Electronically signed on Wednesday February 05, 2025 at 02:09:25PM us Benigno Knapp MD PATHOLOGY ORDERABLES Edited Resu lt - Final [facility] [address] [place] [address] * OK INSERT CATH ART PERCUT SHORTTERM PERF (01/13/2025 10:21 AM EDT) An Johnson MD - 01/13/2025 10:21 AM EDT An Holden MD 01/13/2025 10:21 AM Arterial Line Placement Procedure Note: Start Time 01/13/2025 9:28 AM: Location: PACU Procedure performed by: anesthesiologist, fellow/resident/RANGE MANAGEMENT SPECIALIST and other anesthesia staff Anesthesiologist: Ariana Monge MD Fellow/Resident/RANGE MANAGEMENT SPECIALIST: An Holden MD Other Anesthesia Staff: Mari Galarza MD, MS Indication(s): hemodynamic monitoring and frequent labs [place] Protocol performed: consent obtained, patient identified with [...] band removed? No us Ariana Monge MD [place] ANESTHESIA Final Res ult * ANES ETT DOUBLE LUMEN - AIRWAY LDA (01/13/2025 9:54 AM EDT) An Johnson MD - 01/13/2025 9:54 AM EDT An Holden MD 01/13/2025 10:23 AM Airway Placement Procedure Note: Patient was not difficult to intubate. Procedure performed by: fellow/resident/RANGE MANAGEMENT SPECIALIST and anesthesiologist Anesthesiologist: Ariana Monge MD Fellow/Resident/RANGE MANAGEMENT SPECIALIST: An Holden MD Airway procedure initiated at:01/13/2025 [...] Complications observed? no us Ariana Monge MD [place] ANESTHESIA Final Res ult * Type and Screen (ABO,Rh,Antibody Screen) (01/12/2025 10:25 AM EDT) Expiration Date of Sample 02/02/2025 11:59 PM 01/12/2025 11:06 PM EDT [facility] Resulting Agency [facility] ABO Type O 01/12/2025 11:06 PM EDT [facility] Rh Type Positive 01/12/2025 11:06 PM EDT [facility] Antibody Screen Negative 01/12/2025 11:06 PM EDT [facility] 01/12/2025 10:2 5 AM EDT 01/12/2025 10:31 AM EDT us Benigno Knapp MD BLOOD BANK TEST ORDERABLES Final Result [facility] [address] [place] [phone] * Oncopanel (01/08/2025 1:08 PM EDT) Specimen Status Request received [facility] Report Status SEE PATHOLOGY REPORT [facility] Other 01/08/2025 1:08 PM EDT 01/08/2025 1:10 PM EDT us Meghna Galeano MD, MPH NON SCHEDULABLE PATHO LOGY Final Result [facility] [address] [place] [address] * Clinical Oncopanel (01/08/2025 12:00 AM EDT) 01/08/2025 01/27/2025 Narrative [facility] - 02/05/2025 2:06 PM EDT CASE: [id number] PATIENT: MÓNICA HURST Date: 1975 Sex: Male [facility] Department of Pathology [address] [place] [address] CLIA License No.: [id number] Stock Car Driver: Dr. Zully Bolivar Physician: MEGHNA GALEANO MD, MPH Specimen Submitted: Molecular Procedure Date: 01/08/2025 Pathologist: Jassi Flowers M.D., Ph.D. CLINICAL DATA: Clinical Diagnosis: ==== ONCOPANEL ==== Accession numbers on blocks submitted - [id number] (A1) ([id number]) Original Pathologic Diagnosis - GB (Glioblastoma) Estimated percentage of neoplastic cells in submitted specimen - 60% RESULT: Test Description - OncoPanel Version 3.1 PASS There are [id number] aligned, high-quality reads for this tumor specimen with a mean of 254 reads across all targeted exons and 98% of all exons having more than 30 reads. Mutational [place]: Tumor Mutational [place]/Megabase: 6.844 This is higher than 71% of all Glioma cases sequenced by this version of OncoPanel. This is higher than 56% of all Profile cases sequenced by this version of OncoPanel. ACTIONABLE FINDINGS Mismatch Repair Status: Proficient (MMR-P / SHARON) Mutations: Tier 1 variants: None identified. Tier 2 variants: EGFR c.865G>A (p.A289T), exon 7 - in 6% of 1169 reads# EGFR c.866C>T (p.A289V), exon 7 - in 14% of 1162 reads# Structural Variants: Tier 1 variants: None identified. Tier 2 variants: None identified. Copy Number Variants: Cytoband/Size Type of Alteration Genes 7 Focal event Amplification EGFR (estimated 22 copies) 7 Chromosomal level Gain IKZF1, JAZF1, ETV1, PMS2, RAC1, CARD11, SBDS, CDK6, GUP66S90, CUX1, RINT1, MET, POT1, SMO, BRAF, PRSS1, EZH2, RHEB, XRCC2, PAXIP1 9p21.3 Two copy deletion CDKN2A, CDKN2B 9p21.3 Loss MTAP 10 Chromosomal level Loss LZCMH4T, GATA3, RET, ERCC6, TET1, PRF1, KAT6B, BMPR1A, FAS, KLLN, PTEN, NT5C2, SUFU, SMC3, TCF7L2, HABP2, FGFR2 Pertinent Negatives (Mutations in the following clinically relevant genetic regions were not detected in this sample) Intragenic region: ACVR1 (Codon 328); BRAF (Codons 464, 466, 469, 581, 594, 597, 600, 601); EGFR (Exon: 19, 20; Codon 709, 719, 790, 797, 858, 861); FGFR1 (Codons 546, 656); H3F3A (Codons 27, 34); MIAI9E3B (Codon 27); KANI1U4K (Codon 27); IDH1 (Codon 132); IDH2 (Codons 140, 172); PDGFRA (Codon 842); PIK3CA (Codons 118, 345, 420, 453, 542, 545, 1047) Full Exonic Sequence: CIC, DAXX, MSH6, NF1, DZQ8D3U, TP53 Pertinent Insufficient Coverage (The following clinically relevant genetic regions were not sufficiently assessed in this sample) ATRX(Exon 1); PTEN(Exon 3); RB1(Exon 15) ADDITIONAL FINDINGS: Investigational Mutational Signatures (see methods): Too few mutations detected to perform additional mutational signature analysis. Investigational Variants Mutations: Tier 3 variants: CHEK2 c.[id number] (p.[id number]), exon 11 - in 42% of 255 reads## PIK3R1 c.1032_1035del (p.M618Jbp*28), exon 9 - in 22% of 328 reads## PIK3R1 c.2151_2173del (p.N700Pmv*15), exon 16 - in 11% of 370 reads## Tier 4 variants: JEROD c.1431G>C (p.K477N), exon 10 - in 49% of 356 reads### ERCC1 c.886G>T (p.V296L), exon 10 - in 34% of 178 reads### FANCC c.1544C>G (p.T515S), exon 15 - in 50% of 336 reads### FANCC c.104G>A (p.C35Y), exon 2 - in 15% of 393 reads### FAS c.334+7G>A () - in 47% of 203 reads### Structural Variants: Tier 3 variants: None identified. Tier 4 variants: Deletion - PIK3R1 exon 16 (chr5:[id number]) :: PIK3R1 exon 16 (chr5:[id number]) Copy Number Variants: Cytoband/Size Type of Alteration Genes 6q Arm level Loss PRDM1, ROS1, RSPO3, MYB, TNFAIP3, ESR1, ARID1B, PARK2, QKI 8p11.23 Loss FGFR1, CUSO1C5 6q31-r72.1 Loss WRN, NKX3-1, PTK2B, GATA4, NEIL2 INTERPRETATION: INTEGRATED COMMENT: The findings are consistent with the histologic diagnosis of GLIOBLSTOMA, IDH-WILDTYPE, W.H.O. GRADE 4. DNA VARIANTS EGFR c.866C>T (p.A289V) - #EGFR amplifications, rearrangements, and mutations are common findings in high grade gliomas. This missense variant, c.866C>T (p.A289V), is a missense mutation which has been reported in COSMIC, and is a known to result in constitutive EGFR receptor phosphorylation and activation (PMID: 88151580). Therapeutic inhibition of EGFR is an area of clinical investigation. EGFR c.865G>A (p.A289T) - #EGFR is a ailin-oncogene that participates in signal transduction and multiple intracellular signaling pathways. EGFR amplifications, rearrangements, and mutations are common findings in high grade gliomas. This variant, EGFR c.865G>A (p.A289T), is a missense mutation that occurs at a mutational hotspot in the extracellular domain of EGFR (PMID 10135059). CHEK2 c.1283C>T (p.S428F) - ##CHEK2 (checkpoint kinase 2) is a cell cycle checkpoint regulator in the Fanconi-BRCA DNA damage response pathway. This missense variant, p.S428F, has been shown to alter normal CHEK2 function by in vitro analysis (PMID: 76564349). This variant has been classified as pathogenic, likely pathogenic, and of uncertain significance by multiple submitters in the ClinVar database. The functional significance of this alteration in glioma is not certain. PIK3R1 c.1032_1035del (p.T630Yix*28) - ##PIK3R1 encodes a regulatory subunit of PI3K. Loss of function mutations of PIK3R1 are associated with activation of the PI3K signaling in several tumor types (PMID: 66338230), including 10% of glioblastomas (TCGA). This frameshift variant likely results in loss of function. PIK3R1 c.2151_2173del (p.Z758Kzy*15) - ##PIK3R1 encodes a regulatory subunit of PI3K. Loss of function mutations of PIK3R1 are associated with activation of the PI3K signaling in several tumor types (PMID: 69445415), including 10% of glioblastomas (TCGA). This frameshift variant likely results in loss of function. ### These variants may have a role in cancer biology, or may have shown potential future clinical application in in vitro studies, but as yet no clinical role for this mutation has been established as [id number] in the published medical literature. STRUCTURAL VARIANTS: Deletion - PIK3R1 exon 16 (chr5:[id number]) :: PIK3R1 exon 16 (chr5:[id number]) (see above). COPY NUMBER VARIANTS (CNV): CNV analysis shows: Focal events: EGFR amplification with relative loss of exons 2-7 (EGFR vIII variant) CDKN2A/CDKN2B two copy loss MTAP single copy loss Broad events: Polysomy 7 Monosomy 10 Loss of 6q, 8p Additional Insufficient Coverage (The following genetic regions of interest for investigational purposes were not sufficiently assessed in this sample) ABCB11 (Exon 3); KPXJGQ92 (Exon 19); ASXL1 (Exon 1); TIM (Exon 1); Z9bcu22 (Exon 1); LZNH7N2 (Exon 7); CCNE1 (Exon 2); CDH1 (Exon 1); CDH4 (Exon 1); CDKN1C (Exon 2, 3); CHEK2 (Exon 4, 6, 7); CUX1 (Exon 1); CYLD (Exon 15); DKC1 (Exon 1); DNMT3A (Exon 2); EPCAM (Exon 1); ERBB2 (Exon 1); ERCC1 (Exon 2); ERCC3 (Exon 1); ERCC5 (Exon 5); ETV4 (Exon 2); OLS709V (Exon 4); FANCA (Exon 1); FANCE (Exon 1); FGFR3 (Exon 2); FLT3 (Exon 1); FLT4 (Exon 1, 20); GATA4 (Exon 2); IDH2 (Exon 1); LMO1 (Exon 1); LMO2 (Exon 1); MAP2K2 (Exon 1, 10); MAP2K4 (Exon 1); MAP3K1 (Exon 1); MAX (Exon 2); MED12 (Exon 43); MEF2B (Exon 9); MTA1 (Exon 1, 16); MYB (Exon 1); NKX3-1 (Exon 1); NOTCH1 (Exon 1); NOTCH3 (Exon 1, 24); NTRK1 (Exon 1); NTRK3 (Exon 17); PARK2 (Exon 1); PHOX2B (Exon 3); PMS2 (Exon 15); PTK2B (Exon 18); PTPN11 (Exon 1); RAC1 (Exon 1); RAD50 (Exon 17); RASA1 (Exon 6); RBM10 (Exon 1); RECQL4 (Exon 2); REL (Exon 1, 9); RELA (Exon 1); RET (Exon 1); RICTOR (Exon 19); RPA1 (Exon 1); SDHA (Exon 1); SETD2 (Exon 2); SH2D1A (Exon 4); SLX1A (Exon 1, 3, 4, 6); SLX1B (Exon 1, 2, 3, 6); SLX4 (Exon 8); SMARCE1 (Exon 2); STAG2 (Exon 2); STK11 (Exon 10); SUZ12 (Exon 6, 11); TAL1 (Exon 3); TCF3 (Exon 9); TRIM37 (Exon 10); TSC2 (Exon 4); USP28 (Exon 1); XRCC3 (Exon 6); ZRSR2 (Exon 4) TEST INFORMATION: This test has been validated and performed in a clinical laboratory that is certified by CLIA (CLIA certificate: [id number]), under CLIA guidelines for clinical testing. This test was developed, and its performance characteristics determined by the [facility], [facility]. It has not been cleared or approved by the U.S. Food and Drug Administration. The FDA has determined that such clearance or approval is not necessary. For detailed methodology and protocol, please contact the [facility] ([phone]). LABORATORY METHODS: OncoPanel is a cancer genomic assay designed to detect somatic mutations, copy number variations and structural variants in tumor DNA extracted from fresh, frozen or formalin-fixed paraffin-embedded samples. This assay surveys exonic DNA sequences of 447 cancer genes and 191 regions across 60 genes for rearrangement detection. DNA is isolated from tissue containing at least 20% tumor nuclei and analyzed by massively parallel sequencing using a solution-phase [employer] SureSeKYCK.comt hybrid capture kit and an c-LEcta sequencer. This assay may be performed with tumor only, in which setting likely somatic variants are prioritized for review and interpretation and most germline variants are removed bioinformatically, but a subset of germline variants occurring with the full panel of targeted genes may be included in the report. This assay may also be performed as a Paired Tumor: Germline test, in which case genomic DNA extracted from the patient's blood specimen is sequenced in parallel with the tumor specimen and germline variants detected in the blood specimen are generally excluded from the somatic report. However, germline variants with potential therapeutic importance are reported in the somatic report when they occur in the following genes: ALK, JEROD, BARD1, BRCA1, BRCA2, CHEK2, DICER1, EGFR, KIT, MET, MLH1, MSH2, MSH6, PALB2, PMS2, PTCH1, RB1, RET, TP53 The complete list of 447 genes is as follows: ABCB11,ABL1,ACVR1,AKT1,AKT2,AKT3,ALK,APC,AR,ARAF,HWJJBN02,SCJGYE39,ARID1A,ARID1 B,ARID2,ASXL1,JEROD,ATR,ATRX,AURKA,AURKB,AXIN2,TIM,B2M,BABAM1,BAP1,BARD1,BCL11B,B CL2,BCL2L1,ITQ0K67,BCL6,BCOR,BCORL1,BLM,BMPR1A,BRAF,BRCA1,BRCA2,BRCC3,BRD3,BRD4 ,ZOIE,BRIP1,BUB1B,W36OAB33,Q09PWC83,Z9ABX85,CALR,CARD11,CASP8,IHWK3N7,CBFB,CBL,C BLB,CCND1,CCND2,CCND3,CCNE1,CD274,CD79B,CDC73,CDH1,CDH4,CDK12,CDK4,CDK6,CDK8,CD KN1A,CDKN1B,CDKN1C,CDKN2A,CDKN2B,CDKN2C,CEBPA,CHEK1,CHEK2,CIC,CIITA,COL7A1,CREB BP,CRKL,CRLF2,CRTC1,CSF3R,CTCF,CTLA4,CTNNA1,CTNNB1,CUX1,CXCR4,CYLD,DAXX,DIQWN7Q ,DDB1,DDB2,DDR2,DICER1,DIS3,DIS3L2,DKC1,DMC1,DNMT3A,DOCK8,EGFR,EGLN1,ELANE,EME1 ,ENG,EP300,EPCAM,ERBB2,ERBB3,ERBB4,ERCC1,ERCC2,ERCC3,ERCC4,ERCC5,ERCC6,ERG,ESR1 ,ETV1,ETV4,ETV5,ETV6,EWSR1,EXO1,EXT1,EXT2,EZH2,FAH,TTS265I,FAM46C,FAN1,FANCA,FA NCB,FANCC,FANCD2,FANCE,FANCF,FANCG,FANCI,FANCL,FANCM,FAS,FAT1,FBXW7,FGFR1,FGFR2 ,FGFR3,FGFR4,FH,FLCN,FLT1,FLT3,FLT4,FOXA1,FOXL2,FUS,GALNT12,GATA2,GATA3,GATA4,G ATA6,GBA,GEN1,GLI1,GLI2,GNA11,GNAQ,GNAS,GPC3,GREM1,H19,H3F3A,H3F3B,HABP2,HELQ,H FE,PGUQ5P3E,FWNE7J9V,HMBS,HNF1A,HOXB13,HRAS,ID3,ID4,IDH1,IDH2,IGF1R,IGF2,IKZF1, IL7R,ITK,JAK1,JAK2,JAK3,JAZF1,KAT6A,KAT6B,KCNQ1,KDM5A,KDM5C,KDM6A,KDR,KEAP1,KIF 1B,KIT,KLF2,KLF4,KLLN,KMT2A,KMT2D,KRAS,LIG4,LMO1,LMO2,MAF,MAFB,MAP2K1,MAP2K2,MA P2K4,MAP3K1,MAPK1,MAX,MBD4,MCL1,MCM8,MDM2,MDM4,MECOM,MED12,MEF2B,MEN1,MET,MGA,M ITF,MLH1,MLH3,MPL,MRE11A,MSH2,MSH6,MTA1,MTAP,MTOR,MUS81,MUTYH,MYB,MYBL1,MYC,MYC L1,MYCN,MYD88,NBN,NEIL1,NEIL2,NEIL3,NF1,NF2,NFE2L2,NFKBIA,NFKBIE,NFKBIZ,NKX2-1, NKX3-1,NOTCH1,NOTCH2,NOTCH3,NPM1,NR0B1,NRAS,NRG1,NSD1,NT5C2,NTHL1,NTRK1,NTRK2,N TRK3,OGG1,PALB2,PARK2,PAX5,PAXIP1,PBRM1,EZZW6BW7,PDGFRA,PDGFRB,PHF6,PHOX2B,PIK3 C2B,PIK3CA,PIK3R1,PIM1,PML,PMS1,PMS2,PNKP,POLB,POLD1,POLE,POLH,POLQ,POT1,PPARG, PPM1D,MZW8M6M,PRDM1,PRF1,ADQFJ0D,PRKCI,PRKDC,PRSS1,PTCH1,PTEN,PTK2B,PTPN11,PTPN 14,PVRL4,QKI,RAC1,RAD21,RAD50,RAD51,RAD51C,RAD51D,RAD52,RAD54B,RAF1,GHULAM,RASA1, RB1,RBBP8,RBM10,RECQL4,REL,RELA,RET,RHBDF2,RHEB,RHOA,RHOH,RHOT1,RICTOR,RIF1,RIN T1,RIT1,RMRP,RNF43,RNF8,ROS1,RPA1,RPTOR,RSPO2,RSPO3,RUNX1,GMHS9X8,SBDS,SDHA,SDH AF2,SDHB,SDHC,SDHD,SERPINA1,SETBP1,SETD2,SF3B1,SH2B3,SH2D1A,OPA99A30,HQT71Q4,SL X1A,SLX1B,SLX4,SMAD2,SMAD4,SMARCA4,SMARCB1,SMARCE1,SMC3,SMO,SOCS1,SOS1,SOX2,SOX 9,SPOP,SRSF2,SRY,SS18,STAG2,STAT3,STAT6,STK11,SUFU,SUZ12,TAL1,TAL2,CHELSIE,TCEB1,TC F3,TCF7L2,TDG,TERC,TERT,TET1,TET2,TFE3,TLX3,HNXT011,TMPRSS2,TNFAIP3,TOPBP1,TP53 ,LI38IO3,TRAF3,TRAF7,TRIM37,TSC1,TSC2,TSHR,U2AF1,UBE2T,UIMC1,UROD,USP28,USP8,VE GFA,VHL,WAS,WHSC1,HAKP4R6,WRN,WT1,XPA,XPC,XPO1,XRCC1,XRCC2,XRCC3,XRCC4,XRCC5,XR CC6,YAP1,GTV236,ZNRF3,ZRSR2 191 regions across the following 60 genes are targeted for rearrangement detection: ABL1,ALK,BCL6,BIRC3,BRAF,CBFB,CIC,CIITA,CRTC1,CRTC3,EGFR,ERG,ESR1,ETV4,ETV5,ETV 6,EWSR1,FGFR1,FGFR2,FGFR3,FIP1L1,FOXO1,FUS,JAK2,KMT2A,MET,MYB,MYBL1,NAB2,NCOA2, NPM1,NR4A3,NRG1,NTRK1,NTRK2,NTRK3,NUTM1,AMX648,PDGFB,PDGFRA,PDGFRB,PHF1,PML,PPA RG,RAF1,GHULAM,RELA,RET,ROS1,RSPO2,RSPO3,RUNX1,WGJ16T5,SS18,SUZ12,TMPRSS2,TP53,WW TR1,YAP1,YWHAE INTERPRETIVE METHODS: Somatic genetic alterations in oncogenes and tumor-suppressor genes contribute to the pathogenesis and evolution of human cancers. These alterations can provide diagnostic, prognostic and predictive information and stratify cancers for targeted therapeutic information. We classify these alterations into five tiers using the following guidelines: Tier 1: The alteration has well-established published evidence confirming clinical utility in this tumor type, in at least one of the following contexts: predicting response to treatment with an FDA-approved therapy; strongly supportive in establishing a definitive diagnosis; assessing prognosis; or conferring an inherited increased risk of cancer to this patient and family. Tier 2: The alteration may have clinical utility in at least one of the following contexts: selection of an investigational therapy in clinical trials for this cancer type; limited evidence of prognostic association; supportive of a specific diagnosis; proven association of response to treatment with an FDA-approved therapy in a different type of cancer; or similar to a different mutation with a proven association with response to treatment with an FDA-approved therapy in this type of cancer. Tier 3: The alteration is of uncertain clinical utility, but may have a role as suggested by at least one of the following: demonstration of association with response to treatment in this cancer type in preclinical studies (e.g., in vitro studies or animal models); alteration in a biochemical pathway that has other known, therapeutically-targetable alterations; alteration in a highly conserved region of the protein predicted, in silico, to alter protein function; or selection of an investigational therapy for a different cancer type. Tier 4: The alteration is novel or its significance has not been studied in cancer. For tumor-only analysis, a subset of these alterations likely represent normal germline variants as the assay is not analyzed in conjunction with a matched normal from the same patient. Tier 5: The alteration has been determined to have no clinical utility, either for selecting therapy, assessing prognosis, establishing a diagnosis, or determining hereditary disease risk. These variants are not included in the report. Insufficient Coverage: If specified exon(s) have <50X coverage, that gene for that specific exon is considered to have insufficient coverage. Pertinent Negative: Specified exon(s) or codon(s) of interest for the given panel having sufficient coverage and no variants found. Copy Count Estimation: When the estimated number of copies for a CNV call is calculated as >= 6 copies, the report will include the number of copies instead of reporting high or low amplification. The copy estimate is the average number of copies in the sample, rounded to the nearest whole number, and is not adjusted for subclonal events. Importantly, the estimated copy number is a function of the subjective visual assessment of tumor purity(heterogeneity) made by a pathologist. As such, this copy number is an estimate, with an element of error. Copy number variants are called at the gene level; genes that are not on our assay but are present in the cytoband should not have the same copy alteration inferred. The following formula is used for the calculation, where Noc = Number of Copies, AGCR = Average Gene CopyRatio, and P = Tumor Purity:NoC = (2 * (AGCR -1)/P ) + 2) Tumor mutational burden (TMB): TMB is calculated by determining the number of non-synonymous somatic mutations that occur per megabase of exonic sequence data across all genes on the panel. Measurement of TMB may be less precise in tumors with a very low tumor content and can potentially be affected by the presence of rare germline variants that are not removed by population allele frequency-based filtering. The TMB for a case is reported as a percentile in relation to all prior Profile clinical and research cohort samples sequenced on the current version of [employer], as well as a percentile in relation to all tumors of that specific type. A tumor type-specific percentile is not provided for tumor types that have cumulatively been sequenced less than 10 times due to insufficient data for meaningful comparison. Structural Rearrangements: Svaba and Manta tools were used for detection of structural rearrangements/variations (SVs). Potential rearrangements and insertions/deletions identified by one or both algorithms in 191 DNA gene regions (across 60 genes) were manually reviewed for inclusion in the report. Detection of SVs in DNA is limited and the absence of a rearrangement should not be taken as absolute. Confirmation of the biological activation of a rearrangement using RNA or protein-based testing can be considered. For indel detection, Svaba/Manta thresholds were set to = 15 nucleotides for somatic samples and = 5 nucleotides for germline samples. Mismatch repair (MMR): MMR pathway status is evaluated by determining the number of small insertion/deletion events that occur in homopolymer regions within exonic sequence data across all genes on the panel, using an extension of a method previously developed in our laboratory (J Mol Diagn. 2017;19(1):84-91). Tumors with an elevated number of such events are classified as mismatch repair deficient (MMR-D) or microsatellite instability - high (MSI-H), while tumors with a low burden of such events are classified as mismatch repair proficient (MMR-P) or microsatellite stable (SHARON). In some cases, it may not be possible to make a definitive determination about MMR pathway status. This may be due multiple factors, including low tumor content, suboptimal sequence quality, and the presence of another mutational signature. For these indeterminate cases, orthogonal testing via immunohistochemistry for mismatch repair protein expression or microsatellite instability testing by PCR should be considered. In tumor-only testing, for tumors with 16 or more mutations (9 or more in Tumor-Germline Testing), additional mutational signature analysis is performed based upon the pattern of nucleotide substitutions. Mutational signatures that can be detected using this approach include those associated with DNA damage due to ultraviolet light (UVA) exposure, tobacco smoke exposure, prior treatment with alkylating agents (including temozolomide), impaired POLE DNA polymerase function, and APOBEC enzyme dysregulation. The SignNow mutational signature detection tool is based upon previously published signatures derived from whole exome sequencing data (Cristobal et al. Nature 500:415-21 (2013)) and was refined by training on targeted exome sequencing data (Marie fall al. Nature Medicine 23, 703-713 (2017)). The reported mutational patterns reflect those observed in vitro following exposure to relevant mutagens. The presence of these signatures, as detected by the [employer] mutational signature tool, was further validated against clinicopathologic features in 738 OncoPanel samples including (1) origin at a sun-exposed site, (2) smoking history, (3) prior treatment with temozolomide, (4) concurrent POLE hotspot mutation, or (5) MMR deficiency as detected by OncoPanel. Mutational signature sensitivity ranges from 42 to 82% and specificity from 80 to > 99% relative to matched clinical features. However, extensive functional analysis has not been performed for validation and, therefore, these signatures should be interpreted as observed patterns consistent with the appropriate pathologic mechanism, but not definitive assertions. Failure to detect a mutational signature despite a relevant clinical context may result from low numbers of mutations identified by this targeted assay, low tumor content, and/or alternative mechanisms of tumorigenesis. If the reported mechanism is unexpected (i.e., a UV-signature in tumor arising at a visceral site), an appropriate clinical correlate should be identified before initiating a change in management. REFERENCES: Ray fall al. 2012. High-throughput detection of actionable genomic alterations in clinical tumor samples by targeted, massively parallel sequencing. Cancer Discov. 2(1):82-93. PMID: 00655020 Osmel WILSON et al., 2016. Institutional implementation of clinical tumor profiling on an unselected cancer population. JCI Insight 2016; 1:y37086. PMID: 54577893 Mariposa Haile et al., 2016. Manta: rapid detection of structural variants and indels for germline and cancer sequencing applications. Bioinformatics. 32(8):7044-3785. PMID: 30959512 Henok RUELAS et al., 2017. Validation of OncoPanel: A Targeted Next-Generation Sequencing Assay for the Detection of Somatic Variants in Cancer. Arch Pathol Lab Med. 141(6):751-758. PMID: 26351793 Gucci JOSEPH et al., 2017. Detection of mismatch repair deficiency and microsatellite instability in colorectal adenocarcinoma by targeted next-generation sequencing. J Mol Diag.19:84-91. PMID: 60731926 Epi JOSEPH et al., 2018. SvABA: genome-wide detection of structural variants and indels by local assembly. Genome Res. 28(4):581-591. PMID: 88569557 By his/her signature below, the senior physician certifies that he/she personally reviewed all the laboratory data of the described specimen(s) and rendered or confirmed the diagnosis(es) related thereto. Final Diagnosis by Jassi Flowers M.D., Ph.D., Electronically signed on Wednesday February 05, 2025 at 02:06:32PM us Meghna Galeano MD, MPH PATHOLOGY ORDERABLES Final Result Performing Organization Address City/State/[facility] Co de Phone Number [facility] [address] [place] [address] * MRI BRAIN WITH AND WITHOUT CONTRAST [...] the left mastoid air cells. Procedure Note Sasha, Myron Allen MD - 12/30/2024 MRI BRAIN WITH AND [...] MPH IMG MR HEAD/NECK Carlyn l Result from Last 3 Months [facility] POS EPO [facility] EPO Advance Directives For more information, please contact: [phone] (9AM - 5PM [place], Saturday-Saturday) * Full Code (Latest Code Status on File) Date Activated Date Inactivated Comments 01/13/2025 1:27 PM Question Answer Comments Code Status Confirmed With: Other (specify below ) Care Teams Homicide Investigator Relationship Specialty Start Date End Date Swapna Douglas PA [address] [place] [address] PCP - General Physician [employer] 02/01/25 Self-Referred, Patient 08/18/24 Meghna Galeano MD, MPH [address] [place] [phone] [email or web address] Neurology 02/01/25 Sabi Oconnell, RN [address] [place] [phone] [email or web address] Primary Infusion Nurse 02/24/25 Additional Source Comments The information contained in this document represents components of the legal health record. It is not the complete legal health record.[facility]
--- OUTSIDE RECORDS SUMMARY | 2025-03-01 16:54 | XMS_ITS | Encounter Summary ---
Author Organization [facility] Address [address] [facility] [address] [place] [address] Phone Care Team Providers Care Leather Roller Name Role Phone Self-Referred, Patient Unavailable Unavailab Lucio Arora MD Primary Care Provider [phone] Meghna Galeano MD, MPH Unavailable Swapna Douglas Primary Care Provider [phone] Sabi Oconnell RN Unavailable Vicki @[email or web address] Encounter Details Date Type Department Care Team (Late st Contact Info) Description 09/02/2024 Procedure Pass Delaney Lank Imaging Department, [facility] [place], MRI [address] [address] Social History Tobacco Use Types Packs/Day Years [...] high school, GED, job training, learning the Afghan language, technical skills, or developing parenting skills)? [...] housing situation today? I have vesta deshpande 08/22/2024 How many times have you move [...] Procedure Pass [facility]'s Production Support Manager [place] [address] [place] [address] 03/04/2025 6:30 AM EDT Blood Draw Laboratory Services, [facility] [place] [address] [place] [address], 2nd [place] [address] Meghna Galeano MD, MPH [address] [place] [address] [email or web address] 03/04/2025 7:30 AM EDT Office Visit [facility] [place], [facility] [place] [address] [facility], 6th [place] [address] Gil Kiran PA-C [address] [place] [address] Nadine@[facility] 03/04/2025 7:30 AM EDT Nurse Only [facility] [place], [address] [address] Meghna Galeano MD, MPH [address] [place] [address] Luis@[facility] 03/04/2025 8:30 AM EDT Infusion Infusion Therapy Services [address] [address] Meghna Galeano MD, MPH [address] [place] [address] Luis@[facility] Elvia Humphrey RN [address] [place] [address] ELEANOR@[facility] 03/05/2025 9:00 AM EDT Nurse Only [place] [facility] [place], [address] [address] Meghna Galeano MD, MPH [address] [place] [address] Luis@[facility] Aaron Sherwood, CHIVO [address] [place] [address] [email or web address] 03/05/2025 9:00 AM EDT Infusion Infusion Therapy Services [facility], [address], [address] [place] [address] Meghna Galeano MD, MPH [address] [place] [address] Luis@[facility] Daniela Freire RN [address] [place] [address] Juanito@[facility] 03/09/2025 8:30 AM EDT Nurse Only [facility] [place], [address], [address] [place] [address] Meghna Galeano MD, MPH [address] [place] [address] Luis@[facility] 03/09/2025 8:30 AM EDT Infusion Infusion Therapy Services [place] [address], [address], [address] [place] [address] Meghna Galeano MD, MPH [address] [place] [address] Luis@[facility] Keira Downey RN [address] [place] [address] [email or web address] 03/11/2025 6:50 AM EDT Blood Draw Laboratory Services, [address], [address] [place] [address] Meghna Galeano MD, MPH [address] [place] [address] Luis@[facility] 03/11/2025 7:30 AM EDT Office Visit [facility] [place], [address], [address] [place] [address] Gil Kiran PA-C [address] [place] [address] Nadine@[facility] 03/11/2025 7:30 AM EDT Nurse Only [facility] [place], [address], [address] [place] [address] Meghna Galeano MD, MPH [address] [place] [address] Luis@[facility] 03/11/2025 8:30 AM EDT Infusion Infusion Therapy Services [address], [address] [place] [address] Meghna Galeano MD, MPH [address] [place] [address] Luis@[facility] Sabi Oconnell RN [address] [place] [address] Vicki@[facility] 03/18/2025 7:50 AM EDT Blood Draw Laboratory Services, [address], [address] [place] [address] Meghna Galeano MD, MPH [address] [place] [address] Luis@[facility] 03/18/2025 8:30 AM EDT Office Visit [facility] [place], [address], [address] [place] [address] Gil Kiran PA-C [address] [place] [phone] Nadine@[facility] 03/18/2025 8:30 AM EDT Nurse Only [facility] [place], [address], [address] [place] [address] Meghna Galeano MD, MPH [address] [place] [address] Luis@[facility] 03/18/2025 9:30 AM EDT Infusion Infusion Therapy Services [address], [address] [place] [address] Meghna Galeano MD, MPH [address] [place] [address] Luis@[facility] Rosa Araujo, CHIVO [address] [place] [address] Luis@[facility] 03/25/2025 6:30 AM EDT Blood Draw Laboratory Services, [address], [address] [place] [address] Meghna Galeano MD, MPH [address] [place] [address] Luis@[facility] 03/25/2025 7:30 AM EDT Office Visit [facility] [place], [address], [address] [place] [address] Gil Kiran PA-C [address] [place] [address] Nadine@[facility] 03/25/2025 7:30 AM EDT Nurse Only [facility] [place], [address] [address] Meghna Galeano MD, MPH [address] [place] [address] Luis@[facility] 03/25/2025 8:30 AM EDT Infusion Infusion Therapy Services [address] [address] Meghna Galeano MD, MPH [address] [place] [address] Luis@[facility] Giselle Morgan RN [address] [place] [address] CHOLO@ [facility] 04/01/2025 7:50 AM EST Blood Draw Laboratory Services, [address], [address] [place] [address] Meghna Galeano MD, MPH [address] [place] [address] Luis@[facility] 04/01/2025 8:30 AM EST Office Visit [facility] [place], [address], [address] [place] [address] Gil Kiran PA-C [address] [place] [address] Nadine@[facility] 04/01/2025 8:30 AM EST Nurse Only [place] [place], [facility] [address] [facility], [address]th [place] [address] Meghna Galeano MD, MPH [address] [place] [address] Luis@[facility] 04/01/2025 9:30 AM EST Infusion Infusion Therapy Services [facility], [facility] [address] [facility], [address]th [place] [address] Meghna Galeano MD, MPH [address] [place] [address] Luis@[facility] Juanita Perez, CHIVO [address] [place] [address] Gallo@[email or web address] 04/08/2025 6:30 AM EST Blood Draw Laboratory Services, [address], [address]nd [place] Meghna Galeano MD, MPH [address] [place] [address] Luis@[facility] 04/08/2025 7:30 AM EST Office Visit [facility] [place], [facility] [address] [facility], [address]th [place] [address] Lucio Thorne N.P., LIFE CARE PLANNER [address] [place] [address] [place] [address] Alecia@[facility] 04/08/2025 7:30 AM EST Nurse Only [facility] [place], [address], [address] [place] [address] Meghna Galeano MD, MPH [address] [place] [address] Luis@[facility] 04/08/2025 8:30 AM EST Infusion Infusion Therapy Services [address], [address] [place] [address] Meghna Galeano MD, MPH [address] [place] [address] Luis@[facility] Rani Garzon RN [address] [place] [address] maria de [email or web address] 04/13/2025 3:20 PM EST Appointment [facility]'s Production Support Manager [address] [address] Meghna Galeano MD, MPH [address] [place] [address] Luis@[facility] 04/19/2025 10:00 AM EST Telemedicine [facility] Department of Neurosurgery [address] [place] [address] Francesca Mcmahon PA-C [address] [place] [address] [email or web address].[email or web address] documented as of this encounter Visit Diagnoses Not on filedocumented in this encounter Care Teams Leather Roller Relationship Specialty Start Date End Date Lucio Bhatt MD [address] [place] [phone] PCP - General Internal Medicine 08/18/24 01/31/25 Swapna Douglas PA [address] [place] [address] PCP - General Physician Detective 02/01/25 Self-Referred, Patient 08/18/24 Meghna Galeano MD, MPH [address] [place] [address] Luis@[email or web address]. [facility] Neurology 02/01/25 Sabi Oconnell, RN [address] [place] [address] [email or web address] Primary Infusion Nurse 02/24/25 documented as of this encounter Additional Source Comments The information contained in this document represents components of the legal health record. It is not the complete legal health record.[facility]
--- OUTSIDE RECORDS SUMMARY | 2025-03-01 16:54 | XMS_ITS | Encounter Summary ---
Author Organization [facility] Address [address] [facility] [address] [place] [address] Phone Care Team Providers Care Receiver Setter Name Role Phone Self-Referred, Patient Unavailable Unavailab Meghna Dalton MD, MPH Unavailable [phone] Swapna Douglas Primary Care Provider [phone] Sabi Oconnell RN Unavailable Vicki @[email or web address] Encounter Details Date Type Department Care Team (Late st Contact Info) Description 02/01/2025 Procedure Pass [facility] MR Imaging, [place] [address] [place] [address] Social History Tobacco Use Types Packs/Day Years [...] high school, GED, job training, learning the Nauruan language, technical skills, or developing parenting skills)? [...] Description 02/22/2025 Procedure Pass [facility] Women's Professor Of Biological Sciences [place] [address] [place] [address] 03/04/2025 6:30 AM EDT Blood Draw Laboratory Services, [address], [address] [place] [address] Meghna Galeano MD, MPH [address] [place] [phone] Luis@[facility] 03/04/2025 7:30 AM EDT Office Visit [facility] [place], [address], [address] [place] [address] Gil Kiran PA-C [address] [place] [phone] Nadine@[facility] 03/04/2025 7:30 AM EDT Nurse Only [facility] [place], [address], [address] [place] [address] Meghna Galeano MD, MPH [address] [place] [address] Luis@[facility] 03/04/2025 8:30 AM EDT Infusion Infusion Therapy Services [address], [address] [place] [address] Meghna Galeano MD, MPH [address] [place] [address] Luis@[facility] Elvia Humphrey RN [address] [place] [address] ELEANOR@[facility] 03/05/2025 9:00 AM EDT Nurse Only [facility] [place], [address], [address] [place] [address] Meghna Galeano MD, MPH [address] [place] [address] Luis@[facility] Aaron Sherwood, CHIVO [address] [place] [address] carlos@[facility] 03/05/2025 9:00 AM EDT Infusion Infusion Therapy Services [address], [address] [place] [address] Meghna Galeano MD, MPH [address] [place] [address] Luis@[facility] Daniela Ferire RN [address] [place] [address] Juanito@[facility] 03/09/2025 8:30 AM EDT Nurse Only [facility] [place], [address], [address] [place] [address] Meghna Galeano MD, MPH [address] [place] [address] Luis@[facility] 03/09/2025 8:30 AM EDT Infusion Infusion Therapy Services [place] [address], [address], [address] [place] [address] Meghna Galeano MD, MPH [address] [place] [address] Luis@[facility] Keira Downey RN [address] [place] [address] [email or web address] 03/11/2025 6:50 AM EDT Blood Draw Laboratory Services, [address], [address] [place] [address] Meghna Galeano MD, MPH [address] [place] [address] Luis@[facility] 03/11/2025 7:30 AM EDT Office Visit [facility] [place], [address], [address] [place] [address] Gil Kirna PA-C [address] [place] [address] Nadine@[facility] 03/11/2025 7:30 AM EDT Nurse Only [facility] [place], [address], [address] [place] [address] Meghna Galeano MD, MPH [address] [place] [address] Luis@[facility] 03/11/2025 8:30 AM EDT Infusion Infusion Therapy Services [place] , [address], [address] [place] [address] Meghna Galeano MD, MPH [address] [place] [address] Luis@[facility] Sabi Oconnell RN [address] [place] [address] Vicki@[facility] 03/18/2025 7:50 AM EDT Blood Draw Laboratory Services, [address], [address] [place] [address] Meghna Galeano MD, MPH [address] [place] [address] Luis@[facility] 03/18/2025 8:30 AM EDT Office Visit [facility] [place], [address], [address] [place] [address] Gil Kiran PA-C [address] [place] [address] Nadine@[facility] 03/18/2025 8:30 AM EDT Nurse Only [facility] [place], [address], [address] [place] [address] Meghna Galeano MD, MPH [address] [place] [address] Luis@[facility] 03/18/2025 9:30 AM EDT Infusion Infusion Therapy Services [address], [address] [place] [address] Meghna Galeano MD, MPH [address] [place] [address] Luis@[facility] Rosa Araujo, CHIVO [address] [place] [address] Luis@[facility] 03/25/2025 6:30 AM EDT Blood Draw Laboratory Services, [address], [address] [place] [address] Meghna Galeano MD, MPH [address] [place] [address] Luis@[facility] 03/25/2025 7:30 AM EDT Office Visit [facility] [place], [address], [address] [place] [address] Gil Kiran PA-C [address] [place] [phone] Nadine@[facility] 03/25/2025 7:30 AM EDT Nurse Only [facility] [place], [address], [address] [place] [address] Meghna Galeano MD, MPH [address] [place] [address] Luis@[facility] 03/25/2025 8:30 AM EDT Infusion Infusion Therapy Services [address], [address] [place] [address] Meghna Galeano MD, MPH [address] [place] [address] Luis@[facility] Giselle Morgan, RN [address] [place] [address] CHOLO@ [facility] 04/01/2025 7:50 AM EST Blood Draw Laboratory Services, [address], [address] [place] [address] Meghna Galeano MD, MPH [address] [place] [address] Luis@[facility] 04/01/2025 8:30 AM EST Office Visit [facility] [place], [address], [address] [place] [address] Gil Kiran PA-C [address] [place] [phone] Nadine@[facility] 04/01/2025 8:30 AM EST Nurse Only [facility] [place], [address] [address] Meghna Galeano MD, MPH [address] [place] [address] Luis@[facility] 04/01/2025 9:30 AM EST Infusion Infusion Therapy Services [place] [address] [place] [address], [address] [place] [address] Meghna Galeano MD, MPH [address] [place] [phone] Luis@[facility] Juanita Perez, CHIVO [address] [place] [address] Gallo@[email or web address] beds at the [facility] 04/08/2025 6:30 AM EST Blood Draw Laboratory Services, [address], [address] [place] [address] Meghna Galeano MD, MPH [address] [place] [address] Luis@[facility] 04/08/2025 7:30 AM EST Office Visit [facility] [place], [facility] [address] [facility], [address] [place] [address] Lucio Thorne N.P., LIBRARY SALES CONSULTANT [address] [facility] [place] [address] Alecia@[email or web address] 04/08/2025 7:30 AM EST Nurse Only [facility] [place], [facility] [address] [facility], [address] [place] [address] Meghna Galeano MD, MPH [address] [place] [phone] Luis@[facility] 04/08/2025 8:30 AM EST Infusion Infusion Therapy Services [place] [address], [facility] [address] [facility], [address] [place] [address] Meghna Galeano MD, MPH [address] [place] [phone] Luis@[facility] Rani Garzon RN [address] [place] [address] maria [email or web address] 04/13/2025 3:20 PM EST Appointment [facility] Professor Of Biological Sciences [address] [place] [address] Meghna Galeano MD, MPH [address] [place] [address] Luis@[facility] 04/19/2025 10:00 AM EST Telemedicine [facility] Department of Neurosurgery [address] [place] [address] Francesca Mcmahon PA-C [address] [place] [address] TRESSA@[facility]. [place] documented as of this encounter Visit Diagnoses Not on filedocumented in this encounter Care Teams Receiver Setter Relationship Specialty Start Date End Date Swapna Douglas PA [address] [place] [address] PCP - General Physician Disability Program Navigator 02/01/25 Self-Referred, Patient 08/18/24 Meghna Galeano MD, MPH [address] [place] [address] Luis@[email or web address] Neurology 02/01/25 Sabi Oconnell RN [address] [place] [address] Vicki@[email or web address] Primary Infusion Nurse 02/24/25 documented as of this encounter Additional Source Comments The information contained in this document represents components of the legal health record. It is not the complete legal health record.[facility]
--- OUTSIDE RECORDS SUMMARY | 2025-03-01 16:54 | XMS_ITS | Encounter Summary ---
Author Organization [facility] Address [address] [facility] [address] [place] [address] Phone Care Team Providers Care Roving Sizer Name Role Phone Self-Referred, Patient Unavailable Unavailab Lucio Arora MD Primary Care Provider [phone] Meghna Galeano MD, MPH Unavailable Swapna Douglas Primary Care Provider [phone] Sabi Oconnell RN Unavailable Vicki [email or web address] Encounter Details Date Type Department Care Team (Late st Contact Info) Description 09/02/2024 Procedure Pass [facility] MR Imaging, [place] [address] [place] [address] Social History Tobacco Use Types Packs/Day Years [...] high school, GED, job training, learning the Belgian language, technical skills, or developing parenting skills)? [...] st Contact Info) Description 02/22/2025 Procedure Pass [facility] and Women's Dust Handler [place] [address] [place] [address] 03/04/2025 6:30 AM EDT Blood Draw Laboratory Services, [facility] [place] [address] [place] [address], 2nd [place] [address] Meghna Galeano MD, MPH [address] [place] [address] Luis@[email or web address] 03/04/2025 7:30 AM EDT Office Visit [facility] [place], [facility] [place] [address] [facility], 6th [place] [address] Gil Kiran PA-C [address] [place] [address] Nadine@[facility] 03/04/2025 7:30 AM EDT Nurse Only [facility] [place], [address] [address] Meghna Galeano MD, MPH [address] [place] [address] Luis@[facility] 03/04/2025 8:30 AM EDT Infusion Infusion Therapy Services [place] [address], [address] [address] Meghna Galeano MD, MPH [address] [place] [address] Luis@[facility] Elvia Humphrey RN [address] [place] [address] ELEANOR@[facility] 03/05/2025 9:00 AM EDT Nurse Only [facility] [place], [address] [address] Meghna Galeano MD, MPH [address] [place] [address] Luis@[facility] Aaron Sherwood, CHIVO [address] [place] [address] [email or web address] 03/05/2025 9:00 AM EDT Infusion Infusion Therapy Services [place] [address], [address], [address] [place] [address] Meghna Galeano MD, MPH [address] [place] [address] Luis@[facility] Daniela Freire RN [address] [place] [address] Juanito@[facility] 03/09/2025 8:30 AM EDT Nurse Only [facility] [place], [address], [address] [place] [address] Meghna Galeano MD, MPH [address] [place] [address] Luis@[facility] 03/09/2025 8:30 AM EDT Infusion Infusion Therapy Services [facility], [address], [address] [place] [address] Meghna Galeano MD, MPH [address] [place] [phone] Luis@[facility] Keira Downey RN [address] [place] [address] [email or web address] 03/11/2025 6:50 AM EDT Blood Draw Laboratory Services, [address], [address] [place] [address] Meghna Galeano MD, MPH [address] [place] [address] Luis@[facility] 03/11/2025 7:30 AM EDT Office Visit [facility] [place], [address], [address] [place] [address] Gil Kiran PA-C [address] [place] [address] [email or web address]@[facility] 03/11/2025 7:30 AM EDT Nurse Only [facility] [place], [address], [address] [place] [address] Meghna Galeano MD, MPH [address] [place] [phone] Luis@[facility] 03/11/2025 8:30 AM EDT Infusion Infusion Therapy Services [address], [address] [place] [address] Meghna Galeano MD, MPH [address] [place] [phone] Luis@[facility] Sabi Oconnell RN [address] [place] [address] Vicki@[facility] 03/18/2025 7:50 AM EDT Blood Draw Laboratory Services, [address], [address] [place] [address] Meghna Galeano MD, MPH [address] [place] [address] Luis@[facility] 03/18/2025 8:30 AM EDT Office Visit [place] [facility] [place], [address], [address] [place] [address] Gil Kiran PA-C [address] [place] [address] Nadine@[facility] 03/18/2025 8:30 AM EDT Nurse Only [facility] [place], [address], [address] [place] [address] Meghna Galeano MD, MPH [address] [place] [address] Luis@[facility] 03/18/2025 9:30 AM EDT Infusion Infusion Therapy Services [address], [address] [place] [address] Meghna Galeano MD, MPH [address] [place] [address] Luis@[facility] Rosa Araujo, CHIVO [address] [place] [address] Luis@[facility] 03/25/2025 6:30 AM EDT Blood Draw Laboratory Services, [address], [address] [place] [address] Meghna Galeano MD, MPH [address] [place] [phone] Luis@[facility] 03/25/2025 7:30 AM EDT Office Visit [place] [facility] [place], [address], [address] [place] [address] Gil Kiran PA-C [address] [place] [address] Nadine@[facility] 03/25/2025 7:30 AM EDT Nurse Only [place] [facility] [place], [address] [address] Meghna Galeano MD, MPH [address] [place] [address] Luis@[facility] 03/25/2025 8:30 AM EDT Infusion Infusion Therapy Services [address] [address] Meghna Galeano MD, MPH [address] [place] [address] Luis@[facility] Giselle Morgan RN [address] [place] [address] CHOLO@ [facility] 04/01/2025 7:50 AM EST Blood Draw Laboratory Services, [address], [address] [place] [address] Meghna Galeano MD, MPH [address] [place] [address] Luis@[facility] 04/01/2025 8:30 AM EST Office Visit [place] [facility] [place], [address] [address] Gil Kiran PA-C [address] [place] [address] Nadine@[facility] 04/01/2025 8:30 AM EST Nurse Only [facility] [place], [facility] [address] [facility], [address] [place] [address] Meghna Galeano MD, MPH [address] [place] [address] Luis@[facility] 04/01/2025 9:30 AM EST Infusion Infusion Therapy Services [place] [address], [facility] [address] [facility], [address] [place] [address] Meghna Galeano MD, MPH [address] [place] [address] Luis@[facility] Juanita Perez RN [address] [place] [address] Gallo@[facility] 04/08/2025 6:30 AM EST Blood Draw Laboratory Services, [address], [address] [place], [place] Meghna Galeano MD, MPH [address] [place] [address] Luis@[facility] 04/08/2025 7:30 AM EST Office Visit [facility] [place], [address], [address] [place] [address] Lucio Thorne N.P., RN LACTATION [address] [place] [address] [place] [address] Alecia@[facility] 04/08/2025 7:30 AM EST Nurse Only [place] [facility] [place], [address], [address] [place] [address] Meghna Galeano MD, MPH [address] [place] [address] Luis@[facility] 04/08/2025 8:30 AM EST Infusion Infusion Therapy Services [address] [address], [address] [place] [address] Meghna Galeano MD, MPH [address] [place] [address] Luis@[facility] Rani Garzon RN [address] [place] [address] maria de 04/13/2025 3:20 PM EST Appointment [facility] Women's Dust Handler [address] [address] Meghna Galeano MD, MPH [address] [place] [phone] Luis@[facility] 04/19/2025 10:00 AM EST Telemedicine [facility] Department of Neurosurgery [address] [place] [address] Francesca Mcmahon PA-C [address] [place] [address] [email or web address]. [place] documented as of this encounter Visit Diagnoses Not on filedocumented in this encounter Care Teams Roving Sizer Relationship Specialty Start Date End Date Lucio Bhatt MD [address] [facility] [place] [id number] PCP - General Internal Medicine 08/18/24 01/31/25 Swapna Douglas PA [address] [place] [address] PCP - General Physician Reel Cutter 02/01/25 Self-Referred, Patient 08/18/24 Meghna Galeano MD, MPH [address] [place] [address] [email or web address] Neurology 02/01/25 Sabi Oconnell, RN [address] [place] [address] [email or web address] Primary Infusion Nurse 02/24/25 documented as of this encounter Additional Source Comments The information contained in this document represents components of the legal health record. It is not the complete legal health record.[facility]
--- OUTSIDE RECORDS SUMMARY | 2025-03-01 16:54 | XMS_ITS | Encounter Summary ---
Author Organization [facility] Address [address] [facility] [address] [place] [address] Phone Care Team Providers Care Winder Operator Name Role Phone Self-Referred, Patient Unavailable Unavailab Lucio Arora MD Primary Care Provider [phone] Meghna Galeano MD, MPH Unavailable Swapna Douglas Primary Care Provider [phone] Sabi Oconnell RN Unavailable Vicki @[email or web address] Encounter Details Date Type Department Care Team (Late st Contact Info) Description 11/11/2024 Procedure Pass [facility], MRI [address] [facility] 4th [place] [address] Social History Tobacco Use Types Packs/Day Years [...] high school, GED, job training, learning the Cym[place] language, technical skills, or developing parenting skills)? [...] st Contact Info) Description 02/22/2025 Procedure Pass [facility] and [facility]'s Teacher Assistant [place] [address] [place] [address] 03/04/2025 6:30 AM EDT Blood Draw Laboratory Services, [facility] [place] [address] [place] [address], 2nd [place] [address] Meghna Galeano MD, MPH [address] [place] [address] [email or web address] 03/04/2025 7:30 AM EDT Office Visit [facility] [place], [facility] [place] [address] [facility], 6th [place] [address] Gil Kiran PA-C [address] [place] [address] Nadine@[facility] 03/04/2025 7:30 AM EDT Nurse Only [facility] [place], [address] [address] Meghna Galeano MD, MPH [address] [place] [address] Luis@[email or web address] 03/04/2025 8:30 AM EDT Infusion Infusion Therapy Services [address] [address] Meghna Galeano MD, MPH [address] [place] [address] Luis@[facility] Elvia Humphrey RN [address] [place] [address] ELEANOR@[facility] 03/05/2025 9:00 AM EDT Nurse Only [facility] [place], [address] [address] Meghna Galeano MD, MPH [address] [place] [address] Luis@[email or web address] Aaron Sherwood, CHIVO [address] [place] [address] [email or web address] 03/05/2025 9:00 AM EDT Infusion Infusion Therapy Services [facility], [address], [address] [place] [address] Meghna Galeano MD, MPH [address] [place] [address] Luis@[facility] Daniela Freire RN [address] [place] [address] Juanito@[facility] 03/09/2025 8:30 AM EDT Nurse Only [facility] [place], [address], [address] [place] [address] Meghna Galeano MD, MPH [address] [place] [address] Luis@[facility] 03/09/2025 8:30 AM EDT Infusion Infusion Therapy Services [place] [address], [address], [address] [place] [address] Meghna Galeano MD, MPH [address] [place] [address] Luis@[facility] Keira Downey RN [address] [place] [address] [email or web address] 03/11/2025 6:50 AM EDT Blood Draw Laboratory Services, [address], [address] [place] [address] Meghna Galeano MD, MPH [address] [place] [address] Luis@[facility] 03/11/2025 7:30 AM EDT Office Visit [facility] [place], [address], [address] [place] [address] Gil Kiran PA-C [address] [place] [address] Nadine@[facility] 03/11/2025 7:30 AM EDT Nurse Only [facility] [place], [address], [address] [place] [address] Meghna Galeano MD, MPH [address] [place] [address] Luis@[facility] 03/11/2025 8:30 AM EDT Infusion Infusion Therapy Services [address], [address] [place] [address] Meghna Galeano MD, MPH [address] [place] [address] Luis@[email or web address] Sabi Oconnell RN [address] [place] [address] Vicki@[facility] 03/18/2025 7:50 AM EDT Blood Draw Laboratory Services, [address], [address] [place] [address] Meghna Galeano MD, MPH [address] [place] [address] Luis@[facility] 03/18/2025 8:30 AM EDT Office Visit [facility] [place], [address], [address] [place] [address] Gil Kiran PA-C [address] [place] [address] Nadine@[facility] 03/18/2025 8:30 AM EDT Nurse Only [facility] [place], [address], [address] [place] [address] Meghna Galeano MD, MPH [address] [place] [address] Luis@[facility] 03/18/2025 9:30 AM EDT Infusion Infusion Therapy Services [address], [address] [place] [address] Meghna Galeano MD, MPH [address] [place] [address] Luis@[facility] Rosa Araujo, CHIVO [address] [place] [address] Luis@[facility] 03/25/2025 6:30 AM EDT Blood Draw Laboratory Services, [address], [address] [place] [address] Meghna Galeano MD, MPH [address] [place] [address] Luis@[facility] 03/25/2025 7:30 AM EDT Office Visit [facility] [place], [address], [address] [place] [address] Gil Kiran PA-C [address] [place] [address] Nadine@[facility] 03/25/2025 7:30 AM EDT Nurse Only [facility] [place], [address] [address] Meghna Galeano MD, MPH [address] [place] [address] Luis@[facility] 03/25/2025 8:30 AM EDT Infusion Infusion Therapy Services [address] [address] Meghna Galeano MD, MPH [address] [place] [address] Luis@[email or web address] Giselle Morgan RN [address] [place] [address] CHOLO@ [facility] 04/01/2025 7:50 AM EST Blood Draw Laboratory Services, [address], [address] [place] [address] Meghna Galeano MD, MPH [address] [place] [address] Luis@[facility] 04/01/2025 8:30 AM EST Office Visit [facility] [place], [address], [address] [place] [address] Gil Kiran PA-C [address] [place] [address] Nadine@[facility] 04/01/2025 8:30 AM EST Nurse Only [facility] [place], [facility] [address] [facility], [address] [place] [address] Meghna Galeano MD, MPH [address] [place] [address] Luis@[facility] 04/01/2025 9:30 AM EST Infusion Infusion Therapy Services [facility], [facility] [address] [facility], [address] [place] [address] Meghna Galeano MD, MPH [address] [place] [address] Luis@[email or web address] Juanita Perez, CHIVO [address] [place] [address] Gallo@[email or web address] 04/08/2025 6:30 AM EST Blood Draw Laboratory Services, [address], [address] [place], [place] Meghna Galeano MD, MPH [address] [place] [address] Luis@[email or web address] 04/08/2025 7:30 AM EST Office Visit [facility] [place], [facility] [address] [facility], [address] [place] [address] Lucio Thorne N.P., CONTENT ANALYST [address] [place] [address] [place] [address] Alecia@[facility] 04/08/2025 7:30 AM EST Nurse Only [facility] [place], [address], [address] [place] [address] Meghna Galeano MD, MPH [address] [place] [address] Luis@[facility] 04/08/2025 8:30 AM EST Infusion In[facility] Services [address], [address] [place] [address] Meghna Galeano MD, MPH [address] [place] [address] Luis@[email or web address] Rani Garzon RN [address] [place] [address] maria de [email or web address] 04/13/2025 3:20 PM EST Appointment [facility] and [facility]'s Teacher Assistant [address] [address] Meghna Galeano MD, MPH [address] [place] [address] Luis@[email or web address] 04/19/2025 10:00 AM EST Telemedicine [facility] Department of Neurosurgery [address] [place] [address] Fracnesca Mcmahon PA-C [address] [place] [address] [email or web address]. [facility] documented as of this encounter Visit Diagnoses Not on filedocumented in this encounter Care Teams Winder Operator Relationship Specialty Start Date End Date Lucio Bhatt MD [address] [place] [id number] PCP - General Internal Medicine 08/18/24 01/31/25 Swapna Douglas PA [address] [place] [address] PCP - General Physician Draw Bench Operator 02/01/25 Self-Referred, Patient 08/18/24 Meghna Galeano MD, MPH [address] [place] [address] [email or web address] Neurology 02/01/25 Sabi Oconnell, RN [address] [place] [address] [email or web address] Primary Infusion Nurse 02/24/25 documented as of this encounter Additional Source Comments The information contained in this document represents components of the legal health record. It is not the complete legal health record.[facility]
== END 2025-03-01 15:05 | disposition home or self-care (01) ==
LOC: HO.HMCSH 14:28
PROVIDERS: PCP Physician Assistant Medical; Visit Provider Physician Assistant Medical
DX: C71.9 Malignant neoplasm of brain, unspecified (principal); M25.512 Pain in left shoulder

== ENCOUNTER → 2025-03-01 14:28 | Outpatient (BNVA) | payer OTHER, SELFPAY | PROVIDERS: PCP Physician Assistant Medical; Visit Provider Physician Assistant Medical | DX: C71.9 Malignant neoplasm of brain, unspecified (principal); M25.512 Pain in left shoulder | CPT/HCPCS: 96127 ==